=== PATIENT | male | born 1970 | race Caucasian/White ===

== ENCOUNTER → 2020-01-17 11:37 | Outpatient (BNVA) | payer OTHER, SELFPAY | PROVIDERS: PCP Family Medicine Adult Medicine; Visit Provider Physician Assistant Medical | DX: S16.1XXA Strain of muscle, fascia and tendon at neck level, initial encounter (principal); X50.3XXA Overexertion from repetitive movements, initial encounter | CPT/HCPCS: 72050; 99203 ==

== ENCOUNTER → 2020-01-22 10:03 | Outpatient (BNVA) | payer OTHER, SELFPAY | PROVIDERS: PCP Family Medicine Adult Medicine; Visit Provider Internal Medicine | DX: S16.1XXA Strain of muscle, fascia and tendon at neck level, initial encounter (principal); X58.XXXA Exposure to other specified factors, initial encounter | CPT/HCPCS: 99213 ==

== ENCOUNTER → 2020-01-25 14:49 | Outpatient (BNVA) | payer OTHER, SELFPAY | PROVIDERS: PCP Family Medicine Adult Medicine; Visit Provider Internal Medicine | DX: S16.1XXA Strain of muscle, fascia and tendon at neck level, initial encounter (principal); X58.XXXA Exposure to other specified factors, initial encounter; M50.33 Other cervical disc degeneration, cervicothoracic region | CPT/HCPCS: 99213 ==

== ENCOUNTER → 2020-01-29 13:47 | Outpatient (BNVA) | payer OTHER, SELFPAY | PROVIDERS: PCP Family Medicine Adult Medicine; Visit Provider Internal Medicine | DX: M50.33 Other cervical disc degeneration, cervicothoracic region (principal) | CPT/HCPCS: 99213 ==

== ENCOUNTER 2020-02-12 11:00 | Outpatient (RCR) | payer OTHER, SELFPAY ==
--- NOTE | 2020-03-05 15:46 | MHC.PT.OE ---
[facility] Office [place] Office [place] Office [address] [place]il [place] [address] [phone] F: [phone] F: [phone] F: [phone] F: [phone] Physical Therapy Evaluation Evaluation Date: 02/04/20 Current Condition Diagnosis: CERVICAL STRAIN Onset Date: JANUARY 17, 2020 Date of Surgery: Chief Complaint/ Current Level of Function: WAS MOVING FILE CABINETS IN THE AM AND THEN IN THE AFTERNOON WAS TO MOVE CAST IRON BATHTUBS WITH HANDTRUCK. BEGUN TO FEEL PAIN IN BACK, RATED SHARP AT THE TIME. PAIN CONTINUED THE DAY WENT ON AND BEGAN TO WORSEN AND THROB AND WAS SENT TO WORK CONNECTION. LAST FEW DAYS PAIN HAS BEEN INCREASING . WAS TAKING STERIODS BUT HAS NOW WEANED OFF AND PAIN IS RETURNING. PAIN BEGINS AT C-7 AND RADIATES INTO SHOULDER BLADE REGION, NOTES INCREASE IN HEADACHES IN TEMPORAL REGION. DENIES ARM SYMPTOMS EXCEPT AT NIGHT, THERE WILL BE SOME PINS AND NEEDLES. IMPROVES WITH MOVEMENT AND REPORTS DISRUPTED SLEEP. WORK CONNECTION FOLLOW UP 02/12/20 Prior Level of Function/Occupation: WORKS FOR [employer] IN [employer] Diagnostic Imaging: X-Ray Patient Goals and Expectations: Past Medical History: APPENDETOMY, Medications: VALIUM, TYLENOL, FLEXIRIL, NAPROXEN, CLARTIN Precautions/ Contraindications: NONE-SPECIFIED Outcome Measure: Pain Pain Score: 8 Pain Scale Used: Numeric (0 - 10) Pain Location/ Description: POSTERIOR NECJ AT ABOUT C7 WITH MUSCLE INTO PERISCAP REGION Aggravating Factors: Alleviating Factors: Objective Findings Posture: Forward Head Flattened C-Spine Rounded Shoulders Skin & Soft Tissue/ Palpation: INCREASED TISSUE TENSION WENDY UPPER TRAPS, TIGHT UPPER TRAP TRIGGER POINT AND MULTIPLE TENDER POINTS ALONG BORDER OF SCAP Gait/ Functional Mobility: AROM (PROM) Strength Cervical Spine Flexion: 40 Extension: 30 Lateral Flexion: 35 WENDY Rotation: 25 WENDY Cervical Comments: RESISTED MOTIONS ARE STRONG AND PAINFUL Flexion: Extension: Lateral Flexion: Rotation: Other: Shoulder Flexion: Extension: Abduction: ER: IR: Apley ER: Apley IR: Comments: WNLs, PAIN WITH RIGHT SHOULDER ABDUCTON Flexion: 4/5 Extension: 5/5 Abduction: 4/5 Adduction: NT ER: 06/09 IR: /5 Other: SS 4/ TERES MIN 06/09 Elbow Flexion: Extension: Pronation: Supination: Comments: Flexion: Extension: Pronation: Supination: Wrist Flexion: Wrist Extension: Other: Lumbar Spine Flexion: Extension: Lateral Flexion: Rotation: Comments: Transverse abdominus: Extensors: Other: Hip Flexion: Extension: Abduction: Adduction: ER: IR: Comment: Flexion: Extension: Abduction: Adduction: ER: IR: Other: Knee Flexion: Extension: Comments: Patella Mobility: Flexion: Extension: Other: Ankle Dorsiflexion: Plantarflexion: Inversion: Eversion: Comments: Dorsiflexion: Plantarflexion: Inversion: Eversion: Comments: Fiona Assessment: Sacroiliac Assessment: Muscle Length: Special Tests: Vitals: BP: HR: O2SAT: RR: Other: Balance: Neurological Screen: Biceps DTR: Brachioradialis DTR: Triceps DTR: Patella DTR: Achilles DTR: Other: Dermatomes: Sensation: Myotomes: Patient Education Primary Language Prydeinig Harp Action Assembler Required No Who was Educated Patient Readiness for Learning Accepting Current Knowledge Understands information with skills for self-management Education Needs ADL's Teaching Method Verbal Demonstration How did Patient Demonstrate Learning Patient demonstrates Patient verbalizes Barriers to Learning None Assessment Assessment: AAKASH IS A PLEASANT 49 YO WHO INJURED HIS NECK AT WORK WITH REPETITVE HEAVY/AWKWARD LIFTING OF BATHTUBS. HIS C/C IS NECK AND SCAPULAR PAIN WITH MOVEMENT AND AT NIGHT. PAIN IS DESCRIBED INTERMITTENT, SHARP , THROBBING AND WORSENS WITH ACTIVITY. UPON EXAM HE DEMONSTRATES DECREASED CERVICAL RANGE OF MOTION AND STRENGTH WITH HYPERMOBLITY AT C7, THERE IS DECREASED STRENGTH OF WENDY UE, ALTERED POSTURE AND POSITIONING LEADING TO INCREASED PAIN. FUNCTIONAL LIMIATIONS INCLUDE DECREASED TOLERANCE TO LIFTING, BENDING, PUSHING, PULLING AND SQUATTING, HE HAS DECREASED PARTICIPATION IN RECREATIONAL TASKS, DECREASED ABILITY TO PERFORM WORK TASKS AND DISRUPTED SLEEP. Rehabilitation Potential: Good Plan of Care Frequency and Duration 2XWEEK X 4 WEEKS Short Term Goals INITIATE HEP AND PROMOTE SELF MANAGEMENT OF SYMPTOMS IN 2 WEEKS Group Home Goals TO RTW FT/FD IN 6 WEEKS TO PERFORM FULL FUNCTIONAL FUNCTIONAL SQUAT WITHOUT PAIN GREATER THAN 2/10 IN 6 WEEKS TO DEMONSTRATE FULL PAIN FREE CERVICAL ROM IN 4 WEEKS Treatment Plan Therapeutic Exercise Dynamic Therapeutic Activities Neuromuscular Re-ed Manual Therapies Joint Mobilization Taping Gait Home Exercise Program Patient Education Electrical Stimulation Ultrasound Mechanical Traction Hot or Cold Pack Reviewed/ Agreed with Student Documentation: Therapist: Electronically signed by: Hilary Trujillo PTA Please sign and return to therapist. Thank you for your referral.
--- NOTE | 2020-03-11 14:40 | MHC.PT.DC ---
[facility] [place] Office [place] Office [place] Office [address] [place] [address] [phone] F: [phone] F: [phone] F: [phone] F: [phone] Physical Therapy Discharge Report Diagnosis: CERVICAL STRAIN Date of Surgery: Date of Evaluation: 02/04/20 Date of Discharge: 03/11/20 Treatments to Date: 2 Cancellations to Date: 0 No Shows to Date: 0 Discharge Status: Physician Discontinued Tx Discharge Summary: HAD BEEN PLACED ON HOLD BY WC PENDING MRI. HAS NOT RETURNED FOR PT IN OVER 30 DAYS AND IS DCed AT THIS TIME Electronically signed by: MARIAM GILMAN PT, DPT Please sign and return to therapist. Thank you for your referral.
== END 2020-03-11 14:56 | disposition other institution (70) ==
LOC: HO.PT 11:00
PROVIDERS: Visit Provider Internal Medicine
DX: S16.1XXD Strain of muscle, fascia and tendon at neck level, subsequent encounter (principal); M47.812 Spondylosis without myelopathy or radiculopathy, cervical region
CPT/HCPCS: 97012; 97110; 97140; 97162

== ENCOUNTER → 2020-02-13 14:51 | Outpatient (BNVA) | payer OTHER, SELFPAY | PROVIDERS: PCP Family Medicine Adult Medicine; Visit Provider Internal Medicine | DX: M47.812 Spondylosis without myelopathy or radiculopathy, cervical region (principal) | CPT/HCPCS: 99214 ==

== ENCOUNTER → 2020-02-20 14:21 | Outpatient (BNVA) | payer OTHER, SELFPAY | PROVIDERS: PCP Family Medicine Adult Medicine; Visit Provider Internal Medicine | DX: M54.2 Cervicalgia (principal) | CPT/HCPCS: 99213 ==

== ENCOUNTER 2020-02-22 16:25 | Outpatient (REF) | payer OTHER, SELFPAY ==
--- NOTE | 2020-02-22 | MR_ITS ---
EXAMINATION: MR CERVICAL SPINE WITHOUT CONTRAST CLINICAL INFORMATION: Neck pain. Left-sided shoulder pain. COMPARISON: Cervical spine radiographs from 01/17/2020. TECHNIQUE: MRI of the cervical spine was obtained using routine sequences without contrast. FINDINGS: Straightening of the normal cervical lordosis. Mild degenerative retrolisthesis of C6 on C7. Advanced degenerative disc disease at C6-C7. Moderate degenerative disc disease from C2 to C6. Associated mixed Modic type discogenic endplate changes including mild Modic type I discogenic edema at C6-C7. No additional suspicious marrow edema. Mild degenerative loss of C5 and C6 vertebral body heights. Otherwise, the vertebral body heights are well-maintained. The spinal cord is normal in appearance. Limited evaluation of the soft tissues of the neck without demonstrated abnormalities. The flow voids of the major cervical vessels are maintained. Normal appearance of the cervicomedullary junction and visualized posterior fossa. SPINAL LEVELS: C2-C3: Mild disc-osteophyte complex. There is no uncovertebral joint arthropathy. There is moderate left and moderate facet joint arthropathy. There is no neural foraminal stenosis. There is no spinal canal stenosis. C3-C4: Mild disc-osteophyte complex. There is mild bilateral uncovertebral joint arthropathy. There is mild bilateral facet joint arthropathy. There is mild bilateral neural foraminal stenosis. There is no spinal canal stenosis. C4-C5: Moderate disc-osteophyte complex. There is mild uncovertebral joint arthropathy. There is moderate bilateral facet joint arthropathy. There is mild bilateral neural foraminal stenosis. There is no spinal canal stenosis. C5-C6: Moderate disc-osteophyte complex eccentric to the right. There is moderate right and mild left uncovertebral joint arthropathy. There is moderate bilateral facet joint arthropathy. There is moderate right and no left neural foraminal stenosis. There is no spinal canal stenosis. C6-C7: Moderate disc-osteophyte complex. There is moderate bilateral uncovertebral joint arthropathy. There is moderate bilateral facet joint arthropathy. There is moderate to severe left and moderate neural foraminal stenosis. There is mild spinal canal stenosis. C7-T1: Mild disc-osteophyte complex eccentric to the left. There is no uncovertebral joint arthropathy. There is no facet joint arthropathy. There is no neural foraminal stenosis. There is no spinal canal stenosis. MR/MR cervical spine wo con IMPRESSION: Moderate multilevel degenerative spondyloarthropathy of the cervical spine as described in detail above. Most notably, there is mild spinal canal stenosis at C6-C7. Moderate neural foraminal stenoses at C5-C6 and C6-C7.
== END 2020-02-22 16:26 | disposition home or self-care (01) ==
LOC: HO.MRI 16:25
PROVIDERS: Visit Provider Internal Medicine
DX: M54.2 Cervicalgia (principal)
CPT/HCPCS: 72141

== ENCOUNTER → 2020-02-27 14:18 | Outpatient (BNVA) | payer OTHER, SELFPAY | PROVIDERS: PCP Family Medicine Adult Medicine; Visit Provider Internal Medicine | DX: M54.10 Radiculopathy, site unspecified (principal) | CPT/HCPCS: 99214 ==

== ENCOUNTER → 2020-03-12 14:05 | Outpatient (BNVA) | payer OTHER, SELFPAY | PROVIDERS: PCP Family Medicine Adult Medicine; Visit Provider Internal Medicine | DX: M50.30 Other cervical disc degeneration, unspecified cervical region (principal); M47.812 Spondylosis without myelopathy or radiculopathy, cervical region | CPT/HCPCS: 99213 ==

== ENCOUNTER 2021-04-15 19:31 | Outpatient (REF) | payer OTHER, MEDICAID, SELFPAY ==
--- NOTE | ~2021-04-15 | MR_ITS ---
EXAMINATION: MR CERVICAL SPINE WITHOUT CONTRAST CLINICAL INFORMATION: 50-year-old with complaints of neck pain, with positive EMG, with left-sided cervical radicular symptoms. Radiculopathy, cervical region. COMPARISON: 02/22/2020 MRI. TECHNIQUE: MRI of the cervical spine was obtained using routine sequences without contrast. FINDINGS: Alignment: The cervical spine is anatomically aligned. No significant spondylolisthesis or retrolisthesis. Craniocervical Junction/C1-C2 Articulations: Intact and aligned. Visualized Intracranial Structures: Within normal limits. Vertebral Bodies: Normal height. Disc Spaces and Endplates: Severe disc space height loss, tiny Schmorl's nodes, disc desiccation and mild spondylosis at C6-C7, stable in appearance. Moderate disc space height loss and qiph-wq-tdljywsa spondylosis at C5-C6, unchanged in appearance. Minimal spondylosis at C4-C5 with disc desiccation noted at C2-C3, C3-C4 and C4-C5, stable in appearance. Fewv-ld-mrdagjyy disc space height loss and minimal spondylosis at C7-T1, stable in appearance. Bone Marrow: No significant marrow-replacing process or bone marrow edema. There is type II degenerative marrow signal change seen along the endplates at C6-C7 stable in appearance. C2-C3: Minor posterolateral disc osteophyte complex stable from previous exam without significant spinal canal stenosis or cord impingement. No significant DJD or neural foraminal stenosis. C3-C4: Broad-based disc osteophyte complex again noted, with near effacement of the ventral dural sac without cord impingement, stable in appearance. No significant central spinal canal stenosis. There is mild facet arthropathy and uncovertebral spurring noted with mild bilateral neural foraminal stenosis, stable in appearance. C4-C5: Central disc protrusion and the disc osteophyte complex noted with the moderate flattening of the ventral dural sac without cord impingement, stable in appearance, without significant spinal canal stenosis. Bilateral lung of facet arthropathy and uncovertebral spurring again noted with rgjo-fk-cjlaacat right-sided and moderate left-sided neural foraminal stenosis, stable in appearance. C5-C6: Broad-based disc osteophyte complex asymmetric to the right again noted, with vzjr-xp-njxyhosm flattening of the dural sac, right more the left without cord impingement or significant central spinal canal stenosis, unchanged in appearance. Bilateral uncovertebral spurring and facet arthropathy also noted with moderate right-sided and jirw-cx-rkppfhvi left-sided neural foraminal stenosis, stable in appearance. C6-C7: Broad-based disc osteophyte complex again noted, with the icjk-qg-ianzgwpn flattening of the ventral dural sac with a superimposed broad-based central disc herniation, stable in appearance, without cord impingement. There is mild central spinal canal narrowing, stable in appearance. Bilateral uncovertebral spurring is again noted with rvwrclsq-pe-eksqyt left-sided and traf-vf-nlarmovt right-sided neural foraminal stenosis, unchanged in appearance. C7-T1: Disc osteophyte complex noted asymmetric to the left with slight flattening of the dural sac on the left, stable in appearance, without cord impingement or canal stenosis. There is uncovertebral spurring on the left, stable in appearance, with moderate left-sided neural foraminal stenosis, unchanged in appearance. The cervical and visualized upper thoracic spinal cord is normal in morphology, caliber and signal intensity throughout. Normal signal voids are seen in the visualized major extracranial vessels in the neck. MR/MR cervical spine wo con IMPRESSION: 1. Normal spinal alignment. Multilevel DDD and spondylosis similar to the previous exam. 2. Multilevel posterior disc osteophyte complexes and superimposed central disc protrusions, with flattening of the ventral dural sac without spinal cord impingement, stable in appearance, with stable mild spinal canal stenosis at C6-C7. 3. Stable multilevel uncovertebral and facet arthropathy bilaterally throughout the cervical spine as detailed above with stable multilevel bilateral neural foraminal stenosis as detailed by level above.
== END 2021-04-15 19:32 | disposition home or self-care (01) ==
LOC: HO.MRI 19:31
PROVIDERS: Visit Provider Orthopaedic Surgery Orthopaedic Surgery of the Spine
DX: M54.12 Radiculopathy, cervical region (principal)
CPT/HCPCS: 72141

== ENCOUNTER 2021-05-10 21:37 | Emergency (ER) | payer MEDICAID, SELFPAY ==
--- NOTE | ~2021-05-10 | XR_ITS ---
EXAMINATION: XR CHEST CLINICAL INFORMATION: Chest pain COMPARISON: Previous chest x-ray July 2010 TECHNIQUE: Frontal view of the chest was obtained. FINDINGS: No significant abnormality is noted involving the heart, lungs, mediastinum, bony thorax or soft tissues. XR/XR chest 1V IMPRESSION: Unremarkable examination.
--- NOTE | 2021-05-10 21:47 | ECG_ITS ---
Test Reason : CHEST PAIN Blood Pressure : / mmHG Vent. Rate : 071 BPM Atrial Rate : 071 BPM P-R Int : 152 ms QRS Dur : 086 ms QT Int : 388 ms P-R-T Axes : 021 021 036 degrees QTc Int : 421 ms Normal sinus rhythm Normal ECG No previous ECGs available Referred By: Generic ED Physician Electronically Signed By:KAJAL PRAKASH MD
[2021-05-10 22:17] VITALS: BP 134/78; PULSE 75; RESP 18; TEMP 37.1; O2SAT 97; BMI 32.8
[2021-05-10 22:45] LABS: MANUAL DIFF FLAG NO
[2021-05-10 22:48] LABS: Basophils Absolute Auto 0.1 X10*3/uL (0.0-0.2); Basophils Percent Auto 0.5 % (0-2); Eosinophils Absolute Auto 0.4 X10*3/uL (0.0-0.4); Eosinophils Percent Auto 4.4 % (0-4); Hemoglobin 14.2 g/dl (14.0-18.0); Imm Gran Abs Auto 0.02 X10*3/uL (0.00-0.03); Imm Gran Pct Auto 0.2 % (0.0-0.4); Lymphocytes Absolute Auto 3.4 X10*3/uL (1.2-4.9); Lymphocytes Percent Auto 37.1 % (20-40); Mean Corpuscular HGB Conc 35.5 g/dl (31.0-36.0); Mean Corpuscular Hemoglobin 31.5 pg (27.0-33.0); Mean Corpuscular Volume 88.7 fL (80.0-98.0); Mean Platelet Volume 9.5 fL (9.4-12.4); Monocytes Absolute Auto 0.8 X10*3/uL (0.1-1.2); Monocytes Percent Auto 8.4 % (2-11); Neutrophils Absolute Auto 4.5 x10*3/uL (2.0-8.3); Neutrophils Percent Auto 49.4 % (45-73); Platelet Count 256 X10*3/uL (160-400); Red Blood Count 4.51 X10*6/uL (4.60-5.80); Red Cell Distribution Width 12.1 % (11.0-16.0); White Blood Count 9.1 X10*3/uL (4.8-10.8)
[2021-05-10 22:49] LABS: Appearance Urine CLEAR; Color Urine YELLOW; Glucose Urine UA NEG (NEG); Leukocyte Esterase Urine NEG (NEG); Nitrite Urine NEG (NEG); PH 5.5 (5.0-8.0); Specific Gravity - Urine >= 1.030 (1.005-1.025); Urine Blood NEG (NEG); Urine Ketones NEG (NEG); Urine Protein NEG (NEG-TRACE)
[2021-05-10 23:06] LABS: Alanine Aminotransferase 49 U/L (0-40); Albumin Level 4.2 g/dL (3.5-5.0); Alkaline Phosphatase 79 U/L (39-117); Anion Gap 12 (12-20); Aspartate Amino Transferase 20 U/L (5-37); Bilirubin Total 0.5 mg/dL (0.0-1.0); Blood Urea Nitrogen 23 mg/dL (9-16); Calcium 9.5 mg/dL (8.4-10.2); Carbon Dioxide 24 mmol/L (22-29); Chloride 106 mmol/L (96-108); Creatinine Clr Calc Pharmacy 83.3; Estimated Glomerular Filt Rate > 60; Glucose Random 91 mg/dL (60-115); Potassium 3.9 mmol/L (3.3-5.1); Sodium 138 mmol/L (135-145)
[2021-05-10 23:13] LABS: Troponin-I High Sensitivity < 3.5 ng/L (<3.5-35.0)
[2021-05-11 00:52] VITALS: BP 156/92; PULSE 66; RESP 18; TEMP 36.6; O2SAT 97
--- NOTE | 2021-05-11 01:38 | ED.GENADULT ---
HPI - General Adult General Chief complaint: General Medical Stated complaint: chest pain Time Seen by Provider: 05/11/21 01:38 Source: patient Mode of arrival: ambulatory History of Present Illness HPI narrative: 50-year-old male with history of hypertension presents with complaints of ?pounding heart? that is been ongoing for a while now. There is no radiation to the back or upper extremity and this not been associated with new cough, fever, chills, nausea, vomiting and patient denies any recent alcohol use stating that he quit drinking alcohol over a year ago. Patient states that he has reproducible pain on palpation over the left anterior chest wall and denies any traumatic injury. Patient states the pain is worse in the morning but sometimes it is worse at night and denies any change with position in states when he takes a deep breath it also hurts. Related Data Previous Rx's Medication Instructions Recorded loratadine 10 mg tablet 10 mg PO DAILY #90 tab 05/14/20 Allergies Allergy/AdvReac Type Severity Reaction Status Date / Time From PERCOCET Allergy Unknown WHOOZY Uncoded 05/10/21 22:16 seasonal allergy Allergy Unknown Sneezing Uncoded 05/10/21 22:16 Review of Systems Review of Systems: Pertinent positives and negatives as stated in HPI 10 point review of systems is otherwise negative. PMFSH Past Medical History Source: nursing notes reviewed Social History Social History Alcohol intake: current Patient Tobacco Use Status: Never used Tobacco Use of substances other than those prescribed or required for medical reasons: No Advance Directives: No Advance Directives Information Provided: No Physical Exam ED Vital Signs: Vital Signs - 24 hr 05/10/21 22:17 05/11/21 00:52 Temperature 98.8 F 97.8 F Pulse Rate 75 66 Respiratory Rate 18 18 Blood Pressure 134/78 156/92 H Pulse Oximetry 97 97 BMI result Body Mass Index 32.8 VITAL SIGNS: Reviewed. GENERAL: Well developed, well nourished, appears very anxious HEAD: Normocephalic/atraumatic EYES: PERRLA, EOMI OROPHARYNX: no oral lesions noted, posterior pharynx clear LUNGS: Normal breath sounds. No adventitious sounds or accessory muscle use. SpO2<97>, CHEST WALL: Reproducible pain on palpation over left anterior chest CARDIOVASCULAR: Regular rate and rhythm without noted murmurs, no JVD or lower extremity edema. ABDOMEN: Soft, non-tender, non-distended with bowel sounds. MUSCULOSKELETAL: No tenderness, deformities, or effusions noted on gross inspection. EXTREMITIES: No cyanosis, clubbing or edema. SKIN: Inspection of the skin reveals no rashes NEUROLOGIC: Alert and oriented x 4. Strength and sensation to light touch were grossly intact x 4. Course Course Course Narrative: 50-year-old male with history and clinical presentation suggestive of possible costochondritis in combination with anxiety, low clinical suspicion for cardiopulmonary etiologies as there is no history of cough/fever, review of EKG and high sensitivity troponin are otherwise benign. Will provide patient with medication for anxiety. Low clinical suspicion for pericarditis, myocarditis, angina. D-dimer in conjunction with low clinical suspicion negative for evidence of VTE. All results and findings discussed with the patient at bedside and clinically he appears there is more calm after receiving the hydroxyzine. I did discussed with the patient that there may be a component of acid reflux as well as anxiety. He is otherwise discharged home in stable condition with instructions to follow-up with a primary care provider. Medical Decision Making Lab Data Result diagrams: 05/10/21 22:38 05/10/21 22:38 Labs: Lab Results 05/10/21 05/10/21 05/10/21 Range/Units 22:38 22:38 22:38 WBC 9.1 (4.8-10.8) X10*3/uL RBC 4.51 L (4.60-5.80) X10*6/uL Hgb 14.2 (14.0-18.0) g/dl Hct 40.0 L (42.0-52.0) % MCV 88.7 (80.0-98.0) fL MCH 31.5 (27.0-33.0) pg MCHC 35.5 (31.0-36.0) g/dl RDW 12.1 (11.0-16.0) % Plt Count 256 (160-400) X10*3/uL MPV 9.5 (9.4-12.4) fL Immature Gran % (Auto) 0.2 (0.0-0.4) % Neut % (Auto) 49.4 (45-73) % Lymph % (Auto) 37.1 (20-40) % [place] % (Auto) 8.4 (2-11) % Eos % (Auto) 4.4 H (0-4) % Baso % (Auto) 0.5 (0-2) % Lymph # (Auto) 3.4 (1.2-4.9) X10*3/uL [place] # (Auto) 0.8 (0.1-1.2) X10*3/uL Eos # (Auto) 0.4 (0.0-0.4) X10*3/uL Baso # (Auto) 0.1 (0.0-0.2) X10*3/uL Abs Immat Gran (auto) 0.02 (0.00-0.03) X10*3/uL Absolute Neuts (auto) 4.5 (2.0-8.3) x10*3/uL Absolute Nucleated RBC 0.000 (0.0-0.012) X10*3/uL Nucleated RBC % (auto) 0.0 (0.0-0.2) /100WBC D-Dimer High Sensitivty NG/ML Sodium 138 (135-145) mmol/L Potassium 3.9 (3.3-5.1) mmol/L Chloride 106 (96-108) mmol/L Carbon Dioxide 24 (22-29) mmol/L Anion Gap 12 (12-20) BUN 23 H (9-16) mg/dL Creatinine 1.14 (0.5-1.4) mg/dL Estim Creat Clear Calc 83.3 Estimated GFR > 60 Random Glucose 91 (60-115) mg/dL Calcium 9.5 (8.4-10.2) mg/dL Total Bilirubin 0.5 (0.0-1.0) mg/dL AST 20 (5-37) U/L ALT 49 H (0-40) U/L Alkaline Phosphatase 79 (39-117) U/L Troponin I High Sens < 3.5 (<3.5-35.0) ng/L Total Protein 7.0 (6.5-8.0) g/dL Albumin 4.2 (3.5-5.0) g/dL Lipase 77 (8-78) U/L Urine Color Urine Appearance Urine pH (5.0-8.0) Ur Specific [place] (1.005-1.025) Urine Protein (NEG-TRACE) MG/DL Urine Glucose (UA) (NEG) MG/DL Urine Ketones (NEG) MG/DL Urine Blood (NEG) Urine Nitrite (NEG) Ur Leukocyte Esterase (NEG) 05/10/21 05/11/21 Range/Units 22:38 02:05 WBC (4.8-10.8) X10*3/uL RBC (4.60-5.80) X10*6/uL Hgb (14.0-18.0) g/dl Hct (42.0-52.0) % MCV (80.0-98.0) fL MCH (27.0-33.0) pg MCHC (31.0-36.0) g/dl RDW (11.0-16.0) % Plt Count (160-400) X10*3/uL MPV (9.4-12.4) fL Immature Gran % (Auto) (0.0-0.4) % Neut % (Auto) (45-73) % Lymph % (Auto) (20-40) % [place] % (Auto) (2-11) % Eos % (Auto) (0-4) % Baso % (Auto) (0-2) % Lymph # (Auto) (1.2-4.9) X10*3/uL [place] # (Auto) (0.1-1.2) X10*3/uL Eos # (Auto) (0.0-0.4) X10*3/uL Baso # (Auto) (0.0-0.2) X10*3/uL Abs Immat Gran (auto) (0.00-0.03) X10*3/uL Absolute Neuts (auto) (2.0-8.3) x10*3/uL Absolute Nucleated RBC (0.0-0.012) X10*3/uL Nucleated RBC % (auto) (0.0-0.2) /100WBC D-Dimer High Sensitivty 233 NG/ML Sodium (135-145) mmol/L Potassium (3.3-5.1) mmol/L Chloride (96-108) mmol/L Carbon Dioxide (22-29) mmol/L Anion Gap (12-20) BUN (9-16) mg/dL Creatinine (0.5-1.4) mg/dL Estim Creat Clear Calc Estimated GFR Random Glucose (60-115) mg/dL Calcium (8.4-10.2) mg/dL Total Bilirubin (0.0-1.0) mg/dL AST (5-37) U/L ALT (0-40) U/L Alkaline Phosphatase (39-117) U/L Troponin I High Sens (<3.5-35.0) ng/L Total Protein (6.5-8.0) g/dL Albumin (3.5-5.0) g/dL Lipase (8-78) U/L Urine Color YELLOW Urine Appearance CLEAR Urine pH 5.5 (5.0-8.0) Ur Specific [place] >= 1.030 H (1.005-1.025) Urine Protein NEG (NEG-TRACE) MG/DL Urine Glucose (UA) NEG (NEG) MG/DL Urine Ketones NEG (NEG) MG/DL Urine Blood NEG (NEG) Urine Nitrite NEG (NEG) Ur Leukocyte Esterase NEG (NEG) ECG Data Attestation: I personally reviewed and interpreted this ECG as follows: Prior ECG tracings: not available for review Interpretation: Normal sinus rhythm, HR-71, no STEMI, IA/QRS/QTC are within normal limits. Discharge Plan Discharge Clinical Impression: Anxiety, Atypical chest pain Patient Disposition: Home, Self-Care Instructions: Anxiety (ED), Chest Wall Pain (ED), Costochondritis (ED) Additional Instructions: 1. Tylenol 1000 mg, orally, every 6 hours as needed for pain control. Do not exceed 4000 mg within 24 hours. 2. Recommend trying oaxa-hnb-hxsgxpt acid control medication as well for additional symptom relief. 3. Ibuprofen 400 mg, orally with milk or food, every 6 hours as needed for pain control. 4. Follow-up with your primary care provider in the next 2-3 days for re-evaluation further outpatient management. Return to the ER for worsening symptoms. Prescriptions: No Action loratadine 10 mg tablet 10 mg PO DAILY Qty: 90 3RF
[2021-05-11 01:56] LABS: Lipase 77 U/L (8-78)
[2021-05-11] MEDS: hydrOXYzine HCL 50 MG TABLET PO (02:13)
[2021-05-11 02:16] LABS: D Dimer High Sensitivity 233 NG/ML
--- NOTE | 2021-05-11 02:23 | PC.NURSE ---
I assumed nursing care of this pt upon his arrival to bed 4. Tc states he came tot he ED for chest heaviness/pressure and my breathing just doesn't feel right . He is alert, oriented x 3, makes eye contact with RN and is calm and cooperative. Speech is clear and appropriate. Tc appears mildly anxious.Respirations are spontaneous and non-labored, he speaks in full sentences, no cyanosis, room air sat's 95% or better. SR on bedside monitor. he currently denies chest pain but admits to tightness in his chest - 06/14. No nausea. No vomiting. he takes PO meds with Po fluids without difficulty. He has ambulated rom bed 4 to bathroom across from bed 2 and back to bed 4 independently and with steady gait. He voided in bathroom without difficulty. IV access/D-dimer obtained. Pt i awaiting MD dispo. We will continue to monitor Tc.
== END 2021-05-11 02:56 | disposition home or self-care (01) ==
PROVIDERS: Emergency Provider Student in an Organized Health Care Education/Training Program
DX: R07.89 Other chest pain (principal); F41.1 Generalized anxiety disorder; F43.0 Acute stress reaction; Z79.899 Other long term (current) drug therapy
CPT/HCPCS: 36415; 71045; 80053; 81003; 83690; 84484; 85025; 85379; 93005; 99284

== ENCOUNTER 2022-09-21 12:35 | Outpatient (REF) | payer MEDICAID, SELFPAY ==
[2022-09-21 13:37] LABS: MANUAL DIFF FLAG NO
[2022-09-21 13:59] LABS: Basophils Percent Auto 0.6 % (0-2); Eosinophils Absolute Auto 0.5 X10*3/uL (0.0-0.4); Eosinophils Percent Auto 6.9 % (0-4); Hematocrit 45.6 % (42.0-52.0); Hemoglobin 15.4 g/dl (14.0-18.0); Imm Gran Abs Auto 0.01 X10*3/uL (0.00-0.03); Imm Gran Pct Auto 0.1 % (0.0-0.4); Lymphocytes Absolute Auto 2.2 X10*3/uL (1.2-4.9); Lymphocytes Percent Auto 30.7 % (20-40); Mean Corpuscular HGB Conc 33.8 g/dl (31.0-36.0); Mean Corpuscular Hemoglobin 30.6 pg (27.0-33.0); Mean Corpuscular Volume 90.5 fL (80.0-98.0); Mean Platelet Volume 10.8 fL (9.4-12.4); Monocytes Absolute Auto 0.6 X10*3/uL (0.1-1.2); Monocytes Percent Auto 7.8 % (2-11); Neutrophils Absolute Auto 3.9 x10*3/uL (2.0-8.3); Neutrophils Percent Auto 53.9 % (45-73); Platelet Count 258 X10*3/uL (160-400); Red Blood Count 5.04 X10*6/uL (4.60-5.80); White Blood Count 7.2 X10*3/uL (4.8-10.8)
[2022-09-21 14:18] LABS: Estimated Average Glucose 108 mg/dL; Hemoglobin A1c % 5.4 %
[2022-09-21 15:02] LABS: Alanine Aminotransferase 33 U/L (0-40); Albumin Level 4.4 g/dL (3.5-5.0); Alkaline Phosphatase 98 U/L (39-117); Anion Gap 13 (12-20); Aspartate Amino Transferase 21 U/L (5-37); Bilirubin Total 0.8 mg/dL (0.0-1.0); Blood Urea Nitrogen 12 mg/dL (9-16); Calcium 9.9 mg/dL (8.4-10.2); Carbon Dioxide 26 mmol/L (22-29); Chloride 106 mmol/L (96-108); Cholesterol 215 mg/dL; Estimated Glomerular Filt Rate > 60; Glucose Random 82 mg/dL (60-115); HDL Cholesterol 27 mg/dL; LDL Cholesterol Calculated 170 mg/dl; Potassium 4.6 mmol/L (3.3-5.1); Sodium 140 mmol/L (135-145); Total Protein 7.7 g/dL (6.5-8.0); Triglycerides 93 mg/dL
[2022-09-21 15:07] LABS: TSH reflex Free T4 1.14 uIU/mL (0.32-4.0)
[2022-09-21 18:42] LABS: Creatinine Urine 158.24 mg/dL; Microalbum/Creatinine Ratio Ur 15.1 ug/mg cr
[2022-09-22 04:57] LABS: ~HepC Num1 0.07 S/CO (0.00-0.79); ~Hepatitis C Antibody Nonreactive (Nonreactive)
[2022-09-22 05:01] LABS: Syphilis Screen Nonreactive (Nonreactive)
[2022-09-22 05:03] LABS: HBS Num1 0.16 mIU/mL (0-7.99); HBc Num1 0.14 S/CO (0.00-0.79); HBsAGNum1 0.36 S/CO (0.00-0.99); HIV AB/AG Nonreactive (Nonreactive); HIV Num 1 0.05 S/CO (0.00-0.99); Hepatitis B Core Antibody Nonreactive (Nonreactive); Hepatitis B Surface Antigen Negative (Negative); ~Hepatitis B Surface Antibody NONREACTIVE (Nonreactive)
[2022-09-22 09:50] LABS: CT PCR NOT DETECTED (Not Detect.); NG PCR NOT DETECTED (Not Detect.)
== END 2022-09-21 12:36 | disposition home or self-care (01) ==
LOC: HO.HHCL 12:35
PROVIDERS: Visit Provider Student in an Organized Health Care Education/Training Program
DX: Z00.00 Encounter for general adult medical examination without abnormal findings (principal); Z11.4 Encounter for screening for human immunodeficiency virus [HIV]
CPT/HCPCS: 0353U; 80053; 80061; 82043; 83036; 84443; 85025; 86704; 86706; 86780; 86803; 87340; 87389

== ENCOUNTER 2022-11-19 11:04 | Outpatient (REF) | payer MEDICAID, SELFPAY ==
[2022-11-19 14:53] LABS: MANUAL DIFF FLAG NO
[2022-11-19 15:10] LABS: Basophils Absolute Auto 0.1 X10*3/uL (0.0-0.2); Basophils Percent Auto 0.8 % (0-2); Eosinophils Absolute Auto 0.6 X10*3/uL (0.0-0.4); Eosinophils Percent Auto 8.2 % (0-4); Hematocrit 43.5 % (42.0-52.0); Hemoglobin 14.7 g/dl (14.0-18.0); Imm Gran Abs Auto 0.01 X10*3/uL (0.00-0.03); Imm Gran Pct Auto 0.1 % (0.0-0.4); Lymphocytes Absolute Auto 2.4 X10*3/uL (1.2-4.9); Lymphocytes Percent Auto 32.3 % (20-40); Mean Corpuscular HGB Conc 33.8 g/dl (31.0-36.0); Mean Corpuscular Volume 91.8 fL (80.0-98.0); Mean Platelet Volume 10.1 fL (9.4-12.4); Monocytes Absolute Auto 0.5 X10*3/uL (0.1-1.2); Monocytes Percent Auto 7.4 % (2-11); Neutrophils Absolute Auto 3.7 x10*3/uL (2.0-8.3); Neutrophils Percent Auto 51.2 % (45-73); Platelet Count 288 X10*3/uL (160-400); Red Blood Count 4.74 X10*6/uL (4.60-5.80); Red Cell Distribution Width 12.4 % (11.0-16.0); White Blood Count 7.3 X10*3/uL (4.8-10.8)
[2022-11-19 15:39] LABS: Estimated Average Glucose 108 mg/dL; Hemoglobin A1c % 5.4 % (<6.0); Syphilis Screen Nonreactive (Nonreactive)
[2022-11-19 15:55] LABS: Alanine Aminotransferase 45 U/L (0-40); Albumin Level 4.4 g/dL (3.5-5.0); Alkaline Phosphatase 100 U/L (39-117); Anion Gap 11 (12-20); Aspartate Amino Transferase 26 U/L (5-37); Bilirubin Total 0.6 mg/dL (0.0-1.0); Blood Urea Nitrogen 21 mg/dL (9-16); Calcium 9.6 mg/dL (8.4-10.2); Carbon Dioxide 25 mmol/L (22-29); Chloride 107 mmol/L (96-108); Cholesterol 219 mg/dL (<200); Estimated Glomerular Filt Rate > 60; Glucose Random 88 mg/dL (60-115); HDL Cholesterol 28 mg/dL (>40); LDL Cholesterol Calculated 174 mg/dL (<100); Potassium 4.4 mmol/L (3.3-5.1); Sodium 139 mmol/L (135-145); TSH reflex Free T4 1.42 uIU/mL (0.32-4.0); Total Protein 7.6 g/dL (6.5-8.0); Triglycerides 89 mg/dL (<150)
[2022-11-19 16:09] LABS: Creatinine Urine 139.65 mg/dL; Microalbum/Creatinine Ratio Ur 27.2 ug/mg cr (<30)
[2022-11-20 04:28] LABS: HBS Num1 0.31 mIU/mL (0-7.99); HBc Num1 0.12 S/CO (0.00-0.79); HBsAGNum1 0.47 S/CO (0.00-0.99); HIV AB/AG Nonreactive (Nonreactive); HIV Num 1 0.05 S/CO (0.00-0.99); Hepatitis B Core Antibody Nonreactive (Nonreactive); Hepatitis B Surface Antigen Negative (Negative); ~Hepatitis B Surface Antibody NONREACTIVE (Nonreactive)
[2022-11-20 04:33] LABS: ~HepC Num1 0.08 S/CO (0.00-0.79); ~Hepatitis C Antibody Nonreactive (Nonreactive)
[2022-11-20 05:41] LABS: CT PCR NOT DETECTED (Not Detect.); NG PCR NOT DETECTED (Not Detect.)
[2022-11-22 16:19] LABS: TS Negative Control Passed; TS Panel A 0; TS Panel B 0; TS Positive Control Passed; TSpotTB Negative (Negative)
== END 2022-11-19 11:05 | disposition home or self-care (01) ==
LOC: HO.HHCL 11:04
PROVIDERS: Visit Provider Internal Medicine
DX: Z00.00 Encounter for general adult medical examination without abnormal findings (principal); Z11.4 Encounter for screening for human immunodeficiency virus [HIV]; Z11.1 Encounter for screening for respiratory tuberculosis; Z11.3 Encounter for screening for infections with a predominantly sexual mode of transmission; L40.8 Other psoriasis
CPT/HCPCS: 0353U; 80053; 80061; 82043; 82570; 83036; 84443; 85025; 86481; 86704; 86706; 86780; 86803; 87340; 87389

== ENCOUNTER 2023-01-25 13:01 | Outpatient (REF) | payer MEDICAID, SELFPAY ==
--- NOTE | ~2023-01-25 | XR_ITS ---
EXAMINATION: XR CHEST CLINICAL INFORMATION: Cough. Treated for pneumonia last month. COMPARISON: Chest x-ray 05/10/2021 TECHNIQUE: 2 views of the chest were obtained. FINDINGS: The lungs are well-expanded and clear. The heart size and pulmonary vascularity is normal. There is mild spondylosis dorsal spine. XR/XR chest 2V IMPRESSION: No acute cardiopulmonary process seen.
== END 2023-01-25 13:02 | disposition home or self-care (01) ==
LOC: HO.HHCX 13:01
PROVIDERS: Visit Provider Student in an Organized Health Care Education/Training Program
DX: J18.9 Pneumonia, unspecified organism (principal)
CPT/HCPCS: 71046

== ENCOUNTER 2023-07-11 15:22 | Inpatient (IN) | payer MEDICAID, SELFPAY ==
[2023-07-11] VITALS (9 sets, daily range): BP systolic 130–147; BP diastolic 58–82; PULSE 90–106; RESP 18–29; TEMP 36.5–36.8; O2SAT 90–95; BMI 38.1
--- NOTE | ~2023-07-11 | XR_ITS ---
EXAMINATION: XR CHEST CLINICAL INFORMATION: Shortness of breath COMPARISON: Chest 01/25/2023 TECHNIQUE: AP upright portable view of the chest was obtained. 4:00 PM FINDINGS: The lungs are well expanded. No focal consolidation, interstitial pulmonary edema or pneumothorax. No pleural effusion. No significant abnormality is noted involving the heart, mediastinum or soft tissues. Metallic densities are again seen over the lower cervical spine. XR/XR chest 1V IMPRESSION: No acute cardiopulmonary disease.
--- NOTE | 2023-07-11 15:38 | ECG_ITS ---
Test Reason : SOB Blood Pressure : / mmHG Vent. Rate : 103 BPM Atrial Rate : 103 BPM P-R Int : 118 ms QRS Dur : 090 ms QT Int : 366 ms P-R-T Axes : 070 033 056 degrees QTc Int : 479 ms Sinus tachycardia Nonspecific ST abnormality Abnormal ECG When compared with ECG of 10-MAY-2021 21:47, ST now depressed in Lateral leads QT has lengthened Referred By: Coretta Oscar Electronically Signed By:Isreal Her
--- NOTE | 2023-07-11 15:53 | ED.SOB ---
HPI - SOB/Dyspnea General Chief Complaint: Asthma Stated Complaint: SOB,HX ADTHMA, ON DUONEB. Time Seen by Provider: 07/11/23 15:52 Source: patient, family and EMS Mode of arrival: EMS History of Present Illness HPI Narrative: 52-year-old male who is received DuoNebs, Solu-Medrol, Mag. Comes in with worsening shortness breath over the past few days, started on 6 L nasal cannula at the clinic and has a history of asthma. Patient denies any smoking/vaping history. Related Data Home Medications ?Medication ?Instructions ?Recorded ?Confirmed clonazepam 09/09/22 ibuprofen 09/09/22 tramadol 50 mg PO DAILY PRN Pain 09/09/22 Previous Rx's ?Medication ?Instructions ?Recorded loratadine 10 mg tablet 10 mg PO DAILY #90 tabs 05/14/20 Allergies Allergy/AdvReac Type Severity Reaction Status Date / Time oxycodone [From Percocet] Allergy whoozy Verified 07/11/23 15:55 Review of Systems Review of Systems: Pertinent positives and negatives as stated in HPI PMFSH Past Medical History Source: nursing notes reviewed Medical History Seasonal allergies Neck pain Surgical History History of colonoscopy with polypectomy Hx of appendectomy Social History Social History Alcohol intake: current Patient Tobacco Use Status: Never used Tobacco Advance Directives: No Advance Directives Information Provided: No Do you have a plan to hurt others: No Plan Physical Exam Vital Signs: Vital Signs: Last Vital Signs Temp 97.7 F 07/11/23 16:38 Pulse 106 H 07/11/23 17:41 Resp 21 H 07/11/23 17:41 BP 137/67 07/11/23 16:38 Pulse Ox 90 L 07/11/23 15:51 O2 Del Method Nasal Cannula 07/11/23 16:38 O2 Flow Rate 4 07/11/23 16:38 Oxygen Flow Rate 4 07/11/23 15:51 BMI result Body Mass Index 38.1 VITAL SIGNS: Reviewed. GENERAL: Well developed, well nourished, in no acute distress. HEAD: Normocephalic/atraumatic EYES: PERRLA, EOMI EARS: Ext canals without abnormality NOSE: Nares patent bilateral OROPHARYNX: no oral lesions noted, posterior pharynx clear NECK: Supple, no adenopathy LUNGS: Decreased breath sounds throughout with tachypnea and increased work of breathing. SpO2<90> on 3 L nasal cannula CARDIOVASCULAR: Regular rate and rhythm without noted murmurs, no JVD or lower extremity edema. ABDOMEN: Soft, non-tender, non-distended with bowel sounds. MUSCULOSKELETAL: No tenderness, deformities, or effusions noted on gross inspection. EXTREMITIES: No cyanosis, clubbing or edema. SKIN: Inspection of the skin reveals no rashes NEUROLOGIC: Alert and oriented x 4. Strength and sensation to light touch were grossly intact x 4. Medications Administered Discontinued Medications Generic Name Dose Route Start Last Admin Trade Name Freq PRN Reason Stop Dose Admin Albuterol Sulfate 7.5 mg/ 0 mg 07/11/23 16:08 07/11/23 16:15 Albuterol/Ipratropium 3 ml INHALE 07/11/23 16:09 10 each ONCE ONE Administration Levalbuterol HCl 3.75 mg 07/11/23 16:57 07/11/23 17:03 Levalbuterol Hcl 1.25 Mg/3 Ml Vial.Neb INHALE 07/11/23 16:58 3.75 mg ONCE ONE Administration Levalbuterol HCl 2.5 mg 07/11/23 17:35 07/11/23 17:40 Levalbuterol Hcl 1.25 Mg/3 Ml Vial.Neb INHALE 07/11/23 17:36 2.5 mg ONCE ONE Administration Medical Decision Making Medical Decision Making [facility] Narrative: 52-year-old male with history and clinical presentation, DDX: Acute severe asthma exacerbation and already received DuoNeb/Solu-Medrol/magnesium INTERVENTION: ED bronch protocol, supplemental oxygen I reviewed all investigations and hematologic indices are negative for leukocytosis/anemia/thrombocytopenia. Chemistry indices negative for JAYSON/electrolyte or liver enzyme derangements and high sensitivity troponin is undetectable. Viral testing is negative for influenza/RSV/COVID-19 and chest x-ray is negative for infiltrate or venous congestion and otherwise my interpretation is in agreement with radiology's impression of the chest x-ray. Patient has received several doses of nebulized treatments and is gradually starting to open up but continues to require supplemental oxygen. 1748: I discussed case with inpatient hospitalist who accepts admission. Differential Diagnosis Differential Diagnoses: The differential diagnosis associated with the presentation includes Please see the discussion above Admission/Observation Consideration of admission/observation: Escalation of care including admission/observation considered Please see the discussion above Consult Healthcare Provider Management of the patient was discussed with: Hospitalist Please see the discussion above Lab Data MDM Lab Attestation statement: I reviewed the patient's lab results. Please see the discussion above 07/11/23 16:52 07/11/23 16:52 Labs: Lab Results 07/11/23 Range/Units 16:52 WBC 10.6 (4.8-10.8) X10*3/uL RBC 4.54 L (4.60-5.80) X10*6/uL Hgb 14.4 (14.0-18.0) g/dl Hct 40.6 L (42.0-52.0) % MCV 89.4 (80.0-98.0) fL MCH 31.7 (27.0-33.0) pg MCHC 35.5 (31.0-36.0) g/dl RDW 12.4 (11.0-16.0) % Plt Count 251 (160-400) X10*3/uL MPV 9.3 L (9.4-12.4) fL Immature Gran % (Auto) 0.3 (0.0-0.4) % Neut % (Auto) 65.0 (45-73) % Lymph % (Auto) 18.5 L (20-40) % [place] % (Auto) 5.0 (2-11) % Eos % (Auto) 10.6 H (0-4) % Baso % (Auto) 0.6 (0-2) % Lymph # (Auto) 2.0 (1.2-4.9) X10*3/uL [place] # (Auto) 0.5 (0.1-1.2) X10*3/uL Eos # (Auto) 1.1 H (0.0-0.4) X10*3/uL Baso # (Auto) 0.1 (0.0-0.2) X10*3/uL Abs Immat Gran (auto) 0.03 (0.00-0.03) X10*3/uL Absolute Neuts (auto) 6.9 (2.0-8.3) x10*3/uL Absolute Nucleated RBC 0.000 (0.0-0.012) X10*3/uL Nucleated RBC % (auto) 0.0 (0.0-0.2) /100WBC Sodium 143 (135-145) mmol/L Potassium 3.6 (3.3-5.1) mmol/L Chloride 111 H (96-108) mmol/L Carbon Dioxide 21 L (22-29) mmol/L Anion Gap 15 (12-20) BUN 13 (9-16) mg/dL Creatinine 1.01 (0.5-1.4) mg/dL Estim Creat Clear Calc 99.0 Estimated GFR > 60 Random Glucose 133 H (60-115) mg/dL Calcium 9.3 (8.4-10.2) mg/dL Magnesium 2.4 (1.6-2.6) mg/dL Total Bilirubin 0.6 (0.0-1.0) mg/dL AST 18 (5-37) U/L ALT 24 (0-40) U/L Alkaline Phosphatase 98 (39-117) U/L Troponin I High Sens < 2.7 (<3.5-35.0) ng/L Total Protein 7.4 (6.5-8.0) g/dL Albumin 4.1 (3.5-5.0) g/dL Influenza Type A (PCR) NEGATIVE (Negative) Influenza Type B (PCR) NEGATIVE (Negative) RSV RNA Qual (PCR) NEGATIVE (Negative) SARS-CoV-2 RNA (RT-PCR) NEGATIVE (Negative) Independent Interpretation I performed an independent interpretation of an: EKG Interpretation: Sinus tachycardia, HR-103, no STEMI, NE/QRS/QTC is within normal limits. Nonspecific ST-T changes. Radiology Impression Discussion of test interpretation with radiology: I have reviewed the radiologist's reading. Radiologist Impression: Please see the discussion above External Record Review External record reviewed: Outpatient record, Prior outpatient labs and Prior outpatient radiology Chronic Conditions Asthma Critical Care Time Critical Care Time Critical Care Time: Yes Total Critical Care Time: 60 Attestation: I personally attest to this time spent taking care of the patient. Discharge Plan Discharge Clinical Impression: Asthma exacerbation, Acute hypoxemic respiratory failure Patient Disposition: Admitted As Inpatient Print Language: Yemeni
[2023-07-11] MEDS: Albuterol Sulfate 7.5 MG, Albuterol/Iprat 2.5/0.5MG 3 ML 3 ML INHALE (16:15)
[2023-07-11 16:58] LABS: MANUAL DIFF FLAG NO
[2023-07-11 16:59] LABS: Basophils Absolute Auto 0.1 X10*3/uL (0.0-0.2); Basophils Percent Auto 0.6 % (0-2); Eosinophils Absolute Auto 1.1 X10*3/uL (0.0-0.4); Eosinophils Percent Auto 10.6 % (0-4); Hematocrit 40.6 % (42.0-52.0); Hemoglobin 14.4 g/dl (14.0-18.0); Imm Gran Abs Auto 0.03 X10*3/uL (0.00-0.03); Imm Gran Pct Auto 0.3 % (0.0-0.4); Lymphocytes Percent Auto 18.5 % (20-40); Mean Corpuscular HGB Conc 35.5 g/dl (31.0-36.0); Mean Corpuscular Hemoglobin 31.7 pg (27.0-33.0); Mean Corpuscular Volume 89.4 fL (80.0-98.0); Mean Platelet Volume 9.3 fL (9.4-12.4); Monocytes Absolute Auto 0.5 X10*3/uL (0.1-1.2); Neutrophils Absolute Auto 6.9 x10*3/uL (2.0-8.3); Platelet Count 251 X10*3/uL (160-400); Red Blood Count 4.54 X10*6/uL (4.60-5.80); Red Cell Distribution Width 12.4 % (11.0-16.0); White Blood Count 10.6 X10*3/uL (4.8-10.8)
[2023-07-11] MEDS: levalbuterol HCL 1.25 MG/3 ML VIAL.NEB 3.75 MG INHALE (17:03)
[2023-07-11 17:14] LABS: Alanine Aminotransferase 24 U/L (0-40); Albumin Level 4.1 g/dL (3.5-5.0); Alkaline Phosphatase 98 U/L (39-117); Anion Gap 15 (12-20); Aspartate Amino Transferase 18 U/L (5-37); Bilirubin Total 0.6 mg/dL (0.0-1.0); Blood Urea Nitrogen 13 mg/dL (9-16); Calcium 9.3 mg/dL (8.4-10.2); Carbon Dioxide 21 mmol/L (22-29); Chloride 111 mmol/L (96-108); Estimated Glomerular Filt Rate > 60; Glucose Random 133 mg/dL (60-115); Magnesium 2.4 mg/dL (1.6-2.6); Potassium 3.6 mmol/L (3.3-5.1); Sodium 143 mmol/L (135-145); Total Protein 7.4 g/dL (6.5-8.0)
[2023-07-11 17:32] LABS: Troponin-I High Sensitivity < 2.7 ng/L (<3.5-35.0)
[2023-07-11] MEDS: levalbuterol HCL 1.25 MG/3 ML VIAL.NEB 2.5 MG INHALE (17:40)
[2023-07-11 17:43] LABS: Influenza A PCR NEGATIVE (Negative); Influenza B PCR NEGATIVE (Negative); Resp Syncy Virus RNA Qual PCR NEGATIVE (Negative); SARS COV2 PCR INHOUSE NEGATIVE (Negative)
[2023-07-11 18:18] LABS: VBG Base Excess -4.4 mmol/L; VBG HCO3 20 mmol/L (22-26); VBG pCO2 34 mmHg; VBG pH 7.37 (7.32-7.43); VBG pO2 43 mmHg
[2023-07-11 18:18] LABS: Venous Blood Gas Refer to POC result
--- NOTE | 2023-07-11 18:25 | P.HPHOSP_ITS ---
History of Present Illness Date of Service: 07/11/23 Chief Complaint: shortness of breath 52-year-old gentleman with essentially no past medical history save asthma presents with 2-3 days of worsening shortness of breath. He states his last acute exacerbation was proximally 10 years remote. He states his inhalers were not helpful to relieve his symptoms. Upon arrival to emergency room patient required 6 L of O2 to maintain sats greater than equal to 90%. He received DuoNebs/magnesium with fair results Review of Systems 2 Review of Systems: Denies chest pain Admits shortness of breath at rest and with minimal exertion Denies nausea vomiting diarrhea Denies fever chills PMFSH Medical History Seasonal allergies Neck pain Surgical History History of colonoscopy with polypectomy Hx of appendectomy Social History Alcohol intake: current Patient Tobacco Use Status: Never used Tobacco Advance Directives: No Advance Directives Information Provided: No Do you have a plan to hurt others: No Plan Meds Allergies Allergy/AdvReac Type Severity Reaction Status Date / Time oxycodone [From Percocet] Allergy whoozy Verified 07/11/23 15:55 Active Medications: Current Medications Acetaminophen (Acetaminophen 325 Mg Tablet) 650 mg PO Q6H PRN PRN Reason: Pain, Mild (Pain Scale 1-3) Al Hydroxide/Mg Hydroxide (Magnesium Hydrox/Alum Hydrox 30 Ml Oral.Susp) 30 ml PO Q4H PRN PRN Reason: Heartburn/Nausea Enoxaparin Sodium (Enoxaparin Sodium 40 Mg/0.4 Ml Syringe) 40 mg SUBCUT Q24H [facility] Doxycycline Hyclate 100 mg/ (Sodium Chloride) 250 mls @ 166.67 mls/hr IV Q12H [facility] Methylprednisolone Sodium Succinate (Methylprednisolone Sod Succ 125 Mg/2 Ml Vial) 125 mg IVPUSH ONCE ONE Stop: 07/11/23 18:23 Methylprednisolone Sodium Succinate (Methylprednisolone Sod Succ 125 Mg/2 Ml Vial) 60 mg IVPUSH Q6H [facility] Ondansetron HCl (Ondansetron Hcl 4 Mg/2 Ml Vial) 4 mg IVPUSH Q8H PRN PRN Reason: Nausea and Vomiting Sodium Chloride (0.9 % Sodium Chloride Flush 3 Ml Syringe) 3 ml IVFLUSH QSHIFT [facility] Home Medications ?Medication ?Instructions ?Recorded ?Confirmed ?Last Taken ?Type albuterol sulfate 2.5 mg/3 mL 2.5 mg inhalation Q4H PRN 07/11/23 Unknown History (0.083 %) solution for nebulization Shortness Of Breath Or Wheezing budesonide 180 mcg/actuation 2 inh inhalation BID 07/11/23 Unknown History breath activated powder inhaler (Pulmicort Flexhaler) bupropion HCl 150 mg tablet,12 hr 150 mg PO BID 07/11/23 Unknown History sustained-release fexofenadine 180 mg tablet 180 mg PO DAILY 07/11/23 Unknown History fluticasone propionate 50 1 - 2 spray intranasal QAM 07/11/23 Unknown History mcg/actuation nasal spray,suspension ipratropium 20 mcg-albuterol 100 1 puff inhalation QID 07/11/23 Unknown History mcg/actuation mist for inhalation (Combivent Respimat) Physical Exam 2 Vital Signs and Narrative: Vital Signs: Last Vital Signs Temp 97.7 F 07/11/23 16:38 Pulse 106 H 07/11/23 17:41 Resp 21 H 07/11/23 17:41 BP 137/67 07/11/23 16:38 Pulse Ox 90 L 07/11/23 15:51 O2 Del Method Nasal Cannula 07/11/23 16:38 O2 Flow Rate 4 07/11/23 16:38 Oxygen Flow Rate 4 07/11/23 15:51 BMI result Body Mass Index 38.1 Const: Other: Awake alert able to speak in short sentences only Resp: Other: Diminished at bases with diffuse expiratory wheezes Cardio: Other: No S4; positive S1-S2; no S3 murmurs rubs or gallops GI: Other: Soft nontender nondistended normoactive bowel sounds Neuro: Other: Cranial nerves 2-12 grossly intact as tested. Motor is 5/5 all extremities. Sensation is intact Extrem: Other: No edema bilaterally Results Labs 07/11/23 16:52 07/11/23 16:52 Labs: Laboratory Results - last 24 hr 07/11/23 07/11/23 16:52 18:12 MCV 89.4 MCH 31.7 MCHC 35.5 RDW 12.4 Plt Count 251 MPV 9.3 L Immature Gran % (Auto) 0.3 Neut % (Auto) 65.0 Lymph % (Auto) 18.5 L [place] % (Auto) 5.0 Eos % (Auto) 10.6 H Baso % (Auto) 0.6 Lymph # (Auto) 2.0 [place] # (Auto) 0.5 Eos # (Auto) 1.1 H Baso # (Auto) 0.1 Abs Immat Gran (auto) 0.03 Absolute Neuts (auto) 6.9 Absolute Nucleated RBC 0.000 Nucleated RBC % (auto) 0.0 VBG pH 7.37 VBG pCO2 34 VBG pO2 43 VBG HCO3 20 L VBG O2 Saturation 69.0 VBG Base Excess -4.4 Anion Gap 15 Estim Creat Clear Calc 99.0 Estimated GFR > 60 Random Glucose 133 H Calcium 9.3 Magnesium 2.4 Total Bilirubin 0.6 AST 18 ALT 24 Alkaline Phosphatase 98 Troponin I High Sens < 2.7 Total Protein 7.4 Albumin 4.1 Influenza Type A (PCR) NEGATIVE Influenza Type B (PCR) NEGATIVE RSV RNA Qual (PCR) NEGATIVE SARS-CoV-2 RNA (RT-PCR) NEGATIVE Imaging Radiologist's Impressions: Impressions Chest X-Ray 07/11/23 16:00 IMPRESSION: No acute cardiopulmonary disease. Assessment and Plan (1) Acute hypoxemic respiratory failure: Status: Acute (2) Asthma exacerbation: Qualifiers: Asthma severity: mild Asthma persistence: intermittent Qualified Code(s): J45.21 - Mild intermittent asthma with (acute) exacerbation Status: Acute Plan 52-year-old male with known history of asthma in the absence of tobacco or any other inhaled substance presents with worsening shortness of breath over 2-3 days that has failed outpatient therapies. He does recount a productive cough of green sputum 1. Acute hypoxic respiratory failure secondary to mild intermittent asthma exacerbation -pulse dose methylprednisolone -DuoNebs q.4 hours -doxycycline 100 mg IV q.12 hours -titrate O2 to maintain sats greater than equal to 92% Full code Boots Requires at least 2 midnights going forward of inpatient stay for pulse dose methylprednisolone and doxycycline to treat asthma exacerbation that has failed outpatient therapies. This can not be achieved a lesser acute setting Quality Stroke Does the patient have a stroke diagnosis?: No VTE Prior VTE?: No VTE Risk Level:: Medical - moderate - high VTE Device Contraindication: Treatment Not Indicated VTE Drug Contraindication: N/A - Med Ordered
[2023-07-11] MEDS: Albuterol/Iprat 2.5/0.5MG 3 ML AMPUL.NEB INHALE ×2 (18:42→20:50)
--- NOTE | 2023-07-11 19:07 | PHA.MEDREC ---
Pharmacy Consult ? Medication Reconciliation Pharmacy has completed the medication reconciliation. Patient reported medications. Nely Flower, MonicaD
[2023-07-11] MEDS: methylPREDNISolone Sod Succ 125 MG/2 ML VIAL IVPUSH (19:14)
[2023-07-11] MEDS: Enoxaparin Sodium 40 MG/0.4 ML SYRINGE SUBCUT (19:15)
[2023-07-11] MEDS: Doxycycline Hyclate 100 MG in 0.9 % Sodium Chloride 250 ML 166.67 MG IV (19:15)
[2023-07-12] VITALS (12 sets, daily range): BP systolic 108–136; BP diastolic 49–72; PULSE 86–103; RESP 18–27; TEMP 36.2–37; O2SAT 92–95
[2023-07-12 06:07] LABS: MANUAL DIFF FLAG NO
[2023-07-12 06:10] LABS: Basophils Percent Auto 0.2 % (0-2); Hemoglobin 13.6 g/dl (14.0-18.0); Imm Gran Abs Auto 0.07 X10*3/uL (0.00-0.03); Imm Gran Pct Auto 0.6 % (0.0-0.4); Lymphocytes Percent Auto 8.9 % (20-40); Mean Corpuscular Hemoglobin 30.9 pg (27.0-33.0); Mean Corpuscular Volume 90.9 fL (80.0-98.0); Monocytes Absolute Auto 0.1 X10*3/uL (0.1-1.2); Monocytes Percent Auto 0.7 % (2-11); Neutrophils Absolute Auto 9.9 x10*3/uL (2.0-8.3); Neutrophils Percent Auto 89.6 % (45-73); Platelet Count 271 X10*3/uL (160-400); Red Cell Distribution Width 12.5 % (11.0-16.0); White Blood Count 11.1 X10*3/uL (4.8-10.8)
[2023-07-12 06:33] LABS: Alanine Aminotransferase 23 U/L (0-40); Alkaline Phosphatase 90 U/L (39-117); Anion Gap 19 (12-20); Aspartate Amino Transferase 14 U/L (5-37); Bilirubin Total 0.4 mg/dL (0.0-1.0); Blood Urea Nitrogen 18 mg/dL (9-16); Calcium 9.8 mg/dL (8.4-10.2); Carbon Dioxide 16 mmol/L (22-29); Chloride 111 mmol/L (96-108); Estimated Glomerular Filt Rate > 60; Glucose Random 145 mg/dL (60-115); Potassium 3.6 mmol/L (3.3-5.1); Sodium 142 mmol/L (135-145); Total Protein 7.1 g/dL (6.5-8.0)
[2023-07-12] MEDS: Doxycycline Hyclate 100 MG in 0.9 % Sodium Chloride 250 ML 166.67 MG IV ×2 (07:33→20:09)
[2023-07-12] MEDS: methylPREDNISolone Sod Succ 125 MG/2 ML VIAL 60 MG IVPUSH ×3 (07:33→18:06)
[2023-07-12] MEDS: 0.9 % Sodium Chloride Flush 3 ML SYRINGE IVFLUSH ×2 (07:33→15:33)
--- NOTE | 2023-07-12 08:01 | PC.NURSE ---
alert and oriented, resting quietly in room. reporting feeling much better than when he presented yesterday. eating breakfast at this time. offering no other complaints, remains on the oxymask. call gudino is within reach.
[2023-07-12] MEDS: Albuterol/Iprat 2.5/0.5MG 3 ML AMPUL.NEB INHALE ×5 (08:21→23:16)
--- NOTE | 2023-07-12 09:29 | MHC.CM.PN ---
Patient lives in a home w/ step father. Functionally independent. PCP Kylee Garcia MD @ [facility] Completed HCP naming agents 1) Latha Cadena [phone], 2) son José Miguel Faisal [phone] DP: Goal is home self care via private transport. CM will continue to follow.
--- NOTE | 2023-07-12 10:50 | P.PNIM_ITS ---
Subjective Subjective Date of Service: 07/12/23 Review of Systems Follow up asthma exacerbation feeling better still with cough Physical Exam 2 Vital Signs: Vital Signs: Last Vital Signs Temp 98.2 F 07/12/23 08:00 Pulse 96 07/12/23 08:22 Resp 19 07/12/23 08:22 BP 136/72 07/12/23 08:00 Pulse Ox 92 07/12/23 08:00 O2 Del Method Aerosol Mask 07/12/23 08:00 O2 Flow Rate 3.0 07/12/23 08:00 Oxygen Flow Rate 4 07/11/23 15:51 BMI result Body Mass Index 38.1 Appearing in no acute distress lung sounds are clear to auscultation heart regular rate rhythm, clear S1, S2 positive bowel sounds, abdomen is soft, nontender neuro patient is alert x3, no focal deficits Objective Data Active Medications Acetaminophen (Acetaminophen 325 Mg Tablet) 650 mg PO Q6H PRN PRN Reason: Pain, Mild (Pain Scale 1-3) Al Hydroxide/Mg Hydroxide (Magnesium Hydrox/Alum Hydrox 30 Ml Oral.Susp) 30 ml PO Q4H PRN PRN Reason: Heartburn/Nausea Albuterol/Ipratropium (Albuterol/Iprat 2.5/0.5mg 3 Ml Ampul.Neb) 3 ml INHALE RQ4H [facility] Last Admin: 07/12/23 08:21 Dose: 3 ml Documented By: ALYSA Enoxaparin Sodium (Enoxaparin Sodium 40 Mg/0.4 Ml Syringe) 40 mg SUBCUT Q24H [facility] Last Admin: 07/11/23 19:15 Dose: 40 mg Documented By: DARREL Doxycycline Hyclate 100 mg/ (Sodium Chloride) 250 mls @ 166.67 mls/hr IV Q12H [facility] Last Infusion: 07/12/23 09:06 Dose: Infused Documented By: PHUC Methylprednisolone Sodium Succinate (Methylprednisolone Sod Succ 125 Mg/2 Ml Vial) 60 mg IVPUSH Q6H [facility] Last Admin: 07/12/23 07:33 Dose: 60 mg Documented By: CLAIRE Ondansetron HCl (Ondansetron Hcl 4 Mg/2 Ml Vial) 4 mg IVPUSH Q8H PRN PRN Reason: Nausea and Vomiting Sodium Chloride (0.9 % Sodium Chloride Flush 3 Ml Syringe) 3 ml IVFLUSH QSHIFT [facility] Last Admin: 07/12/23 07:33 Dose: 3 ml Documented By: CLAIRE Labs 07/12/23 05:04 07/12/23 05:04 Labs: Laboratory Results - last 24 hr 07/11/23 07/11/23 07/12/23 16:52 18:12 05:04 MCV 89.4 90.9 MCH 31.7 30.9 MCHC 35.5 34.0 RDW 12.4 12.5 Plt Count 251 271 MPV 9.3 L 10.0 Immature Gran % (Auto) 0.3 0.6 H Neut % (Auto) 65.0 89.6 H Lymph % (Auto) 18.5 L 8.9 L [place] % (Auto) 5.0 0.7 L Eos % (Auto) 10.6 H 0.0 Baso % (Auto) 0.6 0.2 Lymph # (Auto) 2.0 1.0 L [place] # (Auto) 0.5 0.1 Eos # (Auto) 1.1 H 0.0 Baso # (Auto) 0.1 0.0 Abs Immat Gran (auto) 0.03 0.07 H Absolute Neuts (auto) 6.9 9.9 H Absolute Nucleated RBC 0.000 0.000 Nucleated RBC % (auto) 0.0 0.0 VBG pH 7.37 VBG pCO2 34 VBG pO2 43 VBG HCO3 20 L VBG O2 Saturation 69.0 VBG Base Excess -4.4 Anion Gap 15 19 Estim Creat Clear Calc 99.0 101.0 Estimated GFR > 60 > 60 Random Glucose 133 H 145 H Calcium 9.3 9.8 Magnesium 2.4 Total Bilirubin 0.6 0.4 AST 18 14 ALT 24 23 Alkaline Phosphatase 98 90 Troponin I High Sens < 2.7 Total Protein 7.4 7.1 Albumin 4.1 4.0 Influenza Type A (PCR) NEGATIVE Influenza Type B (PCR) NEGATIVE RSV RNA Qual (PCR) NEGATIVE SARS-CoV-2 RNA (RT-PCR) NEGATIVE Assessment and Plan (1) Acute hypoxemic respiratory failure: Status: Acute (2) Asthma exacerbation: Status: Acute Plan 52-year-old male with known history of asthma in the absence of tobacco or any other inhaled substance presents with worsening shortness of breath over 2-3 days that has failed outpatient therapies. He does recount a productive cough of green sputum Acute hypoxic respiratory failure secondary to mild intermittent asthma exacerbation solumedrol, scheduled duonebs doxycycline 100 mg IV q.12 hours titrate O2 to maintain sats greater than equal to 92% DVT prophylaxis with Lovenox Attending Dr. Bergman Full code Continue inpatient stay for pulse dose methylprednisolone and doxycycline to treat asthma exacerbation that has failed outpatient therapies. This can not be achieved a lesser acute setting Quality Stroke Does the patient have a stroke diagnosis?: No VTE Prior VTE?: No VTE Risk Level:: Medical - moderate - high VTE Device Contraindication: Treatment Not Indicated VTE Drug Contraindication: N/A - Med Ordered
[2023-07-12] MEDS: Ibuprofen 400 MG TABLET PO ×2 (12:10→20:19)
[2023-07-12] MEDS: Enoxaparin Sodium 40 MG/0.4 ML SYRINGE SUBCUT (20:09)
--- NOTE | 2023-07-12 23:15 | PC.RT ---
pt placed on sleep study RN aware
[2023-07-13] VITALS (9 sets, daily range): BP systolic 135–145; BP diastolic 68–75; PULSE 82–99; RESP 16–20; TEMP 36.3–36.8; O2SAT 89–96
[2023-07-13] MEDS: 0.9 % Sodium Chloride Flush 3 ML SYRINGE IVFLUSH ×4 (01:03→23:54)
[2023-07-13] MEDS: methylPREDNISolone Sod Succ 125 MG/2 ML VIAL 60 MG IVPUSH ×5 (01:03→23:54)
[2023-07-13] MEDS: Albuterol/Iprat 2.5/0.5MG 3 ML AMPUL.NEB INHALE ×4 (07:56→20:00)
[2023-07-13] MEDS: Doxycycline Hyclate 100 MG in 0.9 % Sodium Chloride 250 ML 166.66 MG IV ×2 (08:20→22:23)
[2023-07-13] MEDS: Ibuprofen 400 MG TABLET PO ×3 (10:40→23:52)
--- NOTE | 2023-07-13 12:00 | PM.DS ---
DS: Providers Provider Date of Service: 07/13/23 <Calli Osborn NP - Last Filed: 07/13/23 12:21> 07/14/23 <BERNIE Garcia - Last Filed: 07/14/23 09:53> Date of admission: 07/11/23 18:20 <Calli Osborn NP - Last Filed: 07/13/23 12:21> Primary care physician: Kylee Garcia MD <Calli Osborn NP - Last Filed: 07/13/23 12:21> Attending physician on discharge: Jordon Bergman <BERNIE Garcia - Last Filed: 07/14/23 09:53> Discharging clinician: Mackenzie Mueller <BERNIE Garcia - Last Filed: 07/14/23 09:53> DS: Diagnosis Discharge Diagnosis (1) Acute hypoxemic respiratory failure: Status: Acute <Calli Osborn NP - Last Filed: 07/13/23 12:21> (2) Asthma exacerbation: Status: Acute <Calli Osborn NP - Last Filed: 07/13/23 12:21> DS: Summary Hospital Course Hospital Course: History and physical as per admitting provider. 52-year-old gentleman with essentially no past medical history save asthma presents with 2-3 days of worsening shortness of breath. He states his last acute exacerbation was proximally 10 years remote. He states his inhalers were not helpful to relieve his symptoms. Upon arrival to emergency room patient required 6 L of O2 to maintain sats greater than equal to 90%. He received DuoNebs/magnesium with fair results. 52-year-old man treated for acute hypoxic respiratory failure secondary to mild intermittent asthma exacerbation. Treated with IV Solu-Medrol, scheduled DuoNebs, IV doxycycline. Chest x-ray showed no evidence of pneumonia, COVID, flu, RSV negative. He was treated with oxygen and titrated off. Plan is for patient to be discharged on new prescription for Breo. He can continue using his DuoNeb machine versus albuterol pump inhaler. He will complete a total of 5 days of doxycycline so 2 more days outpatient. And he will be on a short course prednisone taper. Recommend outpatient follow up with PCP and consideration of formal PFTs. Breathing has improved significantly and he is able to ambulate without shortness of breath. Currently saturating in the mid 90s room air. <Calli Osborn NP - Last Filed: 07/13/23 12:21> Time Attestation Discharge Coordination Time (in mins): 31 <Jordon Bergman MD - Last Filed: 07/14/23 09:23> Quality: Safe Use of Opioids Does Pt have an Active Cancer Diagnosis on the Problem List?: No <Jordon Bergman MD - Last Filed: 07/14/23 09:23> Quality: Stroke Does the patient have a stroke diagnosis?: No <Jordon Bergman MD - Last Filed: 07/14/23 09:23> Physical Exam Vital Signs: Vital Signs: Last Vital Signs Temp 98.3 F 07/13/23 08:00 Pulse 94 07/13/23 08:00 Resp 18 07/13/23 08:00 BP 139/68 07/13/23 08:00 Pulse Ox 96 07/13/23 08:00 O2 Del Method Room Air 07/13/23 08:00 O2 Flow Rate 3 07/12/23 20:21 Oxygen Flow Rate 4 07/11/23 15:51 BMI result Body Mass Index 38.1 <Calli Osborn NP - Last Filed: 07/13/23 12:21> Appearing in no acute distress head is normocephalic atraumatic eyes pupils are PERRLA sclera is anicteric mouth throat mucous membranes are intact and moist neck is supple no lymphadenopathy, no JVD noted lung sounds are clear to auscultation heart regular rate rhythm, clear S1, S2 positive bowel sounds, abdomen is soft, nontender neuro patient is alert x3, no focal deficits <Calli Osborn NP - Last Filed: 07/13/23 12:21> Const: General: cooperative, no acute distress, alert and awake <BERNIE Garcia - Last Filed: 07/14/23 09:53> Nutritional Appearance: overweight <BERNIE Garcia - Last Filed: 07/14/23 09:53> Orientation/consciousness: patient oriented x3 <BERNIE Garcia - Last Filed: 07/14/23 09:53> Resp: Effort & Inspection: normal respiratory effort, able to speak in complete sentences, no respiratory distress and no use of accessory muscles <BERNIE Garcia - Last Filed: 07/14/23 09:53> Cardio: Rate: regular rate <BERNIE Garcia - Last Filed: 07/14/23 09:53> GI: Inspection: No distended <BERNIE Garcia - Last Filed: 07/14/23 09:53> Palpation (GI): Soft to palpation and nontender <BERNIE Garcia - Last Filed: 07/14/23 09:53> Neuro: General: patient oriented x3, moves all extremities and CN's II-XI intact bilaterally <BERNIE Garcia - Last Filed: 07/14/23 09:53> Discharge Plan Discharge Anticipated Discharge Date/Time: 07/14/23 09:53 <Calli Osborn NP - Last Filed: 07/13/23 12:21> Patient Disposition: Home, Self-Care <Calli Osborn NP - Last Filed: 07/13/23 12:21> Discharge Diagnosis: Acute hypoxemic respiratory failure Asthma exacerbation <Calli Osborn NP - Last Filed: 07/13/23 12:21> Acute hypoxemic respiratory failure Asthma exacerbation <Jordon Bergman MD - Last Filed: 07/14/23 09:23> Acute hypoxemic respiratory failure Asthma exacerbation <BERNIE Garcia - Last Filed: 07/14/23 09:53> Referrals: Kylee Guerra MD [Primary Care Provider] - 1 Week <Calli Osborn NP - Last Filed: 07/13/23 12:21> Discharge Medications: New doxycycline hyclate 100 mg tablet 100 mg PO BID Qty: 4 0RF albuterol sulfate 2.5 mg/0.5 mL solution for nebulization 2.5 mg inhalation QID PRN (Reason: shortness of breath or wheezing) Qty: 30 0RF albuterol sulfate 90 mcg/actuation aerosol powdr breath activated 2 inh inhalation Q6H PRN (Reason: shortness of breath or wheezing) Qty: 1 0RF Breo Ellipta 50-25 mcg/dose blister with device 1 inh inhalation DAILY Qty: 60 0RF prednisone 10 mg tablet See Taper PO DIRECTED Qty: 20 0RF Taper: Prednisone 40 mg daily for 2 Days and 0 Hour 30 mg daily for 2 Days and 0 Hour 20 mg daily for 2 Days and 0 Hour 10 mg daily for 2 Days and 0 Hour Rx Instructions: see taper instructions Mucus DM 30-600 mg Tablet Extended Release 12 Hr 1 tab PO BID PRN (Reason: cough) Qty: 10 0RF Continued fexofenadine 180 mg tablet 180 mg PO DAILY clonazepam 0.5 mg tablet 0.5 mg PO DAILY PRN (Reason: anxiety) ibuprofen [Advil] 200 mg Tablet 400 mg PO Q6H PRN (Reason: Pain) Discontinued albuterol sulfate 2.5 mg /3 mL (0.083 %) solution for nebulization 2.5 mg inhalation Q4H PRN (Reason: Shortness Of Breath Or Wheezing) fluticasone propionate 50 mcg/actuation spray,suspension 1 - 2 spray intranasal QAM Pulmicort Flexhaler 180 mcg/actuation aerosol powdr breath activated 2 inh INHALATION BID Combivent Respimat 20-100 mcg/actuation mist 1 puff inhalation QID <Calli Osborn NP - Last Filed: 07/13/23 12:21> Discharge Orders: Discharge Order (Routine); Ordered 07/14/23 Ordered By: Mackenzie Mueller <Calli Osborn NP - Last Filed: 07/13/23 12:21> Diet: Advance to usual diet <Calli Osborn NP - Last Filed: 07/13/23 12:21> Advance to usual diet <Jordon Bergman MD - Last Filed: 07/14/23 09:23> Advance to usual diet <BERNIE Garcia - Last Filed: 07/14/23 09:53> Activity on Discharge: As tolerated <Calli Osborn NP - Last Filed: 07/13/23 12:21> As tolerated <Jordon Bergman MD - Last Filed: 07/14/23 09:23> As tolerated <BERNIE Garcia - Last Filed: 07/14/23 09:53> Stand Alone Forms: Patient Portal Discharge page <Calli Osborn NP - Last Filed: 07/13/23 12:21> Print Language: Andorran <Calli Osborn NP - Last Filed: 07/13/23 12:21> Care Plan Goals: You have been started on new medications for your asthma, please take as prescribed <Calli Osborn NP - Last Filed: 07/13/23 12:21> Health Concerns: Acute hypoxic respiratory failure Asthma exacerbation <Calli Osborn NP - Last Filed: 07/13/23 12:21> Plan of Treatment: Call to schedule a follow up appointment with your PCP for close outpatint follow up can consider formal PFTs if not previously done Take all medications as prescribed <Calli Osborn NP - Last Filed: 07/13/23 12:21> Assessment: See discharge summary <Calli Osborn NP - Last Filed: 07/13/23 12:21>
--- NOTE | 2023-07-13 12:21 | P.PNIM_ITS ---
Subjective Subjective Date of Service: 07/13/23 Review of Systems Follow up asthma exacerbation feeling better still with cough and some mild sob with exertion Physical Exam 2 Vital Signs: Vital Signs: Last Vital Signs Temp 98.3 F 07/13/23 08:00 Pulse 94 07/13/23 12:14 Resp 18 07/13/23 12:14 BP 139/68 07/13/23 08:00 Pulse Ox 96 07/13/23 08:00 O2 Del Method Room Air 07/13/23 08:00 O2 Flow Rate 3 07/12/23 20:21 Oxygen Flow Rate 4 07/11/23 15:51 BMI result Body Mass Index 38.1 Appearing in no acute distress lung sounds exp wheezing heart regular rate rhythm, clear S1, S2 positive bowel sounds, abdomen is soft, nontender neuro patient is alert x3, no focal deficits Objective Data Active Medications Acetaminophen (Acetaminophen 325 Mg Tablet) 650 mg PO Q6H PRN PRN Reason: Pain, Mild (Pain Scale 1-3) Al Hydroxide/Mg Hydroxide (Magnesium Hydrox/Alum Hydrox 30 Ml Oral.Susp) 30 ml PO Q4H PRN PRN Reason: Heartburn/Nausea Albuterol/Ipratropium (Albuterol/Iprat 2.5/0.5mg 3 Ml Ampul.Neb) 3 ml INHALE RQ4H [facility] Last Admin: 07/13/23 12:14 Dose: 3 ml Documented By: DEISI Enoxaparin Sodium (Enoxaparin Sodium 40 Mg/0.4 Ml Syringe) 40 mg SUBCUT Q24H [facility] Last Admin: 07/12/23 20:09 Dose: 40 mg Documented By: ALIX Doxycycline Hyclate 100 mg/ (Sodium Chloride) 250 mls @ 166.67 mls/hr IV Q12H [facility] Last Infusion: 07/13/23 10:01 Dose: Infused Documented By: PHUC Ibuprofen (Ibuprofen 400 Mg Tablet) 400 mg PO Q6H PRN PRN Reason: Headache Last Admin: 07/13/23 10:40 Dose: 400 mg Documented By: PHUC Methylprednisolone Sodium Succinate (Methylprednisolone Sod Succ 125 Mg/2 Ml Vial) 60 mg IVPUSH Q6H [facility] Last Admin: 07/13/23 06:08 Dose: 60 mg Documented By: KATIE Ondansetron HCl (Ondansetron Hcl 4 Mg/2 Ml Vial) 4 mg IVPUSH Q8H PRN PRN Reason: Nausea and Vomiting Sodium Chloride (0.9 % Sodium Chloride Flush 3 Ml Syringe) 3 ml IVFLUSH QSHIFT [facility] Last Admin: 07/13/23 08:20 Dose: 3 ml Documented By: PHUC Tan 07/12/23 05:04 07/12/23 05:04 Assessment and Plan (1) Acute hypoxemic respiratory failure: Status: Acute (2) Asthma exacerbation: Status: Acute Plan 52-year-old male with known history of asthma in the absence of tobacco or any other inhaled substance presents with worsening shortness of breath over 2-3 days that has failed outpatient therapies. He does recount a productive cough of green sputum Acute hypoxic respiratory failure secondary to mild intermittent asthma exacerbation still with some sob with exertion continue solumedrol, scheduled duonebs continue doxycycline 100 mg IV q.12 hours titrate O2 to maintain sats greater than equal to 92% DVT prophylaxis with Lovenox Attending Dr. Bergman Full code Continue inpatient stay for pulse dose methylprednisolone and doxycycline to treat asthma exacerbation that has failed outpatient therapies. This can not be achieved a lesser acute setting Quality Stroke Does the patient have a stroke diagnosis?: No VTE Prior VTE?: No VTE Risk Level:: Medical - moderate - high VTE Device Contraindication: Treatment Not Indicated VTE Drug Contraindication: N/A - Med Ordered
[2023-07-13] MEDS: Tetrahydrozoline HCl 0.05% Oph 15 ML DRPBTL 1 DROP EYE-BOTH (12:42)
--- NOTE | 2023-07-13 14:01 | MHC.CM.PN ---
EMR REVIEWED. PATIENT NOT MEDICALLY CLEARED FOR DC AT THIS TIME. CM WILL CONTINUE TO FOLLOW.
--- NOTE | 2023-07-13 15:32 | P.CDIM_ITS ---
PROVIDER RESPONSE TEXT: To clarify, the appropriate diagnosis supported by the clinical indicators: Obesity Due to excess calories QUERY TEXT: PHYSICIAN'S DOCUMENTATION REQUEST Date of Query: 07/13/2023 07:24 AM EDT Patient Name: Tc Malone Admit Date: 07/11/2023 Dear Calli Osborn, A review of the medical record indicates additional documentation may be needed. Please review below and update the documentation accordingly. Clinical Indicators: Height: 5ft 7in Weight: 110.3kg BMI: 38.1 If possible, please provide an associated diagnosis related to the abnormal BMI, such as: Overweight Obesity Due to excess calories Obesity Due to other cause Specify the other cause Severe or Morbid Obesity Other (explain) Clinically unable to determine (explain) Thank you, Agnes Hancock, CCS, CDIS Use of terms such as suspected, likely, concern for, or probable (associated with a specific diagnosi s that is being evaluated, monitored, or treated as if it exists) are acceptable and can be coded in the inpatient se tting, when documented at the time of discharge. Please use your independent medical judgment in providing your response. THIS QUERY IS PART OF THE PERMANENT MEDICAL RECORD
[2023-07-13] MEDS: Enoxaparin Sodium 40 MG/0.4 ML SYRINGE SUBCUT (22:23)
[2023-07-13] MEDS: Sodium Chloride 0.65 % Nasal 44 ML SPRBTL 1 SPRAY NOSTRIL-B (22:33)
[2023-07-14 00:06] VITALS: PULSE 90; RESP 16; O2SAT 92
[2023-07-14] MEDS: Albuterol/Iprat 2.5/0.5MG 3 ML AMPUL.NEB INHALE ×2 (00:06→07:48)
[2023-07-14 03:29] VITALS: BP 124/58; PULSE 92; RESP 20; TEMP 36.2; O2SAT 92
[2023-07-14] MEDS: methylPREDNISolone Sod Succ 125 MG/2 ML VIAL 60 MG IVPUSH ×2 (05:59→07:43)
[2023-07-14 07:43] VITALS: BP 131/72; PULSE 82; RESP 16; TEMP 36.1; O2SAT 94
[2023-07-14] MEDS: Doxycycline Hyclate 100 MG in 0.9 % Sodium Chloride 250 ML 166.67 MG IV (07:44)
[2023-07-14] MEDS: 0.9 % Sodium Chloride Flush 3 ML SYRINGE IVFLUSH (07:44)
[2023-07-14] MEDS: Ibuprofen 400 MG TABLET PO ×2 (07:53→13:47)
[2023-07-14] MEDS: guaiFENesin DM 600/30 1 TAB TAB.ER.12H PO (09:31)
--- NOTE | 2023-07-14 10:34 | MHC.CM.PN ---
EMR reviewed. Per MD rounds patient is medically cleared for dc home self care. He believes his S.O. will provide transportation home. He is aware we can schedule shuttle if needed. RN aware.
--- NOTE | 2023-07-14 13:55 | MHC.CM.PN ---
Patient was not able to arrange for a ride home. He is set up to transport to home via [facility] shuttle. occupational therapy department chair is 2pm, in the front loby. Transportation
== END 2023-07-14 13:55 | disposition home or self-care (01) | DRG 141 ==
LOC: HO.ED 17:11 → HO.EDOVER 18:48 → HO.S3 07-12 07:20
PROVIDERS: Physician Assistant Medical; Admitting Provider Hospitalist; Emergency Provider Student in an Organized Health Care Education/Training Program; PCP Student in an Organized Health Care Education/Training Program; Visit Provider Physician Assistant Medical
DX: J45.21 Mild intermittent asthma with (acute) exacerbation (principal); J96.01 Acute respiratory failure with hypoxia; E66.09 Other obesity due to excess calories; Z20.822 Contact with and (suspected) exposure to COVID-19; Z68.38 Body mass index [BMI] 38.0-38.9, adult; Z71.3 Dietary counseling and surveillance; Z79.51 Long term (current) use of inhaled steroids; Z79.899 Other long term (current) drug therapy
CPT/HCPCS: 0241U; 36415; 71045; 80053; 82803; 83735; 84484; 85025; 93005; 94640; 99285; J1650; J2919

== ENCOUNTER → 2023-07-11 15:38 | Outpatient (BNV) | payer MEDICAID, SELFPAY | PROVIDERS: Admitting Provider Hospitalist; Emergency Provider Student in an Organized Health Care Education/Training Program; PCP Student in an Organized Health Care Education/Training Program; Visit Provider Internal Medicine Cardiovascular Disease | DX: R00.0 Tachycardia, unspecified (principal) | CPT/HCPCS: 93010 ==

== ENCOUNTER → 2023-07-11 16:08 | Outpatient (BNV) | payer MEDICAID, SELFPAY | PROVIDERS: Emergency Provider Student in an Organized Health Care Education/Training Program; Visit Provider Hospitalist | DX: J96.01 Acute respiratory failure with hypoxia (principal); J45.21 Mild intermittent asthma with (acute) exacerbation | CPT/HCPCS: 99223; 99232; 99239 ==

== ENCOUNTER 2023-08-19 13:32 | Outpatient (REF) | payer MEDICAID, SELFPAY ==
--- NOTE | 2023-08-19 13:46 | EMG_ITS ---
Chief complaint: Chronic bilateral hand numbness Reason for referral: Evaluate for Carpal Tunnel Syndrome Referred by: Dr. Nam Carlson Procedure done: Bilateral upper extremities NCS/EMG Precautions and/or limitations: Previous cervical ACDF The limb temperature was monitored continuously and remained between 32-36 degrees C during the performance of the NCS. Nerve Conduction Studies Anti Sensory Summary Table ?Stim Site NR Onset (ms) Norm Onset (ms) Peak (ms) Norm Peak (ms) O-P Amp (?V) Norm O-P Amp Site1 Site2 Delta-0 (ms) Dist (cm) Elver (m/s) Norm Elver (m/s) Left Median Anti Sensory (2nd Digit) Wrist ? 3.2 4.0 <3.6 19.9 >10 Wrist 2nd Digit 3.2 14.0 44 Right Median Anti Sensory (2nd Digit) Wrist ? 3.1 3.8 <3.6 27.7 >10 Wrist 2nd Digit 3.1 14.0 45 Right Radial Anti Sensory (Thumb) Forearm ? 2.0 2.5 <3.1 22.2 Forearm Thumb 2.0 0.0 Left Ulnar Anti Sensory (5th Digit) Wrist ? 2.1 2.6 <3.7 13.6 >15.0 Wrist 5th Digit 2.1 14.0 67 Right Ulnar Anti Sensory (5th Digit) Wrist ? 2.2 2.8 <3.7 15.0 >15.0 Wrist 5th Digit 2.2 14.0 64 Motor Summary Table ?Stim Site NR Onset (ms) Norm Onset (ms) O-P Amp (mV) Norm O-P Amp iAmp (mV) Amp (1st) (%) Site1 Site2 Delta-0 (ms) Dist (cm) Elver (m/s) Norm Elver (m/s) Left Median Motor (Abd Poll Brev) Wrist ? 4.2 <3.9 10.2 >4.5 12.7 100.0 Elbow Wrist 4.0 21.0 53 >45 Elbow ? 8.2 10.1 12.4 99.0 Right Median Motor (Abd Poll Brev) Wrist ? 4.2 <3.9 11.0 >4.5 13.4 100.0 Elbow Wrist 3.7 18.5 50 >45 Elbow ? 7.9 10.2 12.8 92.7 Left Ulnar Motor (Abd Dig Minimi) Wrist ? 2.8 <3.0 8.5 >5 9.8 100.0 B Elbow Wrist 3.2 19.0 59 >45 B Elbow ? 6.0 8.0 9.3 94.1 A Elbow B Elbow 1.7 10.0 59 >45 A Elbow ? 7.7 7.8 9.0 91.8 Right Ulnar Motor (Abd Dig Minimi) Wrist ? 2.9 <3.0 10.7 >5 12.7 100.0 B Elbow Wrist 3.4 21.0 62 >45 B Elbow ? 6.3 10.3 12.4 96.3 A Elbow B Elbow 1.5 10.0 67 >45 A Elbow ? 7.8 9.9 11.9 92.5 EMG ?Side Muscle Nerve Root Ins Act Fibs Psw Amp Dur Poly Recrt Int Pat Comment Right 1stDorInt Ulnar C8-T1 Nml Nml Nml Nml Nml 0 Nml Complete Right FlexCarRad Median C6-7 Nml Nml Nml Nml Nml 0 Nml Complete Right Biceps Musculocut C5-6 Nml Nml Nml Nml Nml 0 Nml Complete Right Triceps Radial C6-7-8 Nml Nml Nml Nml Nml 0 Nml Complete Right Deltoid Axillary C5-6 Nml Nml Nml Nml Nml 0 Nml Complete Left 1stDorInt Ulnar C8-T1 Nml Nml Nml Nml Nml 0 Nml Complete Left FlexCarRad Median C6-7 Nml Nml Nml Nml Nml 0 Nml Complete Left Biceps Musculocut C5-6 Nml Nml Nml Nml Nml 0 Nml Complete Left Triceps Radial C6-7-8 Nml Nml Nml Nml Nml 0 Nml Complete Left Deltoid Axillary C5-6 Nml Nml Nml Nml Nml 0 Nml Complete FINDINGS: Bilateral median motor nerves showed prolonged distal latency, normal amplitude and normal conduction velocity. Bilateral median sensory nerves showed prolonged peak latency. All other nerves tested were within normal. Concentric needle EMG was performed in selected muscles of the bilateral upper extremities. Study did not reveal signs of electric abnormalities as shown in the table above. IMPRESSION: 1. This is an abnormal study. 2. There is electrodiagnostic evidence for bilateral moderate-severe median neuropathy at the wrist, consistent with carpal tunnel syndrome. 3. There is no electrodiagnostic evidence for ulnar neuropathy, brachial plexopathy, or cervical radiculopathy. Thank you for your kind referral. Lainey Keene MD, IRA Board Certified, [place] [employer] and [employer] (ABPMR) Board Certified, [place] Board of Electrodiagnostic Medicine (ABEM) CODIN [id number] x 2 MTDD
== END 2023-08-19 13:33 | disposition home or self-care (01) ==
LOC: HO.NEURO 13:32
PROVIDERS: PCP Student in an Organized Health Care Education/Training Program; Visit Provider Orthopaedic Surgery Orthopaedic Surgery of the Spine
DX: G56.03 Carpal tunnel syndrome, bilateral upper limbs (principal)
CPT/HCPCS: 95886; 95911

== ENCOUNTER → 2023-08-19 13:46 | Outpatient (BNV) | payer MEDICAID, SELFPAY | PROVIDERS: PCP Student in an Organized Health Care Education/Training Program; Visit Provider Physical Medicine & Rehabilitation | DX: G56.03 Carpal tunnel syndrome, bilateral upper limbs (principal) | CPT/HCPCS: 95886; 95911 ==

== ENCOUNTER 2023-09-14 11:40 | Outpatient (REF) | payer MEDICAID, SELFPAY ==
[2023-09-17 01:48] LABS: TS Negative Control Passed; TS Panel A 2; TS Panel B 0; TS Positive Control Passed; TSpotTB Negative (Negative)
[2023-09-18 15:14] LABS: Testosterone, Total 236 ng/dL (250-1100)
== END 2023-09-14 11:41 | disposition home or self-care (01) ==
LOC: HO.CHCLDS 11:40
PROVIDERS: Visit Provider Internal Medicine
DX: L40.8 Other psoriasis (principal); B35.1 Tinea unguium; N52.9 Male erectile dysfunction, unspecified
CPT/HCPCS: 36415; 84403; 86481

== ENCOUNTER 2023-09-27 10:30 | Outpatient (REF) | payer MEDICAID, SELFPAY ==
[2023-10-03 00:43] LABS: Testosterone, Total 281 ng/dL (250-1100)
== END 2023-09-27 10:31 | disposition home or self-care (01) ==
LOC: HO.10HDL 10:30
PROVIDERS: Visit Provider Internal Medicine
DX: N52.9 Male erectile dysfunction, unspecified (principal)
CPT/HCPCS: 36415; 84403

== ENCOUNTER → 2023-10-13 20:30 | Outpatient (REF) | payer MEDICAID, SELFPAY | LOC: HO.SL 20:30 | PROVIDERS: PCP Internal Medicine; Visit Provider Internal Medicine | DX: Z13.89 Encounter for screening for other disorder (principal) ==

== ENCOUNTER 2024-06-09 16:42 | Inpatient (IN) | payer MEDICAID, SELFPAY ==
[2024-06-09] VITALS (9 sets, daily range): BP systolic 160; BP diastolic 84; PULSE 75–86; RESP 18–22; TEMP 36.9; O2SAT 87–95; BMI 34.5
--- NOTE | 2024-06-09 | ECG_ITS ---
Test Reason : SOB Blood Pressure : */* mmHG Vent. Rate : 89 BPM Atrial Rate : 89 BPM P-R Int : 144 ms QRS Dur : 90 ms QT Int : 342 ms P-R-T Axes : 74 26 54 degrees QTcB Int : 416 ms Normal sinus rhythm Nonspecific ST and T wave abnormality Borderline ECG When compared with ECG of 11-Jul-2023 16:31, QT has shortened Referred By: Generic ED Physician Electronically Signed By: JOYCE SNIDER
--- NOTE | ~2024-06-09 | XR_ITS ---
CLINICAL HISTORY: SOB 1 view chest x-ray Comparison: CR/SR - XR CHEST 1V - 07/11/23 15:54 EDT CR/SR - XR CHEST 2V - 01/25/23 13:21 EST Findings: No consolidation or effusion. Heart size is normal. No acute fracture. IMPRESSION: 1. No acute findings. This document has been electronically signed by: Karen Gonzalez MD on 06/09/2024 17:58:45
[2024-06-09] MEDS: Albuterol Sulfate 5 MG, Albuterol/Iprat 2.5/0.5MG 3 ML 3 ML INHALE (16:55)
--- NOTE | 2024-06-09 17:07 | ED_ITS ---
HPI - URI/Sore Throat General Chief Complaint: Upper Respiratory Symptoms Stated Complaint: flu like symtoms Time Seen by Provider: 06/09/24 17:07 Source: patient Mode of arrival: ambulatory Limitations: no limitations History of Present Illness ED Provider: HPI Narrative: Patient's history of asthma sleep apnea not using CPAP comes here for cold symptoms for last 2 days with difficulty breathing was not urgent care center desaturated to 88% at room air been wheezing and congested low-grade fever patient's stepdaughter was positive for mono last week patient has been coughing with mucoid phlegm. At urgent care center patient was positive for influenza A Related Data Home Medications ?Medication ?Instructions ?Recorded ?Confirmed clonazepam 0.5 mg tablet 0.5 mg PO DAILY PRN anxiety 07/11/23 06/09/24 fexofenadine 180 mg tablet 180 mg PO DAILY 07/11/23 07/11/23 ibuprofen 200 mg tablet (Advil) 400 mg PO Q6H PRN Pain 07/11/23 07/11/23 Previous Rx's ?Medication ?Instructions ?Recorded albuterol sulfate 2.5 mg/0.5 mL 2.5 mg (0.5 mL) inhalation QID PRN 07/13/23 solution for nebulization shortness of breath or wheezing #30 ea albuterol sulfate 90 mcg/actuation 2 inh inhalation Q6H PRN shortness 07/13/23 breath activated powder inhaler of breath or wheezing #1 ea doxycycline hyclate 100 mg tablet 100 mg PO BID #4 tabs 07/13/23 fluticasone furoate 50 1 inh inhalation DAILY #60 ea 07/13/23 mcg-vilanterol 25 mcg/dose inhalation powder (Breo Ellipta) prednisone 10 mg tablet See Taper PO DIRECTED #20 tabs 07/13/23 dextromethorphan-guaifenesin 30 1 tab PO BID PRN cough #10 tabs 07/14/23 mg-600 mg tablet extended [id number] hr (Mucus DM) Allergies Allergy/AdvReac Type Severity Reaction Status Date / Time oxycodone [From Percocet] Allergy whoozy Verified 06/09/24 16:59 Review of Systems 2 Review of Systems: Yes all other systems are reviewed and are negative PMFSH Past Medical History Medical History Asthma Seasonal allergies Neck pain Surgical History History of colonoscopy with polypectomy Hx of appendectomy Social History Social History Household Members: Significant Other Housing: Apartment Do you presently have visiting nurse or other home services: No Alcohol intake: current Patient Tobacco Use Status: Never used Tobacco Smoked in Last 30 Days: No Use of substances other than those prescribed or required for medical reasons: No Advance Directives: No Advance Directives Information Provided: No Do you have a plan to hurt others: No Plan service: No Physical Exam 2 Vital Signs: Vital Signs: Last Vital Signs Temp 98.5 F 06/09/24 16:57 Pulse 86 06/09/24 20:46 Resp 18 06/09/24 23:03 BP 160/84 H 06/09/24 16:57 Pulse Ox 95 06/09/24 23:03 O2 Del Method Oxymask 06/09/24 23:03 O2 Flow Rate 4 06/09/24 23:03 BMI result Body Mass Index 34.5 Appearance: Alert. Oriented X3. No acute distress. Eyes: no pallor or ENT: Pharynx normal. Oral Mucosa moist Neck: Normal inspection. Neck supple. CVS: Normal heart rate and rhythm. Pulses normal. Respiratory: mild respiratory distress. Equal air entry bilateral, bilateral wheeze Abdomen: Soft and nontender. Bowel sounds are present, no mass palpable, no CVA tenderness Skin: Skin warm and dry. Normal skin color. Normal skin turgor. Extremities: No lower extremity edema. No calf tenderness Neuro: Oriented X 3. No motor deficit. Medications Administered Generic Name Dose Route Start Last Admin Trade Name Freq PRN Reason Stop Dose Admin Albuterol/Ipratropium 3 ml 06/09/24 20:00 06/09/24 20:46 Albuterol/Iprat 2.5/0.5mg 3 Ml Ampul.Neb INHALE 3 ml RQ4H WHILE AWAKE YVONNE Administration Benzonatate 100 mg 06/09/24 19:54 06/09/24 21:03 Benzonatate 100 Mg Capsule PO 100 mg TID PRN Administration Cough Enoxaparin Sodium 40 mg 06/09/24 20:00 06/09/24 21:03 Enoxaparin Sodium 40 Mg/0.4 Ml Syringe SUBCUT 40 mg Q24H YVONNE Administration Discontinued Medications Generic Name Dose Route Start Last Admin Trade Name [place] PRN Reason Stop Dose Admin Acetaminophen 975 mg 06/09/24 19:49 06/09/24 19:58 Acetaminophen 325 Mg Tablet PO 06/09/24 19:50 975 mg ONCE ONE Administration Albuterol Sulfate 5 mg 06/09/24 18:48 06/09/24 19:09 Albuterol Sulfate (0.083%) 2.5 Mg/3 Ml Vial.Neb INHALE 06/09/24 18:49 5 mg ONCE ONE Administration Clonazepam 0.5 mg 06/09/24 20:10 06/09/24 21:03 Clonazepam 0.5 Mg Tablet PO 06/09/24 20:11 0.5 mg ONCE ONE Administration Albuterol Sulfate 5 mg/ 0 mg 06/09/24 16:54 06/09/24 16:55 Albuterol/Ipratropium 3 ml INHALE 06/09/24 16:55 7.5 each ONCE ONE Administration Sodium Chloride 1,000 mls @ 999 mls/hr 06/09/24 17:16 06/09/24 18:46 Ns IV 06/09/24 18:16 Infused .Q1H1M ONE Infusion Magnesium Sulfate 2 gm in 50 mls @ 150 mls/hr 06/09/24 17:16 06/09/24 18:46 Magnesium Sulfate/H2o IV 06/09/24 17:35 Infused ONCE ONE Infusion Methylprednisolone Sodium Succinate 125 mg 06/09/24 17:16 06/09/24 17:37 Methylprednisolone Sod Succ 125 Mg/2 Ml Vial IVPUSH 06/09/24 17:17 125 mg ONCE ONE Administration Oseltamivir Phosphate 75 mg 06/09/24 18:20 06/09/24 18:44 Oseltamivir Phosphate 75 Mg Capsule PO 06/09/24 18:21 75 mg ONCE ONE Administration Medical Decision Making Medical Decision Making [facility] Narrative: patient's asthma sleep apnea influenza a came for hypoxia saturating 88% room air improved after nebulizing treatments saturating now 93% at room air labs are stable chest x-ray negative will ambulate patient and give another treatment Patient's desaturating to 87% on ambulation will admit patient for supportive treatment as patient does not have any oxygen at home does not have any CPAP at home Differential Diagnosis Differential Diagnoses: The differential diagnosis associated with the presentation includes Admission/Observation Consideration of admission/observation: Escalation of care including admission/observation considered Consult Healthcare Provider Management of the patient was discussed with: Hospitalist Lab Data MDM Lab Attestation statement: I reviewed the patient's lab results. 06/09/24 17:24 06/09/24 17:24 Labs: Lab Results 06/09/24 Range/Units 17:24 WBC 5.8 (4.8-10.8) X10*3/uL RBC 4.75 (4.60-5.80) X10*6/uL Hgb 14.6 (14.0-18.0) g/dl Hct 42.7 (42.0-52.0) % MCV 89.9 (80.0-98.0) fL MCH 30.7 (27.0-33.0) pg MCHC 34.2 (31.0-36.0) g/dl RDW 12.2 (11.0-16.0) % Plt Count 227 (160-400) X10*3/uL MPV 9.1 L (9.4-12.4) fL Immature Gran % (Auto) 0.3 (0.0-0.4) % Neut % (Auto) 51.8 (45-73) % Lymph % (Auto) 23.7 (20-40) % [place] % (Auto) 11.4 H (2-11) % Eos % (Auto) 12.1 H (0-4) % Baso % (Auto) 0.7 (0-2) % Lymph # (Auto) 1.4 (1.2-4.9) X10*3/uL [place] # (Auto) 0.7 (0.1-1.2) X10*3/uL Eos # (Auto) 0.7 H (0.0-0.4) X10*3/uL Baso # (Auto) 0.0 (0.0-0.2) X10*3/uL Abs Immat Gran (auto) 0.02 (0.00-0.03) X10*3/uL Absolute Neuts (auto) 3.0 (2.0-8.3) x10*3/uL Absolute Nucleated RBC 0.000 (0.0-0.012) X10*3/uL Nucleated RBC % (auto) 0.0 (0.0-0.2) /100WBC Sodium 142 (135-145) mmol/L Potassium 3.5 (3.3-5.1) mmol/L Chloride 108 (96-108) mmol/L Carbon Dioxide 24 (22-29) mmol/L Anion Gap 14 (12-20) BUN 19 H (9-16) mg/dL Creatinine 1.03 (0.5-1.4) mg/dL Estim Creat Clear Calc 91.2 Estimated GFR > 60 Random Glucose 88 (60-115) mg/dL Lactic Acid 1.5 (0.5-2.0) mmol/L Calcium 9.2 D (8.4-10.2) mg/dL Influenza Type A (PCR) POSITIVE A (Negative) Influenza Type B (PCR) NEGATIVE (Negative) RSV RNA Qual (PCR) NEGATIVE (Negative) SARS-CoV-2 RNA (RT-PCR) NEGATIVE (Negative) Independent Interpretation I performed an independent interpretation of an: Plain X-Ray Radiology Impression Discussion of test interpretation with radiology: I have reviewed the radiologist's reading. Radiologist Impression: NAD Discharge Plan Discharge Clinical Impression: Influenza, Asthma, Hypoxia Patient Disposition: Admitted As Inpatient
--- OUTSIDE RECORDS SUMMARY | 2024-06-09 17:10 | XMS_ITS | Clinical Summary ---
Author Organization [employer] Address [address] [facility] [address] [place] [address] Care Team Providers Care Rim Technician Name Role Phone Carolee Shea MD Primary Care Provider [phone] Allergies Active Allergy Reactions Criticality Noted Date Comments Oxycodone-Acetaminophen Nausea Only 04/21/2022 Medications * This document contains information received from the source organization and may not represent a complete record from that organization. albuterol 108 (90 Base) MCG/ACT inhaler Inhale 2 puffs every 6 (six) hours if needed for wheezing. 18 g 2 023 Active econazole nitrate 1 % creamIndications :Onychodystrophy Apply topically in the morning. 85 g 1 023 Active Additional Information Patient not taking.Reported on 03/28/2023 lidocaine (Lidoderm) 5 % patch Apply 1 patch topically in the morning. Remove & discard patch within 12 hours or as directed by . 30 patch 2 024 Active Blood Pressure Monitor kit 1 Device in the morning. 1 kit 024 Active Dextromethorphan -guaiFENesin (Mucinex DM) 30-600 MG tablet sustained-releas e 12 hour Use 1 tab TID 28 tablet 024 Active Nebulizers misc 1 kit if needed in the morning, at noon, in the evening, and at bedtime (cough, wheezing, SOB). Use as directed. Given in walk in center 05/27/23, teaching provided Active albuterol (5 MG/ML) 0.5% nebulizer solution Take 2.5 mg by nebulization if needed in the morning, at noon, in the evening, and at bedtime for wheezing or shortness of breath. Active buPROPion SR (Wellbutrin SR) 150 MG 12 hr tablet TAKE 1 TABLET(150 MG) BY MOUTH TWICE DAILY. DO NOT CRUSH, CHEW, OR SPLIT 180 tablet Active Diclofenac Sodium 1 % gelIndications:L ateral epicondylitis of left elbow To apply to the affected area 3 times a day 100 g Active sildenafil (Viagra) 25 MG tabletIndication s:Erectile dysfunction, unspecified erectile dysfunction type Take 1 tablet (25 mg) by mouth if needed each day for erectile dysfunction. 10 tablet Active ustekinumab (Stelara) injectionIndicat ions:Inverse psoriasis,Psoria sis inject 90mg's SUBCUTANEOUSLY ON DAYS ONE AND 30 2 mL Active Breo Ellipta 50-25 MCG/INH aerosol powderIndication s:Mild intermittent asthma with exacerbation INHALE 1 PUFF BY MOUTH DAILY 60 each 3 024 Active fexofenadine (Allergy Relief) 180 MG tabletIndication s:Seasonal allergies TAKE 1 TABLET BY MOUTH EVERY DAY 90 tablet 025 Active ibuprofen 800 MG tabletIndication s:Lateral epicondylitis of left elbow TAKE 1 TABLET BY MOUTH 6 TO 8 HOURS NEEDED FOR PAIN 60 tablet 1 025 Active clonazePAM (KlonoPIN) 0.5 MG tablet TAKE 1 TABLET(0.5 MG) BY MOUTH EACH DAY FOR UP TO 5 DAYS NEEDED FOR ANXIETY 5 tablet 025 Active clonazePAM (KlonoPIN) 0.5 MG tablet TAKE 1 TABLET(0.5 MG) BY MOUTH EACH DAY FOR UP TO 5 DAYS NEEDED FOR ANXIETY 5 tablet 025 2024 Discontinued Active Problems Problem Noted Date Diagnosed Date Mild depression 05/16/2023 of parent 05/16/2023 Obesity (BMI 30-39.9) 03/29/2023 Erectile dysfunction 03/29/2023 H/O cervical spine surgery 12/30/202201/28 Generalized anxiety disorder 09/21/2022 Assessment & Plan (05/16/2023 10:55 AM EDT): Measurement Tools [Check all that apply and include scores] PHQ9, MIGUELITO-7 PHQ9: 8 GAD7: 14 STAGES OF CHANGE PREPARATION PLAN: (check all that apply) New/Additional Services needed SDOH Referral Behavioral Health Integration Plan Patient Self Plan Patient to utilize skills provided in intervention , Patient to reach out to [facility] team as needed, Patient to engage in OP therapy , and contact [facility]. Rule Out Diagnoses n/a Behavioral Health Diagnoses At this time Tc meets criteria for Visit Diagnoses: Problem List Items Addressed This Visit Generalized anxiety disorder Mild depression of parent Assessment & Plan (09/21/2022 2:47 PM EDT): PHQ9 is 11 and MIGUELITO 13 today,depression and anxiety ,denies SI Reports to be associated w accident and ongoing social problems as job,housing From previous PCP's chart: pt was on hydroxyzine and tried buspirone, SSRIs as sertraline,escitalopram and celexa but reports had SE and worsen symptoms. -will try duloxetine to start 30 mg daily x anxiety,depression and pain -if tolerating at next apt will increase to 60 mg a day -gave today #7 tab of clonazepam to take only if severe anxiety -referred today to psycho pharm clinic -I called as well and they will call pt to start care-pt could not wait for in office visit -pt already spoke w CARMINA and pt is already following w Tami greene. Hypertension 09/21/2022 Assessment & Plan (09/21/2022 2:55 PM EDT): -BP controlled off meds -will refer to ophthalmology at next apt -microalb -will do EKG at next apt x baseline Psoriasis 09/21/2022 Assessment & Plan (09/21/2022 2:38 PM EDT): Uncontrolled psoriasis -triamcinolone BID x 10 days -referred to optical design engineer today Health care maintenance 09/21/2022 Assessment & Plan (09/21/2022 2:45 PM EDT): -colonoscopy: states pt had apt x it and lost it but he will call to reschedule apt -vaccines: s/p tdap 2021, COVID never -advised x Bivalent dose but wants to hold x now, will offer zoster vaccine at next apt and p20 if actual has asthma -labs x annual exam today in fasting -pt agreed to have STI testing including HIV to have for baseline Onychomycosis 09/21/2022 Assessment & Plan (09/21/2022 2:45 PM EDT): Pt likely w onychomycosis -will check baseline LFTs and if stable will start at next apt on terbinafine x 3 mo Asthma 09/21/2022 Assessment & Plan (09/21/2022 2:46 PM EDT): Reports episodes Of dyspnea -never had PFT per pt -states albuterol helps w symptoms -referred today x PFT -px albuterol prn -will monitor at next visit Obstructive sleep apnea syndrome 04/21/2022 Assessment & Plan (09/21/2022 2:37 PM EDT): -Sleep study confirmed severe sleep apnea.per previous PCP records-- ---- requested record to [facility] -pt states he never had CPAP machine ---will refer at next apt to continue care w sleep med but pt wants to hold x now until completes his neck surgery Cervical radiculopathy 02/17/2021 Assessment & Plan (09/21/2022 2:50 PM EDT): From previous PCP records: Patient had a workl accident in 01/17/2020. He was seen at [facility] on 05/15/[address] Carlson with c/o neck and thoracic pain which started after a day of lifting heavy objects at work, MRI done 02/22/2020 showed bilateral C4-5, right C5-6 and bilateral C6-7 foraminal stenosis. He was referred to pain management and underwent facet injections and trigger point injections. He had PT done as well -Cervical MRI w/o contrast 04/2021: Mx level DDD and spondylosis , multilevel posterior disc osteophyte complexes and superimposed central disc protrusion with flattening of ventral dural sac W/o cord impingement . Mild stable stenosis C6- C7. Stable mx level uncovertebral and facet arthropathy with stable mx level bl neuro foraminal stenosis -already f w orthopedic and is planned to undergo neck surgery in 09/30/2022 - denies need x clearance -tylenol prn to avoid NSAIDS 5 days prior surgery -px lidoderm patches Resolved Problems Problem Noted Date Diagnosed Date Resolved Date Seasonal allergies 04/21/2022 3 Encounters Date Type Department Care Team Description 06/07/2024 Telephone [facility] MEDICINE [address] [place] [phone] Carolee Shea MD Lab Orders 06/06/2024 Telephone [facility] MED & PEDS [address] [place] [address] Carolee Shea MD Letter for School/Work 05/24/2024 Refill [facility] MEDICINE [address] [place] [phone] Carolee Shea MD 05/18/2024 Population Health Risk Score [facility] ([facility]) Department [address] [phone] Provider, Population Health Generic 04/27/2024 Refill [facility] MED & PEDS [address] [place] [address] Carolee Shea MD Lateral epicondylitis of left elbow 04/24/[address] [address] Carolee Shea MD Nurse Triage 04/22/2024 Refill [facility] MEDICINE [address] [place] [phone] Carolee Shea MD 04/04/2024 Orders Only [facility] MED & PEDS [address] [place] [address] Carolee Shea MD Onychomycosis (Primary Dx) 04/03/[address] [address] Carolee Shea MD Referral 03/16/2024 Refill [facility] MED & PEDS [address] [place] [address] Carolee Shea MD Seasonal allergies from Last 3 Months Immunizations Name Administration Dates Next Due Influenza Injectable Quadriv alant Preservative Free IIV4 MDCK 01/06/2017 Influenza injectable quadriv alent IIV4 with preservative 05/18/2019 Influenza injectable quadrivalent preservative f ree 03/28/2023,02/08/2018 Influenza, IIV3, injectable 11/05/2021 Influenza, seasonal, injectable, preservative fr ee 12/09/2015 Pneumococcal Conjugate PCV 20 03/28/2023 Tdap 12/02/2021,11/28/2013 Family History Medical History Relation Name Comments No Known Problems Father DM2 Mother Alzheimer's disease Mother's Sister niece : breast ca Other Relation Name Status Comments Father Mother Mother's Sister Other Social History Tobacco Use Types Packs/Day Years Used Date Smoking Tobacco: Never Smokeless Tobacco: Never Tobacco Cessation:Counseling Given: Not Answered Alcohol Use Standard Drinks/Week Comments Never 0 (1 standard drink = 0.6 oz pure alcohol) hx of moderate alcohol use stopped 3 y ago Depression Answer Date Recorded Patient Health Questionnaire-9 Score 8 05/13/2023 Patient Health Questionnaire-9 Score 8 05/13/2023 Last PHQ-9: Questionnaire Data Not on file 0 05/13/2023 Housing Stability Answer Date Recorded What is your housing situation today? I have hemal lock 07/19/[address] you li ve. Do you have problems with any of the following? None of the above 07/19/2023 Food Insecurity Answer Date Recorded Within the past 12 months, y ou worried that your food would run out before you got money to buy more: Never True 07/19/2023 Within the past 12 months,th e food you bought just didn't last and you didn't have enough money to get more: Never True Transportation Answer Date Recorded In the past 12 months, has l ack of transportation kept you from medical appts, meetings, work or from getting things needed for daily living? Yes, it has kept me from medical appointments or getting medications. 07/19/2023 Utilities Answer Date Recorded In the past 12 months, has t he electric, gas, oil or water company threatened to shut off services in your home? No 12/27/2022 Depression Answer Date Recorded Patient Health Questionnaire-2 Score 1 05/13/2023 Sex and Gender Information Value Date Recorded Sex Assigned at Male 01/04/2022 10:39 AM EDT Legal Sex Male 10:39 AM EDT Gender Identity Male 01/04/2022 10:39 AM EDT Sexual Orientation Choose not to disclose 2022 9:06 AM EDT Last Filed Vital Signs Vital Sign Reading Time Taken Comments Blood Pressure 145/89 12/09/2023 3:11 PM EDT Pulse 81 12/09/2023 3:11 PM EDT Temperature 36.8 ??C (98.3 ??F) 12/09/2023 3:11 PM ED T Respiratory Rate 20 12/09/2023 3:11 PM EDT Oxygen Saturation 95% 12/09/2023 3:11 PM EDT Inhaled Oxygen Concentration - - Weight 103 kg (228 lb) 12/09/2023 3:11 PM EDT Height 167.6 cm (5' 6 ) 12/09/2023 3:11 PM EDT Body Mass Index 36.8 12/09/2023 3:11 PM EDT Plan of Treatment Health Maintenance Due Date Last Done Comments CT Colonography 1968 Colonoscopy 1968 Colorectal Cancer Screening 1968 FIT DNA/Cologuard 1968 FIT 1968 FOBT 1968 Sigmoidoscopy 1968 Alcohol/Substance Use Screening 1980 Hepatitis B Vaccines (1 of 3 - 19+ 3-dose series) 08/08/1987 Zoster Vaccines (1 of 2) 2018 COVID-19 Vaccine ( - season) 2023 Influenza Vaccine (#1) 2023 , 11/05/2021, 05/18/2019, Additional history exists Depression Screening 05/12/2024 05/13/2023, 05/13/19 24 SDOH Screening 07/18/2024 07/19/2023 Tobacco Screening 12/08/2024 12/09/2023 Lipid Panel 11/20/2027 11/19/2022, 07/14/2021 DTaP/Tdap/Td Vaccines (3 - Td or Tdap) 12/03/2031 12/02/2021, 11/28/2013 RSV Patients and Patients Aged 60 years or older (1 - 1-dose 75+ series) 08/08/2043 HIV Screening Completed 11/19/2022, 07/14/2021 Hepatitis C Screening Completed 11/19/2022, 022 Pneumococcal Vaccine: 50+ Years Completed 03/28/2023 HIB Vaccines Aged Out No longer eligi ble based on patient's age to complete this topic HPV Vaccines Aged Out No longer eligi ble based on patient's age to complete this topic Hepatitis A Vaccines Aged Out No long er eligible based on patient's age to complete this topic IPV Vaccines Aged Out No longer eligi ble based on patient's age to complete this topic Meningococcal Vaccine Aged Out No franchesca oli eligible based on patient's age to complete this topic RSV under 20 months Aged Out No longe r eligible based on patient's age to complete this topic Rotavirus Vaccines Aged Out No longer eligible based on patient's age to complete this topic Procedures Procedure Name Priority Date/Time Associated Diagnosis Comments HEPATITIS C AB W/REFL TO HCV RNA, QN, PCR Routine 11/19/2022 11:11 AM EDT HIV ANTIBODY/ANTIGEN ([place] [facility]) Routine 11/19/2022 11:11 AM EDT LIPID PANEL, STANDARD Routine 11/19/2022 11:11 AM EDT from Last 3 Months or Most Recently Relevant to Health Maintenance Results * HIV Ab/Ag ([place] [facility]) (11/19/2022 11:11 AM EDT) Pathologist [facility] HIV AB/AG Nonreactive Nonreactive [facility] Comment:HIV-1 p24 Ag and/or HIV-1/HIV-2 Ab not detected.A test result that is nonreactive does not exclude thepossibility of exposure to or infection with HIV-1 and/orHIV-2. Nonreactive results in this assay for individualswith prior exposure to HIV-1 and/or HIV-2 may be due toantigen and antibody levels that are below the limit ofdetection of this assay.The [employer] HIV Ag/Ab Combo assay result andsupplemental assay results should be interpreted inconjunction with the patient's clinical presentation,history and other laboratory results. If the results areinconsistent with clinical evidence, additional testing issuggested to confirm the result. 11/19/2022 11:1 1 AM EDT 11/19/2022 2:48 PM EDT Christ Reddy MD LAB BLOOD ORDERABLES Final Re sult Performing Organization Address [facility] de Phone Number [facility] [address] [place] [phone] * Hepatitis C Antibody with Reflex to HCV, RNA, Quantitative, Real-Time PCR (11/19/2022 11:11 AM EDT) Hepatitis C Antibody Nonreactive Nonreactive [facility] Comment:Antibodies to HCV no t detected; does not exclude early acuteHCV infection. 11/19/2022 11:1 1 AM EDT 11/19/2022 2:48 PM EDT Christ Reddy MD LAB BLOOD ORDERABLES Final Re sult Performing Organization Address [facility] de Phone Number [facility] [address] [place] [phone] * (ABNORMAL) Lipid Panel, Standard (11/19/2022 11:11 AM EDT) Triglycerides 89 <150 mg/dL [facility] Comment:Desirable Triglyceri de: less than 150 mg/dLBorderline High Triglyceride 150-199 mg/dLHigh Triglyceride: 200-499 mg/dLVery High Triglyceride: greater than or equal to 5OO mg/dL Cholesterol 219(H) <200 mg/dL [facility] Comment:Desirable Cholestero l: less than 200 mg/dLBorderline High Cholesterol: 200-239 mg/dLHigh Cholesterol: greater than 239 mg/dL LDL Cholesterol Calculated 174(H) <100 mg/dL [facility] Comment:Desirable LDL: less than 100 mg/dLNear Optimal/Above Optimal LDL: 110- 129 mg/dLBorderline High LDL: 130-159 mg/dLHigh LDL: 160-189 mg/dLVery High LDL: greater than or equal to 190 mg/dL HDL Cholesterol 28(L) >40 mg/dL [facility] Comment:Desirable HDL: great er than 40 mg/dL Note: This HDL assay may give artificially low results in patients with liver disease. 11/19/2022 11:1 1 AM EDT 11/19/2022 2:48 PM EDT us Christ Reddy MD LAB BLOOD ORDERABLES Final Re sult [facility] [address] [place] [phone] from Last 3 Months or Most Recently Relevant to Health Maintenance Insurance [facility] Care Teams Rim Technician Relationship Specialty Start Date End Date Carolee Shea MD [address] [place] [phone] PCP - General Internal Medicine 10/07/23
--- OUTSIDE RECORDS SUMMARY | 2024-06-09 17:10 | XMS_ITS | Encounter Summary ---
Author Organization [employer] Address [address] [facility] [address] [place] [address] Care Team Providers Care Electric Scoop Operator Name Role Phone Kylee Guerra MD Primary Care Pro vider Carolee Shea MD Primary Care Provider [phone] Encounter Details Date Type Department Care Team ([facility] st Contact Info) Description 09/19/2023 Orders Only [facility] MED & PEDS [address] [place] [address] Carolee Shea MD [address] [place] [address] Erectile dysfunction, unspecified erectile dysfunction type (Primary Dx) Social History Tobacco Use Types Packs/Day Years Used Date Smoking Tobacco: Never Smokeless Tobacco: Never Alcohol Use Standard Drinks/Week Comments Never 0 [...] not to disclose 2022 9:06 AM EDT documented as of this encounter Miscellaneous Notes * Result Encounter Note - Carolee Shea MD - 09/19/2023 7:30 PM EDT The second reading of testosterone is not elevated. I anticipate improvement of pt's testosterone level if he would loose 5 to 10 % of his current body weight. I will repeat the level to reassess in 3 months or so. documented in this encounter Plan of Treatment Not on file documented as of this encounter Procedures Procedure Name Priority Date/Time Associated Diagnosis Comments TESTOSTERONE, TOTAL, MALES (ADULT), IA Routine 09/27/2023 10:34 AM EDT Erectile dysfunction, unspecified erectile dysfunction type documented in this encounter Results * Testosterone, Total, males (Adult), IA (09/27/2023 10:34 AM EDT) Testosterone, Total 281 250 - 1100 ng/dL [facility] Comment:For additional infor ravi, please refer [email or web address](This link is being provided for informational/educational purposes only.)This test was developed and its analytical performancecharacteristics have been determined by [employer] [place], [place]. It hasnot been cleared or approved by the U.S. Food and DrugAdministration. This assay has been validated pursuantto the CLIA regulations and is used for clinicalpurposes.THIS TEST WAS PERFORMED AT:[employer] [place] [id number] HERNADEZ MD,PHD Blood Venous blood specimen / Unknown 09/27/2023 10:34 AM EDT 09/27/2023 1:58 PM EDT Carolee Shea MD LAB BLOOD ORDERABLES Final Result [facility] [address] [place] [phone] documented in this encounter Visit Diagnoses Diagnosis Erectile dysfunction, unspecified erectile dysfunction type- Primary documented in this encounter Additional Health Concerns Assessment Noted Time PHQ-9 Depression Total Score: 8 05/13/19 24 9:14 AM EST documented as of this encounter Care Teams Electric Scoop Operator Relationship Specialty Start Date End Date Kylee Guerra MD [address] [place] [address] PCP - General Internal Medicine 08/06/22 10/06/23 Carolee Shea MD [address] [place] [phone] PCP - General Internal Medicine 10/07/23 documented as of this encounter
--- OUTSIDE RECORDS SUMMARY | 2024-06-09 17:10 | XMS_ITS | Data Portability ---
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 Plan for C6/7 and C7/T1 total disc replacement after updating his MRI Plan: Mr. Malone is symptoms do continue to show numbness tingling as well as weakness in the C7 and C8 distribution of his left upper extremity. His cervical MRI however is out of date, almost 18 months old and should be updated for preop planning and for the safety of the patient. We will see him at the time of his procedure an updated study. Patient is happy with the splint, questions answered to his satisfaction. Work Status: Out of work [email or web address] Not available 09/16/2022 08:42:36 01/26/2023 01/26/2023 Assessment: As above Date of Injury: 01/17/2020 Plan: Mr. Malone appears to be doing quite well at this stage. We will begin a course of physical therapy and see him back in follow-up. Work Status: Out of work [email or web address] Not available 01/26/2023 11:19:59 03/09/2023 03/09/2023 Assessment: As above Date of Injury: 01/17/2020 Plan: Mr. Malone appears to be doing quite well at this stage. See him back in follow-up to physical therapy. He will begin a course of nocturnal splinting for his carpal tunnel syndromes. Work Status: [email or web address] Not available 03/09/2023 13:02:23 06/16/2023 06/16/2023 Assessment: As above Date of Injury: 01/17/2020 Plan: Mr. Malone appears to be doing quite well at this stage now just under 6 months status post his C6-7 and C7-T1 total disc replacement. He does however continue to exhibit symptoms consistent with carpal tunnel syndrome despite nocturnal splinting since his last visit. This point recommended obtaining a bilateral upper extremity EMG and following up with the hand and upper extremity service for further evaluation. We will see him back 6 months for further evaluation. Patient had the opportunity to ask questions which were answered to their satisfaction. They are in agreement with the plan going forward. Dr. Carlson personally reexamined the patient and evaluated and interpreted their imaging and exam studies and agrees with the above plan. [email or web address] Not available 06/16/2023 11:33:11 Plan of Treatment Reminders Order Date Submit Date Provider Last Modified By Organization Details Last Modified Time Details Appointments None recorded. Lab None recorded. Referral None recorded. Procedures None recorded. Surgeries None recorded. Imaging electromyog johana + nerve conduction study - Bilateral upper extremity carpal tunnel syndrome 2023 024 [facility] Scheduling, [address] [place], [address], 4 07:35:00 MRI, cervical spine, w/o contrast - Neck pain/radicu lopathy eval C6-7, C7-T1 stenosis (CPT: 16072) 2022 023 [facility], [address], [place], [address], 3 14:30:26 Medication Orders ibuprofen [address] [facility] #[id number], [address] [facility], [place], [address], 4 11:35:51 Patient TargetsNo targets recorded. Patient InstructionsNo instructions recorded. Reason for Referral None Reported. Results Created Date Observation Date Name Description Value Unit Range Abnormal Flag Note LastModifiedBy Organization Detail LastModifiedTime 09/17/1909/16/2022 CBC WBC 7.05 K/uL 4.00-1 1.00 Not Available [facility] Scheduling [address] [place], [address], 09/16/2022 10:13:06 09/17/1909/16/2022 CBC RBC 4.67 M/uL 4.10-5 .60 Not Available [facility] Scheduling [address] [place], [address], 09/16/2022 10:13:06 09/17/19 23 09/16/2022 CBC hemoglobin 14.5 g/dL 12.7-1 6.7 Not Available [facility] Scheduling [address] [place], [address], 09/16/2022 10:13:06 09/17/19 23 09/16/2022 CBC hematocrit 42.9 % 38.1-5 0.1 Not Available [facility] Scheduling [address] [place], [address], 09/16/2022 10:13:06 09/17/19 23 09/16/2022 CBC MCV 92 fL 82-98 Not Available [facility] Scheduling [address] [place], [address], 09/16/2022 10:13:06 09/17/19 23 09/16/2022 CBC RDW 12.0 % 11.5-1 4.5 Not Available [facility] Scheduling [address] [place], [address], 09/16/2022 10:13:06 09/17/19 23 09/16/2022 CBC platelet count 259 K/uL 150-45 0 Not Available [facility] Scheduling [address] [place], [address], 09/16/2022 10:13:06 09/17/19 23 09/16/2022 CBC MCH 31.0 pg 23.0-[address] [facility] [address] [place], [address], 09/16/2022 10:13:06 09/17/19 23 09/16/2022 CBC MCHC 33.8 g/dL 29.0-3 8.0 Not Available [facility] Scheduling [address] [place], [address], 09/16/2022 10:13:06 09/17/19 23 09/16/2022 CBC mean platelet volume 9.7 fL 6.0-14 .0 Lab Direc tor: ISAIAH MOORE Not Available [facility] [address] [place], [address], 09/16/2022 10:13:06 09/17/19 23 09/16/2022 PROTI ME-IN R PT 13.0 s 12.2-[address] [facility] [address] [place], [address], 09/16/2022 10:23:08 09/17/19 23 09/16/2022 PROTI ME-IN R INR 1.0 0.9-1. 1 Lab Direc tor: ISAIAH MOORE Not Available [facility] [address] [place], [address], 09/16/2022 10:23:08 09/17/19 23 09/16/2022 BASIC METAB OLIC PANEL sodium 139 mmol/ L 135-[address] [facility] [address] [place], [address], 09/16/2022 11:49:17 09/17/19 23 09/16/2022 BASIC METAB OLIC PANEL potassium 4.9 mmol/ L 3.4-5. 2 Plasm a sampl e Sampl es teste d in serum may exhib it a highe r potas sium value than those teste d on plasm a. Our curre nt range is based on plasm a testi ng. Not Available [facility] Scheduling [address] [place], [address], 09/16/2022 11:49:17 09/17/19 23 09/16/2022 BASIC METAB OLIC PANEL chloride 109 mmol/ L 98-110 Not Available [facility] Scheduling [address] [place], [address], 09/16/2022 11:49:17 09/17/19 23 09/16/2022 BASIC METAB OLIC PANEL total CO2 23 mmol/ L 24-[address] [facility] [address] [place], [address], 09/16/2022 11:49:17 09/17/19 23 09/16/2022 BASIC METAB OLIC PANEL anion gap 7 mmol/ L 2-[address] [facility] [address] [place], [address], 09/16/2022 11:49:17 09/17/19 23 09/16/2022 BASIC METAB OLIC PANEL BUN 19 mg/dL 7-[address] [facility] [address] [place], [address], 09/16/2022 11:49:17 09/17/1909/16/2022 BASIC METAB OLIC PANEL creatinine 1.1 mg/dL 0.6-1. 3 Not Available [facility] Scheduling [address] [place], [address], 09/16/2022 11:49:17 09/17/1909/16/2022 BASIC METAB OLIC PANEL glucose 97 mg/dL 70-118 Not Available [facility] Scheduling [address] [place], [address], 09/16/2022 11:49:17 09/17/19 23 09/16/2022 BASIC METAB OLIC PANEL calcium 9.5 mg/dL 8.5-10 .5 Not Available [facility] Scheduling [address] [place], [address], 09/16/2022 11:49:17 09/17/19 23 09/16/2022 BASIC METAB OLIC PANEL estimated GFR (CKD-epi) 76 mL/mi n/bsa >=60 This Cr-ba sed equat ion under estim ates GFR in patie nts with incre ased muscl e mass. Order CYSTA TIN C WITH GFR ESTIM ATE, LAB45 59, if addit ional evalu ation of renal funct ion is neede d. Lab Direc tor: ISAIAH MOORE Not Available [facility] Scheduling [address] [place], [address], 09/16/2022 11:49:17 12/17/19 23 12/16/2022 CBC WBC 8.62 K/uL 4.00-1 1.00 Not Available [facility] Scheduling [address] [place], [address], 12/16/2022 10:36:21 12/17/19 23 12/16/2022 CBC RBC 4.84 M/uL 4.10-5 .60 Not Available [facility] Scheduling [address] [place], [address], 12/16/2022 10:36:21 12/17/19 23 12/16/2022 CBC hemoglobin 15.2 g/dL 12.7-1 6.7 Not Available [facility] Scheduling [address] [place], [address], 12/16/2022 10:36:21 12/17/19 23 12/16/2022 CBC hematocrit 44.5 % 38.1-5 0.1 Not Available [facility] Scheduling [address] [place], [address], 12/16/2022 10:36:21 12/17/19 23 12/16/2022 CBC MCV 92 fL 82-98 Not Available [facility] Scheduling [address] [place], [address], 12/16/2022 10:36:21 12/17/19 23 12/16/2022 CBC RDW 12.2 % 11.5-1 4.5 Not Available [facility] Scheduling [address] [place], [address], 12/16/2022 10:36:21 12/17/19 23 12/16/2022 CBC platelet count 279 K/uL 150-45 0 Not Available [facility] Scheduling [address] [place], [address], 12/16/2022 10:36:21 12/17/19 23 12/16/2022 CBC MCH 31.4 pg 23.0-3 7.0 Not Available [facility] Scheduling [address] [place], [address], 12/16/2022 10:36:21 12/17/19 23 12/16/2022 CBC MCHC 34.2 g/dL 29.0-3 8.0 Not Available [facility] Scheduling [address] [place], [address], 12/16/2022 10:36:21 12/17/19 23 12/16/2022 CBC mean platelet volume 9.8 fL 6.0-14 .0 Lab Direc tor: AIRAM ANDREWS Not Available [facility] Scheduling [address] [place], [address], 12/16/2022 10:36:21 12/17/19 23 12/16/2022 PROTI ME-IN R PT 12.7 s 12.2-1 4.2 Not Available [facility] Scheduling [address] [place], [address], 12/16/2022 10:53:09 12/17/1912/16/2022 PROTI ME-IN R INR 0.9 0.9-1. 1 Lab Direc tor: AIRAM ANDREWS Not Available [facility] Scheduling [address] [place], [address], 12/16/2022 10:53:09 12/17/1912/16/2022 APTT PTT 25 s 22-36 Unfra ction ated Hepar in Thera damienuti c Range : 70-11 0 secon ds. Lab Direc tor: AIRAM ANDREWS Not Available [facility] Scheduling [address] [place], [address], 12/16/2022 10:53:11 12/17/1912/16/2022 COMPR EHENS FAVIOLA METAB OLIC PANEL sodium 136 mmol/ L 135-14 6 Not Available [facility] Scheduling [address] [place], [address], 12/16/2022 11:17:10 12/17/1912/16/2022 COMPR EHENS FAVIOLA METAB OLIC PANEL potassium 4.4 mmol/ L 3.4-5. 2 Plasm a sampl e Sampl es teste d in serum may exhib it a highe r potas sium value than those teste d on plasm a. Our curre nt range is based on plasm a testi ng. Not Available [facility] [address] [place], [address], 12/16/2022 11:17:10 12/17/1912/16/2022 COMPR EHENS FAVIOLA METAB OLIC PANEL chloride 107 mmol/ L 98-110 Not Available [facility] Scheduling [address] [place], [address], 12/16/2022 11:17:10 12/17/1912/16/2022 COMPR EHENS FAVIOLA METAB OLIC PANEL total CO2 22 mmol/ L 24-32 low Not Available [facility]uling [address] [place], [address], 12/16/2022 11:17:10 12/17/1912/16/2022 COMPR EHENS FAVIOLA METAB OLIC PANEL anion gap 7 mmol/ L 2-15 Not Available [facility] [address] [place], [address], 12/16/2022 11:17:10 12/17/19 23 12/16/2022 COMPR EHENS FAVIOLA METAB OLIC PANEL BUN 14 mg/dL 7-24 Not Available [facility] Scheduling [address] [place], [address], 12/16/2022 11:17:10 12/17/19 23 12/16/2022 COMPR EHENS FAVIOLA METAB OLIC PANEL creatinine 1.0 mg/dL 0.6-1. 3 Not Available [facility] Scheduling [address] [place], [address], 12/16/2022 11:17:10 12/17/1912/16/2022 COMPR EHENS FAVIOLA METAB OLIC PANEL glucose 95 mg/dL 70-118 Not Available [facility] [address] [place], [address], 12/16/2022 11:17:10 12/17/1912/16/2022 COMPR EHENS FAVIOLA METAB OLIC PANEL calcium 9.5 mg/dL 8.5-10 .5 Not Available [facility] [address] [place], [address], 12/16/2022 11:17:10 12/17/19 23 12/16/2022 COMPR EHENS FAVIOLA METAB OLIC PANEL total protein 7.7 g/dL 6.2-8. 2 Not Available [facility] [address] [place], [address], 12/16/2022 11:17:10 12/17/19 23 12/16/2022 COMPR EHENS FAVIOLA METAB OLIC PANEL albumin, blood 4.1 g/dL 3.4-5. 2 Not Available [facility] Scheduling [address] [place], [address], 12/16/2022 11:17:10 12/17/19 23 12/16/2022 COMPR EHENS FAVIOLA METAB OLIC PANEL globulin 3.6 g/dL 2.0-4. 0 Not Available [facility] Scheduling [address] [place], [address], 12/16/2022 11:17:10 12/17/19 23 12/16/2022 COMPR EHENS FAVIOLA METAB OLIC PANEL AST (SGOT) 31 IU/L 11-40 Not Available [facility] Scheduling [address] [place], [address], 12/16/2022 11:17:10 12/17/19 23 12/16/2022 COMPR EHENS FAVIOLA METAB OLIC PANEL ALT (SGPT) 62 IU/L 7-40 high Not Available [facility] Scheduling [address] [place], [address], 12/16/2022 11:17:10 12/17/19 23 12/16/2022 COMPR EHENS FAVIOLA METAB OLIC PANEL alk phosphatase 101 IU/L 30-115 Not Available [facility] Scheduling [address] [place], [address], 12/16/2022 11:17:10 12/17/19 23 12/16/2022 COMPR EHENS FAVIOLA METAB OLIC PANEL total bilirubin 0.6 mg/dL 0.0-1. 2 Not Available [facility] Scheduling [address] [place], [address], 12/16/2022 11:17:10 12/17/19 23 12/16/2022 COMPR EHENS FAVIOLA METAB OLIC PANEL estimated GFR (CKD-epi) 85 mL/mi n/bsa >=60 This Cr-ba sed equat ion under estim ates GFR in patie nts with incre ased muscl e mass. Order CYSTA TIN C WITH GFR ESTIM ATE, LAB45 59, if addit ional evalu ation of renal funct ion is neede d. Lab Direc tor: AIRAM ANDREWS Not Available [facility] Scheduling [address] [place], [address], 12/16/2022 11:17:10 12/17/19 23 12/16/2022 HEMOG LOBIN A1C hemoglobin A1C 5.7 % 4.6-5. 6 high Not Available [facility]uling [address] [place], [address], 12/16/2022 13:45:45 12/17/1912/16/2022 HEMOG LOBIN A1C estimated average glucose 117 mg/dL Lab Dire tor: AIRAM ANDREWS Not Available [facility] Scheduling [address] [place], [address], 12/16/2022 13:45:45 01/01/2012/31/2022 CBC WBC 14.59 K/uL 4.00-1 1.00 high Not Available [facility] [address] [place], [address], 12/31/2022 19:59:31 01/01/20 23 12/31/2022 CBC RBC 4.53 M/uL 4.10-5 .60 Not Available [facility] [address] [place], [address], 12/31/2022 19:59:31 01/01/20 23 12/31/2022 CBC hemoglobin 14.1 g/dL 12.7-1 6.7 Not Available [facility] [address] [place], [address], 12/31/2022 19:59:31 01/01/20 23 12/31/2022 CBC hematocrit 42.6 % 38.1-5 0.1 Not Available [facility] [address] [place], [address], 12/31/2022 19:59:31 01/01/20 23 12/31/2022 CBC MCV 94 fL 82-98 Not Available [facility] [address] [place], [address], 12/31/2022 19:59:31 01/01/20 23 12/31/2022 CBC RDW 12.3 % 11.5-1 4.5 Not Available [facility] Scheduling [address] [place], [address], 12/31/2022 19:59:31 01/01/20 23 12/31/2022 CBC platelet count 265 K/uL 150-45 0 Not Available [facility]uling [address] [place], [address], 12/31/2022 19:59:31 01/01/20 23 12/31/2022 CBC MCH 31.1 pg 23.0-3 7.0 Not Available [facility]uling [address] [place], [address], 12/31/2022 19:59:31 01/01/20 23 12/31/2022 CBC MCHC 33.1 g/dL 29.0-3 8.0 Not Available [facility] [address] [place], [address], 12/31/2022 19:59:31 01/01/20 23 12/31/2022 CBC mean platelet volume 9.6 fL 6.0-14 .0 Lab Direc tor: AIRAM ANDREWS Not Available [facility]uling [address] [place], [address], 12/31/2022 19:59:31 01/01/20 23 12/31/2022 URINA LYSIS WITH URINE CULTU RE REFLE X color, urine Yellow colorl ess, straw, yellow Not Available [facility] [address] [place], [address], 12/31/2022 22:30:19 01/01/20 23 12/31/2022 URINA LYSIS WITH URINE CULTU RE REFLE X clarity, urine Clear clear Not Available [facility] Scheduling [address] [place], [address], 12/31/2022 22:30:19 01/01/20 23 12/31/2022 URINA LYSIS WITH URINE CULTU RE REFLE X pH, urine 7.0 5.0-9. 0 Not Available [facility] [address] [place], [address], 12/31/2022 22:30:19 01/01/20 23 12/31/2022 URINA LYSIS WITH URINE CULTU RE REFLE X protein ur Negati ve negati ve Not Available [facility] [address] [place], [address], 12/31/2022 22:30:19 01/01/20 23 12/31/2022 URINA LYSIS WITH URINE CULTU RE REFLE X ketone, ur Negati ve negati ve Not Available [facility] [address] [place], [address], 12/31/2022 22:30:19 01/01/20 23 12/31/2022 URINA LYSIS WITH URINE CULTU RE REFLE X glucose ur Negati ve negati ve Not Available [facility] [address] [place], [address], 12/31/2022 22:30:19 01/01/20 23 12/31/2022 URINA LYSIS WITH URINE CULTU RE REFLE X blood ur Negati ve negati ve Not Available [facility] [address] [place], [address], 12/31/2022 22:30:19 01/01/20 23 12/31/2022 URINA LYSIS WITH URINE CULTU RE REFLE X leukocyte ur Negati ve negati ve Not Available [facility] [address] [place], [address], 12/31/2022 22:30:19 01/01/20 23 12/31/2022 URINA LYSIS WITH URINE CULTU RE REFLE X nitrite ur Negati ve negati ve Not Available [facility] [address] [place], [address], 12/31/2022 22:30:19 01/01/20 23 12/31/2022 URINA LYSIS WITH URINE CULTU RE REFLE X specific gravity ur 1.017 1.001- 1.030 Not Available [facility] [address] [place], [address], 12/31/2022 22:30:19 01/01/20 23 12/31/2022 URINA LYSIS WITH URINE CULTU RE REFLE X bilirubin ur Negati ve negati ve Not Available [facility] [address] [place], [address], 12/31/2022 22:30:19 01/01/20 23 12/31/2022 URINA LYSIS WITH URINE CULTU RE REFLE X urobilinogen ur Negati ve negati ve Not Available [facility] [address] [place], [address], 12/31/2022 22:30:19 01/01/20 23 12/31/2022 URINA LYSIS WITH URINE CULTU RE REFLE X WBC, ur (numeric) < 1 /hpf <=4 Not Available [facility]uling [address] [place], [address], 12/31/2022 22:30:19 01/01/20 23 12/31/2022 URINA LYSIS WITH URINE CULTU RE REFLE X RBC, ur (numeric) 1 /hpf <=2 Not Available [facility] [address] [place], [address], 12/31/2022 22:30:19 01/01/20 23 12/31/2022 URINA LYSIS WITH URINE CULTU RE REFLE X squamous epithelial cells Few /hpf none, rare, few Lab Direc tor: AIRAM ANDREWS Not Available [facility] [address] [place], [address], 12/31/2022 22:30:19 01/01/20 23 12/31/2022 CULTU RE, BLOOD blood culture No growth after 5 days Not Available [facility] [address] [place], [address], 01/05/2023 22:02:21 01/01/20 23 12/31/2022 CULTU RE, BLOOD blood culture No growth after 5 days Not Available [facility] Scheduling [address] [place], [address], 01/05/2023 22:02:37 01/02/20 23 01/01/2023 CULTU RE, SPUTU M (INCL GRAM) respiratory culture Normal cristina Not Available [facility] Scheduling [address] [place], [address], 01/03/2023 10:49:26 01/02/2001/01/2023 CULTU RE, SPUTU M (INCL GRAM) smear, gram stain Moder ate Squam ous epith elial cells Moder ate Neutr ophil s Many Gram posit faviola cocci Rare Gram posit faviola rods Rare Gram negat faviola rods Not Available [facility] Scheduling [address] [place], [address], 01/03/2023 10:49:26 01/02/2001/01/2023 BASIC METAB OLIC PANEL sodium 133 mmol/ L 135-14 6 low Not Available [facility] Scheduling [address] [place], [address], 01/01/2023 09:42:35 01/02/2001/01/2023 BASIC METAB OLIC PANEL potassium 4.3 mmol/ L 3.4-5. 2 Plasm a sampl e Sampl es teste d in serum may exhib it a highe r potas sium value than those teste d on plasm a. Our curre nt range is based on plasm a testi ng. Not Available [facility] Scheduling [address] [place], [address], 01/01/2023 09:42:35 01/02/20 23 01/01/2023 BASIC METAB OLIC PANEL chloride 102 mmol/ L 98-110 Not Available [facility] Scheduling [address] [place], [address], 01/01/2023 09:42:35 01/02/20 23 01/01/2023 BASIC METAB OLIC PANEL total CO2 24 mmol/ L 24-32 Not Available [facility] Scheduling [address] [place], [address], 01/01/2023 09:42:35 01/02/20 23 01/01/2023 BASIC METAB OLIC PANEL anion gap 8 mmol/ L 2-15 Not Available [facility] [address] [place], [address], 01/01/2023 09:42:35 01/02/20 23 01/01/2023 BASIC METAB OLIC PANEL BUN 18 mg/dL 7-24 Not Available [facility] [address] [place], [address], 01/01/2023 09:42:35 01/02/20 23 01/01/2023 BASIC METAB OLIC PANEL creatinine 1.1 mg/dL 0.6-1. 3 Not Available [facility] Scheduling [address] [place], [address], 01/01/2023 09:42:35 01/02/20 23 01/01/2023 BASIC METAB OLIC PANEL glucose 95 mg/dL 70-118 Not Available [facility] Scheduling [address] [place], [address], 01/01/2023 09:42:35 01/02/20 23 01/01/2023 BASIC METAB OLIC PANEL calcium 8.9 mg/dL 8.5-10 .5 Not Available [facility] [address] [place], [address], 01/01/2023 09:42:35 01/02/20 23 01/01/2023 BASIC METAB OLIC PANEL estimated GFR (CKD-epi) 76 mL/mi n/bsa >=60 This Cr-ba sed equat ion under estim ates GFR in patie nts with incre ased muscl e mass. Order CYSTA TIN C WITH GFR ESTIM ATE, LAB45 59, if addit ional evalu ation of renal funct ion is neede d. Lab Direc tor: AIRAM ANDREWS Not Available [facility] [address] [place], [address], 01/01/2023 09:42:35 01/02/2001/01/2023 CBC AND DIFFE RENTI AL WBC 13.86 K/uL 4.00-1 1.00 high Not Available [facility] Scheduling [address] [place], [address], 01/01/2023 09:42:55 01/02/2001/01/2023 CBC AND DIFFE RENTI AL RBC 4.41 M/uL 4.10-5 .60 Not Available [facility] [address] [place], [address], 01/01/2023 09:42:55 01/02/2001/01/2023 CBC AND DIFFE RENTI AL hemoglobin 13.8 g/dL 12.7-1 6.7 Not Available [facility] [address] [place], [address], 01/01/2023 09:42:55 01/02/2001/01/2023 CBC AND DIFFE RENTI AL hematocrit 42.5 % 38.1-5 0.1 Not Available [facility] [address] [place], [address], 01/01/2023 09:42:55 01/02/2001/01/2023 CBC AND DIFFE RENTI AL MCV 96 fL 82-98 Not Available [facility] [address] [place], [address], 01/01/2023 09:42:55 01/02/2001/01/2023 CBC AND DIFFE RENTI AL RDW 12.3 % 11.5-1 4.5 Not Available [facility] [address] [place], [address], 01/01/2023 09:42:55 01/02/2001/01/2023 CBC AND DIFFE RENTI AL platelet count 223 K/uL 150-45 0 Not Available [facility] [address] [place], [address], 01/01/2023 09:42:55 01/02/2001/01/2023 CBC AND DIFFE RENTI AL polys 63.4 % Not Available [facility] [address] [place], [address], 01/01/2023 09:42:55 01/02/2001/01/2023 CBC AND DIFFE RENTI AL lymphocyte 23.9 % Not Available [facility] [address] [place], [address], 01/01/2023 09:42:55 01/02/2001/01/2023 CBC AND DIFFE RENTI AL monocyte 11.3 % Not Available [facility] Central Scheduling [address] [place], [address], 01/01/2023 09:42:55 01/02/2001/01/2023 CBC AND DIFFE RENTI AL eosinophil 0.6 % Not Available [facility] Sched[facility] [address] [place], [address], 01/01/2023 09:42:55 01/02/2001/01/2023 CBC AND DIFFE RENTI AL basophil 0.4 % Not Available [facility] Central Scheduling [address] [place], [address], 01/01/2023 09:42:55 01/02/2001/01/2023 CBC AND DIFFE RENTI AL immature granulocytes 0.4 % Not Available [facility] Central Scheduling [address] [place], [address], 01/01/2023 09:42:55 01/02/2001/01/2023 CBC AND DIFFE RENTI AL absolute gran CT 8.79 K/uL 1.50-7 .70 high Not Available [facility] Central Scheduling [address] [place], [address], 01/01/2023 09:42:55 01/02/2001/01/2023 CBC AND DIFFE RENTI AL absolute lymph CT 3.31 K/uL 1.50-4 .00 Not Available [facility] Central Scheduling [address] [place], [address], 01/01/2023 09:42:55 01/02/2001/01/2023 CBC AND DIFFE RENTI AL absolute mono CT 1.57 K/uL 0.16-1 .26 high Not Available [facility] Central Scheduling [address] [place], [address], 01/01/2023 09:42:55 01/02/2001/01/2023 CBC AND DIFFE RENTI AL absolute eos CT 0.08 K/uL 0.15-0 .30 low Not Available [facility] Scheduling [address] [place], [address], 01/01/2023 09:42:55 01/02/2001/01/2023 CBC AND DIFFE RENTI AL absolute baso CT 0.05 K/uL 0.00-0 .21 Not Available [facility] Scheduling [address] [place], [address], 01/01/2023 09:42:55 01/02/2001/01/2023 CBC AND DIFFE RENTI AL absolute immature gran CT 0.06 K/uL 0.00-0 .09 Not Available [facility] Central Scheduling [address] [place], [address], 01/01/2023 09:42:55 01/02/20 23 01/01/2023 CBC AND DIFFE RENTI AL MCH 31.3 pg 23.0-3 7.0 Not Available [facility] Sched[facility] [address] [place], [address], 01/01/2023 09:42:55 01/02/20 23 01/01/2023 CBC AND DIFFE RENTI AL MCHC 32.5 g/dL 29.0-3 8.0 Not Available [facility] Scheduling [address] [place], [address], 01/01/2023 09:42:55 01/02/2001/01/2023 CBC AND DIFFE RENTI AL mean platelet volume 10.0 fL 6.0-14 .0 Lab Direc tor: AIRAM ANDREWS Not Available [facility] Scheduling [address] [place], [address], 01/01/2023 09:42:55 01/03/2001/02/2023 CBC AND DIFFE RENTI AL WBC 11.12 K/uL 4.00-1 1.00 high Not Available [facility] Central Scheduling [address] [place], [address], 01/02/2023 10:08:30 01/03/2001/02/2023 CBC AND DIFFE RENTI AL RBC 4.31 M/uL 4.10-5 .60 Not Available [facility] Scheduling [address] [place], [address], 01/02/2023 10:08:30 01/03/20 23 01/02/2023 CBC AND DIFFE RENTI AL hemoglobin 13.5 g/dL 12.7-1 6.7 Not Available [facility] Scheduling [address] [place], [address], 01/02/2023 10:08:30 01/03/2001/02/2023 CBC AND DIFFE RENTI AL hematocrit 40.4 % 38.1-5 0.1 Not Available [facility] Scheduling [address] [place], [address], 01/02/2023 10:08:30 01/03/2001/02/2023 CBC AND DIFFE RENTI AL MCV 94 fL 82-98 Not Available [facility] Scheduling [address] [place], [address], 01/02/2023 10:08:30 01/03/20 23 01/02/2023 CBC AND DIFFE RENTI AL RDW 11.9 % 11.5-1 4.5 Not Available [facility] Scheduling [address] [place], [address], 01/02/2023 10:08:30 01/03/20 23 01/02/2023 CBC AND DIFFE RENTI AL platelet count 239 K/uL 150-45 0 Not Available [facility] Sched[facility] [address] [place], [address], 01/02/2023 10:08:30 01/03/20 23 01/02/2023 CBC AND DIFFE RENTI AL polys 70.5 % Not Available [facility]uling [address] [place], [address], 01/02/2023 10:08:30 01/03/20 23 01/02/2023 CBC AND DIFFE RENTI AL lymphocyte 18.3 % Not Available [facility] [address] [place], [address], 01/02/2023 10:08:30 01/03/20 23 01/02/2023 CBC AND DIFFE RENTI AL monocyte 8.1 % Not Available [facility] Sched[facility] [address] [place], [address], 01/02/2023 10:08:30 01/03/20 23 01/02/2023 CBC AND DIFFE RENTI AL eosinophil 2.3 % Not Available [facility] [address] [place], [address], 01/02/2023 10:08:30 01/03/20 23 01/02/2023 CBC AND DIFFE RENTI AL basophil 0.4 % Not Available [facility] Scheduling [address] [place], [address], 01/02/2023 10:08:30 01/03/20 23 01/02/2023 CBC AND DIFFE RENTI AL immature granulocytes 0.4 % Not Available [facility] Central Scheduling [address] [place], [address], 01/02/2023 10:08:30 01/03/20 23 01/02/2023 CBC AND DIFFE RENTI AL absolute gran CT 7.83 K/uL 1.50-7 .70 high Not Available [facility] Scheduling [address] [place], [address], 01/02/2023 10:08:30 01/03/20 23 01/02/2023 CBC AND DIFFE RENTI AL absolute lymph CT 2.04 K/uL 1.50-4 .00 Not Available [facility] [address] [place], [address], 01/02/2023 10:08:30 01/03/20 23 01/02/2023 CBC AND DIFFE RENTI AL absolute mono CT 0.90 K/uL 0.16-1 .26 Not Available [facility] [address] [facility] [place], [address], 01/02/2023 10:08:30 01/03/20 23 01/02/2023 CBC AND DIFFE RENTI AL absolute eos CT 0.26 K/uL 0.15-0 .30 Not Available [facility] [address] [place], [address], 01/02/2023 10:08:30 01/03/20 23 01/02/2023 CBC AND DIFFE RENTI AL absolute baso CT 0.04 K/uL 0.00-0 .21 Not Available [facility] [address] [facility] [place], [address], 01/02/2023 10:08:30 01/03/20 23 01/02/2023 CBC AND DIFFE RENTI AL absolute immature gran CT 0.05 K/uL 0.00-0 .09 Not Available [facility] [address] [facility] [place], [address], 01/02/2023 10:08:30 01/03/20 23 01/02/2023 CBC AND DIFFE RENTI AL MCH 31.3 pg 23.0-3 7.0 Not Available [facility] [address] [place], [address], 01/02/2023 10:08:30 01/03/20 23 01/02/2023 CBC AND DIFFE RENTI AL MCHC 33.4 g/dL 29.0-3 8.0 Not Available [facility] [address] [place], [address], 01/02/2023 10:08:30 01/03/20 23 01/02/2023 CBC AND DIFFE RENTI AL mean platelet volume 9.5 fL 6.0-14 .0 Lab Dire tor: AIRAM ANDREWS Not Available [facility] [address] [place], [address], 01/02/2023 10:08:30 01/04/20 23 01/03/2023 CBC AND DIFFE RENTI AL WBC 9.66 K/uL 4.00-1 1.00 Not Available [facility] [address] [place], [address], 01/03/2023 06:59:24 01/04/2001/03/2023 CBC AND DIFFE RENTI AL RBC 4.18 M/uL 4.10-5 .60 Not Available [facility] [address] [place], [address], 01/03/2023 06:59:24 01/04/20 23 01/03/2023 CBC AND DIFFE RENTI AL hemoglobin 13.1 g/dL 12.7-1 6.7 Not Available [facility] Scheduling [address] [place], [address], 01/03/2023 06:59:24 01/04/20 23 01/03/2023 CBC AND DIFFE RENTI AL hematocrit 39.6 % 38.1-5 0.1 Not Available [facility] Scheduling [address] [place], [address], 01/03/2023 06:59:24 01/04/20 23 01/03/2023 CBC AND DIFFE RENTI AL MCV 95 fL 82-98 Not Available [facility] [address] [place], [address], 01/03/2023 06:59:24 01/04/20 23 01/03/2023 CBC AND DIFFE RENTI AL RDW 11.9 % 11.5-1 4.5 Not Available [facility] Scheduling [address] [place], [address], 01/03/2023 06:59:24 01/04/20 23 01/03/2023 CBC AND DIFFE RENTI AL platelet count 245 K/uL 150-45 0 Not Available [facility]uling [address] [place], [address], 01/03/2023 06:59:24 01/04/20 23 01/03/2023 CBC AND DIFFE RENTI AL polys 63.1 % Not Available [facility] Scheduling [address] [place], [address], 01/03/2023 06:59:24 01/04/20 23 01/03/2023 CBC AND DIFFE RENTI AL lymphocyte 22.3 % Not Available [facility] Scheduling [address] [place], [address], 01/03/2023 06:59:24 01/04/20 23 01/03/2023 CBC AND DIFFE RENTI AL monocyte 8.3 % Not Available [facility] Scheduling [address] [place], [address], 01/03/2023 06:59:24 01/04/20 23 01/03/2023 CBC AND DIFFE RENTI AL eosinophil 5.5 % Not Available [facility] Scheduling [address] [place], [address], 01/03/2023 06:59:24 01/04/20 23 01/03/2023 CBC AND DIFFE RENTI AL basophil 0.4 % Not Available [facility] Scheduling [address] [place], [address], 01/03/2023 06:59:24 01/04/20 23 01/03/2023 CBC AND DIFFE RENTI AL immature granulocytes 0.4 % Not Available [facility] Central Scheduling [address] [place], [address], 01/03/2023 06:59:24 01/04/20 23 01/03/2023 CBC AND DIFFE RENTI AL absolute gran CT 6.10 K/uL 1.50-7 .70 Not Available [facility] Scheduling [address] [place], [address], 01/03/2023 06:59:24 01/04/20 23 01/03/2023 CBC AND DIFFE RENTI AL absolute lymph CT 2.15 K/uL 1.50-4 .00 Not Available [facility] Scheduling [address] [place], [address], 01/03/2023 06:59:24 01/04/20 23 01/03/2023 CBC AND DIFFE RENTI AL absolute mono CT 0.80 K/uL 0.16-1 .26 Not Available [facility] Scheduling [address] [place], [address], 01/03/2023 06:59:24 01/04/20 23 01/03/2023 CBC AND DIFFE RENTI AL absolute eos CT 0.53 K/uL 0.15-0 .30 high Not Available [facility] Scheduling [address] [place], [address], 01/03/2023 06:59:24 01/04/20 23 01/03/2023 CBC AND DIFFE RENTI AL absolute baso CT 0.04 K/uL 0.00-0 .21 Not Available [facility] Scheduling [address] [place], [address], 01/03/2023 06:59:24 01/04/20 23 01/03/2023 CBC AND DIFFE RENTI AL absolute immature gran CT 0.04 K/uL 0.00-0 .09 Not Available [facility] Scheduling [address] [place], [address], 01/03/2023 06:59:24 01/04/20 23 01/03/2023 CBC AND DIFFE RENTI AL MCH 31.3 pg 23.0-3 7.0 Not Available [facility] Scheduling [address] [place], [address], 01/03/2023 06:59:24 01/04/20 23 01/03/2023 CBC AND DIFFE RENTI AL MCHC 33.1 g/dL 29.0-3 8.0 Not Available [facility] Scheduling [address] [place], [address], 01/03/2023 06:59:24 01/04/20 23 01/03/2023 CBC AND DIFFE RENTI AL mean platelet volume 9.8 fL 6.0-14 .0 Lab Direc tor: AIRAM ANDREWS Not Available [facility] Scheduling [address] [place], [address], 01/03/2023 06:59:24 01/05/20 23 01/04/2023 CBC AND DIFFE RENTI AL WBC 7.99 K/uL 4.00-1 1.00 Not Available [facility] Scheduling [address] [place], [address], 01/04/2023 07:03:15 01/05/2001/04/2023 CBC AND DIFFE RENTI AL RBC 4.15 M/uL 4.10-5 .60 Not Available [facility] Scheduling [address] [place], [address], 01/04/2023 07:03:15 01/05/20 23 01/04/2023 CBC AND DIFFE RENTI AL hemoglobin 12.8 g/dL 12.7-1 6.7 Not Available [facility] Scheduling [address] [place], [address], 01/04/2023 07:03:15 01/05/2001/04/2023 CBC AND DIFFE RENTI AL hematocrit 38.7 % 38.1-5 0.1 Not Available [facility] Central Scheduling [address] [place], [address], 01/04/2023 07:03:15 01/05/2001/04/2023 CBC AND DIFFE RENTI AL MCV 93 fL 82-98 Not Available [facility] Central Scheduling [address] [place], [address], 01/04/2023 07:03:15 01/05/2001/04/2023 CBC AND DIFFE RENTI AL RDW 11.8 % 11.5-1 4.5 Not Available [facility] Scheduling [address] [place], [address], 01/04/2023 07:03:15 01/05/2001/04/2023 CBC AND DIFFE RENTI AL platelet count 277 K/uL 150-45 0 Not Available [facility] Scheduling [address] [place], [address], 01/04/2023 07:03:15 01/05/2001/04/2023 CBC AND DIFFE RENTI AL polys 50.3 % Not Available [facility] Scheduling [address] [place], [address], 01/04/2023 07:03:15 01/05/2001/04/2023 CBC AND DIFFE RENTI AL lymphocyte 29.5 % Not Available [facility] Scheduling [address] [place], [address], 01/04/2023 07:03:15 01/05/2001/04/2023 CBC AND DIFFE RENTI AL monocyte 10.0 % Not Available [facility] Scheduling [address] [place], [address], 01/04/2023 07:03:15 01/05/20 23 01/04/2023 CBC AND DIFFE RENTI AL eosinophil 9.3 % Not Available [facility] Scheduling [address] [place], [address], 01/04/2023 07:03:15 01/05/2001/04/2023 CBC AND DIFFE RENTI AL basophil 0.5 % Not Available [facility] Central Scheduling [address] [place], [address], 01/04/2023 07:03:15 01/05/2001/04/2023 CBC AND DIFFE RENTI AL immature granulocytes 0.4 % Not Available [facility] Central Scheduling [address] [place], [address], 01/04/2023 07:03:15 01/05/20 23 01/04/2023 CBC AND DIFFE RENTI AL absolute gran CT 4.02 K/uL 1.50-7 .70 Not Available [facility] Scheduling [address] [place], [address], 01/04/2023 07:03:15 01/05/2001/04/2023 CBC AND DIFFE RENTI AL absolute lymph CT 2.36 K/uL 1.50-4 .00 Not Available [facility] Scheduling [address] [place], [address], 01/04/2023 07:03:15 01/05/2001/04/2023 CBC AND DIFFE RENTI AL absolute mono CT 0.80 K/uL 0.16-1 .26 Not Available [facility] Scheduling [address] [place], [address], 01/04/2023 07:03:15 01/05/2001/04/2023 CBC AND DIFFE RENTI AL absolute eos CT 0.74 K/uL 0.15-0 .30 high Not Available [facility] Scheduling [address] [place], [address], 01/04/2023 07:03:15 01/05/2001/04/2023 CBC AND DIFFE RENTI AL absolute baso CT 0.04 K/uL 0.00-0 .21 Not Available [facility] Scheduling [address] [place], [address], 01/04/2023 07:03:15 01/05/20 23 01/04/2023 CBC AND DIFFE RENTI AL absolute immature gran CT 0.03 K/uL 0.00-0 .09 Not Available [facility] Scheduling [address] [place], [address], 01/04/2023 07:03:15 01/05/2001/04/2023 CBC AND DIFFE RENTI AL MCH 30.8 pg 23.0-3 7.0 Not Available [facility] Scheduling [address] [place], [address], 01/04/2023 07:03:15 01/05/2001/04/2023 CBC AND DIFFE RENTI AL MCHC 33.1 g/dL 29.0-3 8.0 Not Available [facility] Scheduling [address] [place], [address], 01/04/2023 07:03:15 01/05/2001/04/2023 CBC AND DIFFE RENTI AL mean platelet volume 9.8 fL 6.0-14 .0 Lab Direc tor: AIRAM ANDREWS Not Available [facility] Central Scheduling [address] [place], [address], 01/04/2023 07:03:15 09/24/19 23 09/20/2022 MRI, cervi cyndie spine , w/o contr ast No observ ation record ed. [email or web address] [facility] [place] [address] [facility] [address], [place], [address], 09/23/2022 15:55:21 09/27/19 23 09/20/2022 MRI, cervi cyndie spine , w/o contr ast No observ ation record ed. [email or web address] [facility] [place] [address] [facility] [address], [place], [address], 09/29/2022 15:24:41 10/01/19 MRI, cervi cyndie spine , w/o contr ast No observ ation record ed. [email or web address] [facility] [address], [place], [address], 10/12/2022 12:00:06 12/31/1912/30/2022 XR, cervi cyndie spine , 2 or 3 view EXAM DESCRI PTION: FL OR C SPINE 2 OR 3 VWS CLINIC AL HISTOR Y: Cervic al radicu lopath y COMPAR SHIRIN: None. TECHNI QUE: Intrao perati ve fluoro scopy. FINDIN GS: Intrao perati ve fronta l and latera l views were obtain ed of the cervic al spine for the purpos e of total disc arthro plasty , C6-T1. Total cumula tive dose is 25.9 mGy. IMPRES REBECCA: Intrao perati ve fluoro scopy provid ed for cervic al spine surger y. REPORT SIGNED BY: GERRY SEGURA 12:08: 52 [email or web address] [facility] (Radiology) [address] [facility], [place], [address], 12/30/2022 13:41:32 01/01/2012/31/2022 XR, chest , 1 view EXAM DESCRI PTION: XR CHEST 1 VW PORTAB LE 2022 2:12 pm CLINIC AL HISTOR Y: Wheeze , shortn ess of breath , conges tion. Postop cervic al spine proced ure. COMPAR SHIRIN: No prior studie s for compar shirin. TECHNI QUE: AP view of the chest FINDIN GS: LINES/ TUBES: None LUNGS: Low lung volume s. Curvil inear densit ies within the lower lobes and lingul a. PLEURA : Is no pneumo thorax . No large pleura l effusi ons. Possib le right pleura l calcif ied plaque . HEART AND MEDIAS TINUM: The cardia c and medias tinal contou rs are normal . BONES AND SOFT TISSUE S: Cervic al interv ertebr al spacin g device s are noted. IMPRES REBECCA: Low lung volume s. Presum ed basila r and lingul ar atelec tasis in this postop erativ e patijaylen t, michelle r pneumo shamar could also have this appear ance. REPORT SIGNED BY: RYAN PALACIO 14:22: 11 [email or web address] [facility] (Radiology) [address] [place], [address], 12/31/2022 15:36:17 01/02/2012/31/2022 x-ray XR CHEST 1 VW PORTAB LE INTERFACE [facility] [address] [place], [address], 01/01/2023 04:03:37 01/27/20 23 01/26/2023 x-ray SPINE INTERFACE [facility] [address] [place], [address], 01/26/2023 10:48:06 03/09/19 24 03/09/2023 x-ray SPINE INTERFACE Spo [facility] [address] [place], [address], 03/09/2023 10:56:58 06/16/19 24 06/16/2023 x-ray SPINE INTERFACE Spo [facility] [address] [place], [address], 06/16/2023 11:30:07 08/19/19 24 08/19/2023 elect romyo gram + nerve condu ction study No observ ation record ed. [email or web address] [facility] [address] [place], [address], 08/23/2023 15:21:45 Result Notes None recorded. Problems Name Problem SNOMED Code Status Onset Date Resolution Date Notes Provider Name and Address Organization Details Recorded Time Myofascia l pain syndrome of thoracic spine 650540106834 01 Active 2020 Nam Carlson MD [address] [place], [address], [facility] 1 16:53:35 Neck pain 13731327 Active 2020 Nam Carlson MD [address] [place], [address], [facility] 1 16:53:38 Strain of neck muscle 353059331 Active 2020 Nam Carlson MD [address] [place], [address], [facility] 1 16:53:40 Pain in thoracic spine 189415845 Active 2020 Nam Carlson MD [address] [place], [address], [facility] 1 16:53:41 Cervical radiculop athy 56248000 Active 2020 Nam Carlson MD [address] [place], [address], [facility] 1 16:53:43 Strain of thoracic region 95940271 Active 2020 Nam Carlson MD [address] [place], [address], [facility] 1 16:53:44 Spinal stenosis in cervical region 19190740 Active 2021 Nam Carlson MD [address] [place], [address], [facility] 2 13:33:08 Bilateral carpal tunnel syndrome 511277013477 59298 Active 2023 Nam Carlson MD [address] [place], [address], [facility] 4 11:34:39 Problem Notes None recorded. Procedures Surgical History Date Name Laterality Status Provider Name and Address Organization Details Recorded Time 024 SMN Xray Cervical Spine (4-5) completed BERNIE TINEO [address] [place], [address], [facility] 06/16/2023 11:26:04 024 SMN Xray Cervical Spine (4-5) completed Nam Carlson MD [address] [place], [address], [facility] 03/09/2023 13:01:45 024 Test Interpretation completed Nam Carlson MD [address] [facility] [place] [address], [facility] 03/09/2023 11:33:49 023 SMN Xray Cervical Spine (4-5) completed Nam Carlson MD [address] [facility] [place] [address], [facility] 01/26/2023 11:19:28 023 Test Interpretation completed Nam Carlson MD [address] [facility] [place] [address], [facility] 01/26/2023 11:17:03 023 Test Interpretation completed Nam Carlson MD [address] [facility] [place], [address], [facility] 09/14/2022 12:41:01 023 CAST CHANGE completed Anushka Negro [facility] 09/10/2022 10:19:49 022 Test Interpretation completed BERNIE TABOR [address] [facility] [place], [address], [facility] 11/17/2021 16:05:54 022 Test Interpretation completed Nam Carlson MD [address] [facility] [place], [address], [facility] 10/14/2021 13:11:53 022 Test Interpretation completed Bing Lai [address] [facility] [place], [address], [facility] 04/24/2021 14:12:46 021 Test Interpretation completed Nam Carlson MD [address] [facility] [place], [address], [facility] 02/17/2021 16:51:24 021 Needle EMG completed Vince Mendez MD [address] [facility] [place] [address], [facility] 02/05/2021 13:46:08 021 Nerve Conduction completed Vince Mendez MD [address] [place], [address], [facility] 02/05/2021 13:46:08 Test Interpretation completed Nam Carlson MD [address] [place], [address], [facility] 01/14/2021 14:05:06 SMN Injection Trigger Point (3+) completed ALBINO PETIT MD [address] [place], [address], [facility] 09/23/2020 12:42:49 Test Interpretation completed Nam Carlson MD [address] [place], [address], [facility] 05/15/2020 12:09:24 Imaging Results Imaging Date Name Status LastModified by Organization Details LastModified Time 09/20/2022 MRI, cervical spine, w/o [email or web address] [place] [address], [address], 09/23/2022 15:55:21 09/20/2022 MRI, cervical spine, w/o contrast completed [email or web address] [facility] [place] [address], [address], 09/29/2022 15:24:41 09/30/2022 MRI, cervical spine, w/o contrast completed [email or web address] [facility] [place], [address], 10/12/2022 12:00:06 12/30/2022 XR, cervical spine, 2 or 3 view completed [address] (Radiology) [address] [place], [address], 12/30/2022 13:41:32 12/31/2022 XR, chest, 1 view completed [address] (Radiology) [address] [place], [address], 12/31/2022 15:36:17 12/31/2022 x-ray completed [facility] [address] [facility], [place], [address], 01/01/2023 04:03:37 01/26/2023 x-ray completed [facility] [address] [facility] [place], [address], 01/26/2023 10:48:06 03/09/2023 x-ray completed [facility] [address] [facility], [place], [address], 03/09/2023 10:56:58 06/16/2023 x-ray completed [facility] [address] [facility] [place], [address], 06/16/2023 11:30:07 08/19/2023 electromyogram + nerve conduction study completed [address] [facility] [address] [place] [address], [address], 08/23/2023 15:21:45 Procedure Notes None recorded. Medical Equipment None Reported. Medications Name Sig Start Date Stop Date Status Note LastModified by Organization Details LastModified Time blood pressure monitor [id number] USE TO CHECK BLOOD PRESSURE. Goal IS LESS THAN 140/90 active Not Available Not Available No t Available quetiapine 25 mg tablet TAKE 1 TABLET BY MOUTH AT NOON active Not Available Not Available No t Available cyclobenzapr ine 10 mg tablet TAKE 1 TABLET BY MOUTH EVERYDAY AT BEDTIME active Not Available Not Available No t Available buspirone 5 mg tablet TAKE 1 TABLET BY MOUTH 3 TIMES A DAY NEEDED FOR ANXIETY active Not Available Not Available Not Available bupropion HCl SR 150 mg tablet,12 hr sustained-re lease active Not Available Not Available Not Available prednisone 10 mg tablet 6 tab PO QD x 2 day then 5 tab PO QD x 2 day 4 tab PO QD x2 day then 3 tab PO QD x 2 day then 2 tab PO QD x 2 day then 1 tab PO QD x 2 day active Not Available Not Available No t Available nabumetone 750 mg tablet TAKE 1 TABLET(S) 2 TIMES A DAY BY ORAL ROUTE WITH FOOD active Not Available Not Available No t Available albuterol sulfate 2.5 mg/3 mL (0.083 %) solution for nebulization active Not Available Not Available Not Available trazodone 50 mg tablet TAKE 1 TABLET BY MOUTH AT BEDTIME active Not Available Not Available No t Available atorvastatin 10 mg tablet active Not Available Not Available Not Available azithromycin 250 mg tablet TAKE 2 TABLETS BY MOUTH TODAY, THEN TAKE 1 TABLET DAILY FOR 4 DAYS DIRECTED active Not Available Not Available No t Available ibuprofen 800 mg tablet TAKE 1 TABLET BY MOUTH EVERY DAY WITH FOOD active Not Available Not Available No t Available meloxicam 15 mg tablet TAKE 1 TABLET EVERY DAY BY ORAL ROUTE WITH FOOD. active Not Available Not Available No t Available ondansetron HCl 4 mg tablet TAKE 1 TABLET BY MOUTH EVERY 8 HOURS NEEDED FOR NAUSEA active Not Available Not Available No t Available prednisone 20 mg tablet TAKE 1 TABLET BY MOUTH THREE TIMES DAILY FOR 5 DAYS THEN TAKE 1 TABLET TWICE DAILY FOR 5 DAYS THEN TAKE 1 TABLET IN THE MORNING FOR 5 DAYS active Not Available Not Available N ot Available clonazepam 0.5 mg tablet TAKE 1 TABLET (0.5 MG) BY MOUTH IF NEEDED EACH DAY FOR ANXIETY FOR UP TO 7 DAYS. active Not Available Not Available No t Available atenolol 25 mg tablet TAKE 1 TABLET BY MOUTH TWICE A DAY active Not Available Not Available No t Available fexofenadine 180 mg tablet TAKE 1 TABLET BY MOUTH EVERY DAY active Not Available Not Available No t Available sildenafil 25 mg tablet active Not Available Not Available Not Available tramadol 50 mg tablet TAKE 1 TABLET EVERY 4 TO 6 HOURS BY MOUTH NEEDED FOR PAIN MAX 6 PER DAY active Not Available Not Available No t Available acetaminophe n 500 mg tablet TAKE 2 TABLETS BY MOUTH 3 TIMES A DAY NEEDED FOR PAIN active Not Available Not Available No t Available triamcinolon e acetonide 0.1 % topical cream APPLY TOPICALLY IF NEEDED IN THE MORNING AND AT BEDTIME (PAIN AND SWELLING). active Not Available Not Available N ot Available ciclopirox 8 % topical solution APPLY TOPICALLY EVERY DAY TO THE AFFECTED AREA(S) PREFERABLY AT BEDTIME OR 8 HOURS BEFORE WASHING active Not Available Not Available No t Available meloxicam 7.5 mg tablet TAKE 1 TABLET TWICE A DAY BY ORAL ROUTE BEFORE MEALS FOR 30 DAYS. active Not Available Not Available No t Available amoxicillin 875 mg tablet active Not Available Not Available Not Available hydromorphon e 2 mg tablet TAKE 1-2 TABLET(S) EVERY 4-6 HOURS BY ORAL ROUTE NEEDED FOR PAIN, MAX 6 A DAY active Not Available Not Available Not Available citalopram 20 mg tablet TAKE 1/2 TABLET BY MOUTH ONCE A DAY X4 DAYS THEN 1 TABLET DAILY DO NOT TAKE HYDROXYZINE . active Not Available Not Available No t Available methocarbamo l 750 mg tablet TAKE 1 TABLET BY MOUTH EVERY 8 HOURS FOR 10 DAYS active Not Available Not Available No t Available econazole nitrate 1 % topical cream APPLY TOPICALLY IN THE MORNING active Not Available Not Available No t Available prednisone 50 mg tablet TAKE 1 TABLET BY MOUTH EVERY DAY*NEED TO CALL WC* active Not Available Not Available No t Available lidocaine 5 % topical patch APPLY 1 PATCH TOPICALLY EVERY MORNING. REMOVE AND DISCARD PATCH WITHIN 12 HOURS DIRECTED active Not Available Not Available No t Available docusate sodium 100 mg capsule TAKE 1 CAPSULE (100 MG TOTAL) BY MOUTH TWICE A DAY NEEDED FOR CONSTIPATIO N FOR UP TO 10 DAYS active Not Available Not Available No t Available hydroxyzine HCl 25 mg tablet TAKE 1 TABLET BY MOUTH FOUR TIMES A DAY NEEDED FOR ANXIETY active Not Available Not Available Not Available gabapentin 100 mg capsule active Not Available Not Available Not Available ibuprofen 600 mg tablet TAKE 1 TABLET BY MOUTH FOUR TIMES A DAY FOR 5 DAYS active Not Available Not Available N ot Available zolpidem 10 mg tablet TAKE 1 TABLET BY MOUTH EVERY DAY AT BEDTIME NEEDED active Not Available Not Available No t Available methylpredni solone 4 mg tablets in a dose pack TAKE 6 TABLETS ON DAY 1 DIRECTED ON PACKAGE AND DECREASE BY 1 TAB EACH DAY FOR A TOTAL OF 6 DAYS active Not Available Not Available No t Available fluticasone propionate 50 mcg/actuatio n nasal spray,suspen rebecca SPRAY 1-2 PUFFS IN EACH NOSTRIL IN THE MORNING . active Not Available Not Available No t Available sertraline 50 mg tablet TAKE 1/2 TABLET BY MOUTH EVERY DAY FOR 7 DAYS THEN INCREASE TO 1 TABLET DAILY AT BEDTIME active Not Available Not Available No t Available doxycycline hyclate 100 mg tablet TAKE 1 TABLET BY MOUTH TWICE DAILY FOR 7 DAYS active Not Available Not Available No t Available loratadine 10 mg tablet TAKE 1 TABLET BY MOUTH EVERY DAY active Not Available Not Available No t Available naproxen 500 mg tablet TAKE 1 TABLET BY MOUTH TWICE A DAY WITH FOOD active Not Available Not Available No t Available diazepam 5 mg tablet TAKE 1 TABLET TWICE A DAY NO DRIVING active Not Available Not Available N ot Available Ventolin HFA 90 mcg/actuatio n aerosol inhaler INHALE 2 PUFFS EVERY 6 HOURS IF NEEDED FOR WHEEZING. active Not Available Not Available No t Available oxycodone 5 mg tablet TAKE 1 TABLET (5 MG TOTAL) BY MOUTH EVERY 4 HOURS. active Not Available Not Available No t Available escitalopram 5 mg tablet TAKE 1 TABLET BY MOUTH DAILY FOR 1 WEEK AND THEN INCREASE TO 2 TABLETS DAILY IF TOLERATED active Not Available Not Available No t Available duloxetine 30 mg capsule,amy yed release TAKE 1 CAPSULE (30 MG) BY MOUTH IN THE MORNING. DO NOT CRUSH OR CHEW. active Not Available Not Available No t Available Flovent HFA 110 mcg/actuatio n aerosol inhaler INHALE 1 PUFF BY MOUTH IN THE MORNING AND AT BEDTIME. RINSE MOUTH WITH WATER AFTER USE FOR AFTERTASTE AND INCIDENCE OF CANDIDIASIS . DO NOT SWALLOW active Not Available Not Available No t Available tizanidine 2 mg capsule 1 capsule PO at night prn muscle spasms 2022 active Not Available Not Available Not Avai lable Pulmicort Flexhaler 180 mcg/actuatio n breath activated INHALE 2 PUFFS BY MOUTH IN THE MORNING AND AT BEDTIME. RINSE MOUTH WITH WATER AFTER USE FOR AFTERTASTE AND INCIDENCE OF CANDIDIASIS . DO NOT SWALLOW active Not Available Not Available No t Available blood pressure test kit-large cuff USE TO CHECK BLOOD PRESSURE EVERY MORNING active Not Available Not Available No t Available Combivent Respimat 20 mcg-100 mcg/actuatio n solution for inhalation active Not Available Not Available N ot Available Vitals Date Recorded Body height Body weight Provider Name and Address Organization Details Last Updated DateTime 06/15/2023 170.2 cm 080627.8 g Not Available Capsule 06/05 11:21:45 Social History Question Answer Notes LastModified by Organizat ion Details LastModified Time Tobacco Smoking Status Never Smoker Fracisco bourgeois [facility] - [facility] [place] 05/19/2020 16:45:05 What Is Your Level Of Alcohol Consumption? None Information not available 05/19/2020 Auto Related Injury? No Information not available 01/26/2023 Are You Currently Employed? No Information not available 05/19/2020 Who Is Your Employer? [employer] Information not available 05/19/2020 What Is Your Occupation? [email or web address] Information not available 05/19/2020 High Blood Pressure No Information not available 01/26/2023 Have You Had X-rays/imaging For Today's Condition? Yes Information not available 05/19/2020 Have You Had A Bone Density Screening? No Information not available 05/19/2020 Have You Recently Lost Or Gained Weight? Yes Information not available 05/19/2020 Swollen Feet? Yes Information not available 05/19/2020 Change In Bowel/bladder Habits? Yes Information not available 05/19/2020 Chronic Cough? No Informatio n not available 05/19/2020 Chronic Diarrhea? No Information not available 05/19/2020 Chest Pain? Yes Information n ot available 05/19/2020 Easy Bruising/Bleed ing? No Information not available 05/19/2020 Fever? No Information no t available 05/19/2020 Night Sweats? No Information not available 05/19/2020 Joint Pain? Yes Information n ot available 05/19/2020 Back Pain? Yes Information no t available 05/19/2020 Height 5'7 Information no t available 05/19/2020 Weight 220 Information no t available 05/19/2020 Have You Fallen In The Past Year? No Information not available 05/19/2020 Marital Status Informatio n not available 01/26/2023 Work Related Injury? Yes Information not available 01/26/2023 Sex: Unknown Functional Status None recorded. Mental Status None recorded. Family History Relationship Description Onset Age of this Age Resolved Age Notes LastModified by Organization Details LastModified Time Unspecified Relation Mixed anxiety and depressive disorder [email or web address] Not available 06/15 10:45:37 Unspecified Relation Diabetes mellitus [email or web address] Not available 2020 16:44:42 Medical History Condition Response Coronary Artery Disease N Gout N Anxiety/Depression Y Other N MRSA Y Head Trauma/Injury N Emphysema N Depression N COPD N Lung Disease N Pacemaker N Anxiety Disorder N Muscle, Joint, or Bone Problems Y sleep apnea N Arthritis N Serious Illness or Injuries N Blood Clot N Cancer N Stroke N Leg or Foot Ulcers N Neck Injury N High Cholesterol N Neurologic Disorder N Liver Disease N Organ Transplant N Rheumatoid Arthritis N Headaches N Kidney Disease N Allergies/Hayfever N Heart Problems N Thyroid Problems N Carpel Tunnel N Anemia N Ulcers N Heart Attack (HI) N Diabetes N Bleeding Disorder N Seizures/Epilepsy N Tuberculosis N AIDS/HIV N Asthma Y Peripheral Vascular Disease N Reflux/GERD N Hepatitis N Neuropathy N Heart Disease N Pulmonary Embolism N Hypertension N Osteoporosis N Past Encounters Encounter ID Performer Location Encounter Start Date Encounter Closed Date Diagnosis/Indication Diagnosis SNOMED-CT Code Diagnosis ICD10 Code Diagnosis Note [id number] Nam Carlson MD [facility] [place] [address] [place] [address] 05/15/2020 11:13:29 05/16/2020 10:55:34 Neck pain 69210791 M54.2 Strain of neck muscle 36 9393989 S16.1XXA Pain in th oracic spine 751951647 M54.6 Strain of thoracic region 39740137 S29.019A [id number] ALBINO PETIT MD [facility] [place] [address] [place] [address] 05/29/2020 11:24:30 05/30/2020 10:13:19 Cervical spondylosis without myelopathy 975904619 M47.812 Strain of neck muscle 36 4653567 S16.1XXA Myofascial pain syndrome of thoracic spine 3850205816 9101 M79.18 [id number] Jessie Villanueva [facility] [place] [address] [place] [address] 06/12/2020 11:22:39 06/13/2020 10:51:54 Neck pain 00970295 M54.2 Strain of neck muscle 36 1102428 S16.1XXA Pain in th oracic spine 228806469 M54.6 Strain of thoracic region 09301376 S29.019A [id number] ALBINO PETIT MD [facility] [place] [address] [place] [address] 07/15/2020 15:34:24 07/17/2020 11:43:20 Cervical spondylosis without myelopathy 516505596 M47.812 [id number] Nam Carlson MD [facility] [place] [address] [place] [address] 07/30/2020 14:51:54 07/31/2020 09:34:00 Myofascial pain syndrome of thoracic spine 9029703641 9101 M79.18 Neck pain 84907660 M54.2 Strain of neck muscle 36 7569891 S16.1XXA Pain in th oracic spine 303942474 M54.6 Strain of thoracic region 58062754 S29.019A [id number] ALBINO PETIT MD [facility] [place] [address] [place] [address] 08/14/2020 15:25:09 08/18/2020 11:26:04 Pain 81403968 R52 Myofascial pain 27522847 9 M79.18 [id number] Nam Carlson MD [facility] [address] [place] [address] 09/16/2020 10:52:53 09/18/2020 15:09:26 Myofascial pain syndrome of thoracic spine 7692709911 9101 M79.18 Neck pain 19919020 M54.2 Strain of neck muscle 36 0790653 S16.1XXA Pain in th oracic spine 078873535 M54.6 Strain of thoracic region 71505407 S29.019A [id number] ALBINO PETIT MD [facility] [place] [address] [place] [address] 09/23/2020 08:28:09 09/24/2020 08:48:10 Myofascial pain 879115828 M79.18 [id number] ALBINO PETIT MD [facility] [place] [address] [place] [address] 10/22/2020 11:03:18 10/29/2020 09:29:00 Myofascial pain syndrome of neck 875880304 M54.2 [id number] Nam Carlson MD [facility] [place] [address] [place] [address] 10/23/2020 10:49:35 10/24/2020 09:23:07 Myofascial pain syndrome of thoracic spine 7868390417 9101 M79.18 Neck pain 45260844 M54.2 Strain of neck muscle 36 2651957 S16.1XXA Pain in th oracic spine 066256514 M54.6 Strain of thoracic region 20282426 S29.019A [id number] Nam Carlson MD [facility] [place] [address] [place] [address] 12/08/2020 08:54:32 12/09/2020 10:13:47 Myofascial pain syndrome of thoracic spine 2491614456 9101 M79.18 Neck pain 87845186 M54.2 Strain of neck muscle 36 2081236 S16.1XXA Pain in th oracic spine 769370355 M54.6 Strain of thoracic region 43323881 S29.019A [id number] [facility] [address] [place] [address] 12/30/2020 14:58:46 12/31/2020 09:35:11 Myofascial pain syndrome of thoracic spine 7064520829 9101 M79.18 Neck pain 76016823 M54.2 Strain of neck muscle 36 7331879 S16.1XXA Pain in th oracic spine 416554751 M54.6 Strain of thoracic region 77220092 S29.019A Cervical radiculopathy 45097123 M54.12 [id number] Nam Carlson MD [facility] [address] [place] [address] 01/14/2021 13:29:10 01/16/2021 10:32:37 Myofascial pain syndrome of thoracic spine 0587023870 9101 M79.18 Neck pain 89787509 M54.2 Strain of neck muscle 36 7817922 S16.1XXA Pain in th oracic spine 418049807 M54.6 Strain of thoracic region 65197439 S29.019A Cervical radiculopathy 25189227 M54.12 [id number] Vince Mendez MD [facility] [place] [address] [place] [address] 02/05/2021 13:07:12 02/06/2021 10:15:25 Cervical radiculopathy 83014395 M54.12 [id number] Nam AldoMD [facility] [address] [place] [address] 02/17/2021 15:36:37 02/18/2021 10:24:48 Myofascial pain syndrome of thoracic spine 4202436554 9101 M79.18 Neck pain 61155074 M54.2 Strain of neck muscle 36 9069346 S16.1XXA Pain in th oracic spine 636585467 M54.6 Strain of thoracic region 57208530 S29.019A Cervical radiculopathy 20393495 M54.12 Spinal lj nosis in cervical region 54294790 M48.02 [id number] Nam Carlson MD [facility] [address] [place] [address] 04/24/2021 13:08:27 04/27/2021 12:21:34 Myofascial pain syndrome of thoracic spine 5482774478 9101 M79.18 Neck pain 02687521 M54.2 Strain of neck muscle 36 7130426 S16.1XXA Pain in th oracic spine 527116985 M54.6 Strain of thoracic region 04487652 S29.019A Cervical radiculopathy 63850580 M54.12 Spinal lj nosis in cervical region 83080222 M48.02 [id number] Nam Carlson MD [facility] [address] [place] [address] 10/14/2021 13:05:18 10/15/2021 13:14:15 Myofascial pain syndrome of thoracic spine 7989802748 9101 M79.18 Neck pain 99953648 M54.2 Strain of neck muscle 36 2604501 S16.1XXA Pain in th oracic spine 569224243 M54.6 Strain of thoracic region 28291629 S29.019A Cervical radiculopathy 49571782 M54.12 Spinal lj nosis in cervical region 41879548 M48.02 Left side sciatica 81726 98135 15831 M54.32 Lumbar radiculopathy 128 240065 M54.16 [id number] MD [facility] [place] [address] [place] [address] 11/17/2021 14:32:03 11/19/2021 12:41:54 Myofascial pain syndrome of thoracic spine 0669417639 9101 M79.18 Neck pain 51823296 M54.2 Strain of neck muscle 36 2486658 S16.1XXA Pain in th oracic spine 137706626 M54.6 Strain of thoracic region 91962750 S29.019A Cervical radiculopathy 62944449 M54.12 Spinal lj nosis in cervical region 72501394 M48.02 Left side sciatica 52981 80156 45953 M54.32 Lumbar radiculopathy 128 582207 M54.16 [id number] Anushka Momin i, [facility] [place] [address] [place] [address] 09/09/2022 13:13:23 09/09/2022 17:07:44 Change of dressing 91533048 Z48.00 Cervical radiculopathy 44535045 M54.12 [id number] Nam Carlson MD [facility] [place] [address] [place] [address] 09/16/2022 08:07:53 09/17/2022 13:12:18 Myofascial pain syndrome of thoracic spine 1630726746 9101 M79.18 Neck pain 03431999 M54.2 Strain of neck muscle 36 6346847 S16.1XXA Pain in th oracic spine 735342938 M54.6 Strain of thoracic region 75732362 S29.019A Cervical radiculopathy 26782165 M54.12 Spinal lj nosis in cervical region 57653356 M48.02 Left side sciatica 61082 21942 56609 M54.32 Lumbar radiculopathy 128 190008 M54.16 [id number] Nam Carlson MD [facility] [place] [address] [place] [address] 01/26/2023 10:31:34 02/02/2023 14:45:31 Myofascial pain syndrome of thoracic spine 4909202136 9101 M79.18 Neck pain 84808099 M54.2 Strain of neck muscle 36 0361814 S16.1XXA Pain in th oracic spine 226169779 M54.6 Strain of thoracic region 10957826 S29.019A Cervical radiculopathy 27547413 M54.12 Spinal lj nosis in cervical region 43145052 M48.02 Left side sciatica 72654 51864 39097 M54.32 Lumbar radiculopathy 128 463902 M54.16 [id number] Nam Carlson MD [facility] [address] [place] [address] 03/09/2023 10:32:04 03/11/2023 15:55:06 Myofascial pain syndrome of thoracic spine 4004445776 9101 M79.18 Neck pain 78037951 M54.2 Strain of neck muscle 36 5799967 S16.1XXA Pain in th oracic spine 589275361 M54.6 Strain of thoracic region 92486955 S29.019A Cervical radiculopathy 71445448 M54.12 Spinal lj nosis in cervical region 32483707 M48.02 Left side sciatica 24312 01727 34082 M54.32 Lumbar radiculopathy 128 666886 M54.16 Bilateral carpal tunnel syndrome 0457093861 8211144 G56.03 [id number] Nam Carlson MD [facility] [address] [place] [address] 06/16/2023 10:45:13 06/17/2023 15:34:29 Myofascial pain syndrome of thoracic spine 6093505997 9101 M79.18 Neck pain 85042941 M54.2 Strain of neck muscle 36 3842075 S16.1XXA Pain in th oracic spine 561077610 M54.6 Strain of thoracic region 57989790 S29.019A Cervical radiculopathy 07677730 M54.12 Spinal lj nosis in cervical region 37579464 M48.02 Left side sciatica 02909 13019 35656 M54.32 Lumbar radiculopathy 128 030184 M54.16 Bilateral carpal tunnel syndrome 2964178103 5823820 G56.03 Health Concerns Section Related Observation LastModified by Organization Detai ls LastModified Time None Recorded Concern Status LastModified by Organization Details LastModified Time None Recorded Advance Directives Directive None Recorded Payers Encounter Date Sequence Insurance Name Policy Number Policy Fowler Covered Member ID Fowler Member ID Guarantor Name 09/09/2022 1 [place] [facility] Tc Malone [id number] Tc Malone 09[facility]16/20[facility]20[facility] [employer] [facility] Tc Malone 03/09/2023 [facility]/16/2023 [facility] [employer] [facility] Tc Malone Notes Date Note Type Note Provider Name and Address Organization Details Recorded Time 3 text/html Diagnosis:Left active C7, C8 radiculopathyNeck painThoracic painC4-5 bilateral, C5-6 right, C6-7 bilateral, left C7-T1 foraminal stenosisLeft sciaticaLeft cubital tunnel syndrome Date of Injury:01/17/2020 Disposition:Out of work. Plan for C6/7 and C7/T1 total disc replacement after updating his MRI History of Present Illness:Mr. Malone returns with continued neck pain and left radicular pain to the mid hand. 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 This has been present for many many months. He has been out of work. He is scheduled for a C6-7, C7-T1 total disc replacement however has had no recent MRI. His latest study is from 04/15/2021. He has no lower extremity numbness or weakness. There is no bowel bladder dysfunction or perineal numbness. Eleuterio Espino [facility] [place], [address], [facility] [place] 09/16/2022 08:43:41 3 text/html Diagnosis:Left active C7, C8 radiculopathyNeck painThoracic painC4-5 bilateral, C5-6 right, C6-7 bilateral, left C7-T1 foraminal stenosisLeft sciaticaLeft cubital tunnel syndrome Previous Surgeries: C6-7, C7-T1 TDR, 12/30/2022 Date of Injury: 01/17/2020 Disposition: To be seen in follow-up to physical therapy in 6 weeks. Patient will remain out of work until follow-up. Patient will need transportation to his follow-up visit. History of Present Illness: Mr. Malone returns 3-1/2 weeks s/p the above-mentioned surgery. He states his neck and left arm radicular pain have resolved. He has noted some numbness in the 1st webspace of the right hand however intermittently. He denies any weakness. There is no hand clumsiness. There is no gait disturbance or bowel/bladder dysfunction. No fevers, chills or night sweats. He states his dysphagia has significantly improved as well. Nam Carlson MD [address] [place], [address], [facility] [employer] [facility] 01/26/2023 11:28:51 4 text/html Diagnosis:Left active C7, C8 radiculopathyNeck painThoracic painC4-5 bilateral, C5-6 right, C6-7 bilateral, left C7-T1 foraminal stenosisLeft sciaticaBilateral cubital tunnel syndrome Previous Surgeries: C6-7, C7-T1 TDR, 12/30/2022 Date of Injury: 01/17/2020 Disposition: To be seen in follow-up to physical therapy in 6 weeks. Patient will begin nocturnal splinting History of Present Illness: Mr. Malone returns three months s/p the above-mentioned surgery. He states his neck and left arm radicular pain have resolved. He has noted some numbness in both radial 3 digits. This is primarily at night. He denies any weakness. There is no hand clumsiness. There is no gait disturbance or bowel/bladder dysfunction. No fevers, chills or night sweats. He states his dysphagia has significantly improved as well. Nam Carlson MD [address] [place], [address], [facility] [employer] [facility] 03/09/2023 13:02:42 4 text/html Diagnosis:Left active C7, C8 radiculopathyNeck painThoracic painC4-5 bilateral, C5-6 right, C6-7 bilateral, left C7-T1 foraminal stenosisLeft sciaticaBilateral cubital tunnel syndrome Previous Surgeries: C6-7, C7-T1 TDR, 12/30/2022 Date of Injury: 01/17/2020 Disposition: Continue physical therapy. Follow up in 6 months History of Present Illness: Mr. Malone returns just under 6 months s/p the above-mentioned surgery. He states his neck and left arm radicular pain have resolved. At his last visit we recommended starting physical therapy which he did start, but states that he eventually had to put a hold on physical therapy because his mother he has been dealing with that primarily at this point. He does still continue to have numbness and tingling in both of his radial 3 digits. This primarily occurs over night. At his last visit we prescribed him bilateral wrist splints for carpal tunnel syndrome and he states that the splints do help somewhat but he is still experiencing the numbness and tingling on a near nightly basis at this point. He continues to deny any gait disturbance or bowel or bladder dysfunction. Denies any fevers, chills, night sweats. BERNIE TINEO [address], [place], [address], [facility] Sports Medicine [place] 06/16/2023 11:33:40
--- OUTSIDE RECORDS SUMMARY | 2024-06-09 17:10 | XMS_ITS | Encounter Summary ---
Author Organization [employer] Address [address] [facility] 7t [place] [address] Care Team Providers Care Flag Signaler Name Role Phone Carolee Shea MD Primary Care Provider [phone]- [phone] Reason for Visit * Reason Onset Date Comments Lab Orders 06/07/2024 Encounter Details Date Type Department Care Team (Late st Contact Info) Description 06/07/2024 Telephone [facility] [address] [place] [address] Carolee Shea MD [address] [place] [address] Lab Orders Social History Tobacco Use Types Packs/Day Years [...] as of this encounter Miscellaneous Notes * Telephone Encounter - Abiola Mckinney RN - 06/08/2024 9:54 AM EDT TC to pt x2. First call someone picked up and breathing could be heard on the other line but no onewould answer RN. Second attempt, no answer. Voicemail left for pt to call clinic back with clinic number. * Telephone Encounter - David Osborn - 06/07/2024 4:03 PM EDT Tc from pt stating family member was diagnosed with mono and pt was advised to have lab work to have himself checked. If any questions you can contact pt at [phone]. documented in this encounter Plan of Treatment Not on file documented as of this encounter Visit Diagnoses Not on filedocumented in this encounter Additional Health Concerns Assessment Noted Time PHQ-9 Depression Total Score: 8 05/13/19 24 9:14 AM EST documented as of this encounter Care Teams Flag Signaler Relationship Specialty Start Date End Date Carolee Shea MD [address] [place] [address] PCP - General Internal Medicine 10/07/23 documented as of this encounter
--- OUTSIDE RECORDS SUMMARY | 2024-06-09 17:10 | XMS_ITS | Encounter Summary ---
Author Organization [employer] Address 75 [facility] 7t [place] [address] Care Team Providers Care Solderer Assembly Repair Name Role Phone Carolee Shea MD Primary Care Provider [phone]- [phone] Encounter Details Date Type Department Care Team ([facility] st Contact Info) Description 10/07/2023 Orders Only [facility]EDS [address] [place], [place] [id number] Carolee Shea MD [address] [place] [address] Inverse psoriasis; Psoriasis Social History Tobacco Use Types Packs/Day Years [...] AM EDT documented as of this encounter Plan of Treatment Not on file documented as of this encounter Visit Diagnoses Diagnosis Inverse psoriasis Other psoriasis Psoriasis Other psoriasis documented in this encounter Additional Health Concerns Assessment Noted Time PHQ-9 Depression Total Score: 8 05/13/19 9:14 AM EST documented as of this encounter Care Teams Solderer Assembly Repair Relationship Specialty Start Date End Date Carolee Shea MD [address] [place] [address] PCP - General Internal Medicine 10/07/23 documented as of this encounter
--- OUTSIDE RECORDS SUMMARY | 2024-06-09 17:10 | XMS_ITS | Encounter Summary ---
Author Organization [employer] Address [address] [place] [address] [address] [place] [address] Care Team Providers Care Supervisor Adult Education Name Role Phone Carolee Shea MD Primary Care Provider [phone] Reason for Referral * Consultation (Routine) - Authorized Specialty Diagnoses / Procedures Referred By Augusta busch Referred To Contact Podiatry Diagnoses Onychomycosis Carolee Shea MD [address] [place] [address] Phone: tel: fax: Lencho Cheung DPM [address] [place] [address] Phone: tel: fax: Referral ID Status Reason Start Date Expiration Date Visits Requested Visits Authorized [id number] Authorized Specialty Services Required 04/04/2024 04/04/2025 1 1 Encounter Details Date Type Department Care Team (Late st Contact Info) Description 04/04/2024 Orders Only [facility] & PEDS [address] [place], [place] [phone] Carolee Shea MD [address] [place], [place] [phone] Onychomycosis (Primary Dx) Social History Tobacco Use Types [...] as of this encounter Plan of Treatment Scheduled Referrals Name Type Priority Associated Diagnoses Orde r Schedule Referral to Podiatry Outpatient Referral Routine Onychomycosis Expected: 04/04/2024 (Approximate), Expires: 04/04/2025 documented as of this encounter Visit Diagnoses Diagnosis Onychomycosis- Primary Dermatophytosis of nail documented in this encounter Additional Health Concerns Assessment Noted Time PHQ-9 Depression Total Score: 8 05/13/19 24 9:14 AM EST documented as of this encounter Care Teams Supervisor Adult Education Relationship Specialty Start Date End Date Carolee Shea MD [address] [place] [address] PCP - General Internal Medicine 10/07/23 documented as of this encounter
--- OUTSIDE RECORDS SUMMARY | 2024-06-09 17:10 | XMS_ITS | Clinical Summary ---
Author Organization [address] [facility] Address [address] [place] [address] Phone Care Team Providers Care Skin Therapist Name Role Phone Carolee Shea MD Primary Care Provider [phone] [phone] Social History Tobacco Use Types Packs/Day Years Used Date Smoking Tobacco: Never Assessed Sex and Gender Information Value Date Recorded Sex Assigned at Not on file Legal Sex Male 11:56 AM EST Gender Identity Not on file Sexual Orientation Not on file Plan of Treatment Upcoming Encounters Date Type Department Care Team ([facility] Contact Info) Description 07/02/2024 2:15 PM EDT Consult Orthopedic Surgery - [place] [address] [phone] Lencho Cheung, DPM [address] [address] Health Maintenance Due Date Last Done Comments DTaP,Tdap,and Td Vaccines (1 - Tdap) 08/08/1987 Hepatitis B Vaccines (1 of 3 - 19+ 3-dose series) 08/08/1987 Pneumococcal Vaccine: 50+ Ye ars (1 of 1 - PCV) 2018 Zoster Vaccines (1 of 2) 2018 COVID-19 Vaccine (2023-2 5 season) 2023 Influenza Vaccine (#1) 2023 Cholesterol Screening (Lipid Panel) 04/23/2024 Colorectal Cancer Screening: Colonoscopy 04/23/2024 Depression Screening 04/23/2024 HIV Screening 04/23/2024 Hepatitis C Screening 04/23/2024 Social Influencers of Health Screening 04/23/2024 HIB Vaccines Aged Out No longer eligi [...] on patient's age to complete this topic MMR Vaccines Aged Out No longer eligi ble based on patient's age to complete this topic Meningococcal ACWY Vaccine Aged Out N o longer eligible based on patient's age to complete this topic Meningococcal B Vacine Aged Out No lo nger eligible based on patient's age to complete this topic Pneumococcal Vaccine: Pediat rics (0 to 5 Years) and At-Risk Patients (6 to 64 Years) Aged Out No longer eligible b ased on patient's age to complete this topic RSV Immunization Patients Un reyes 20 months Aged Out No longer eligible b ased on patient's age to complete this topic Varicella Vaccines Aged Out No longer eligible based on patient's age to complete this topic Insurance MEDICAID - [place] Care Teams Skin Therapist Relationship Specialty Start Date End Date Carolee Shea MD [address] [place] [address] PCP - General Internal Medicine 04/23/24
--- OUTSIDE RECORDS SUMMARY | 2024-06-09 17:10 | XMS_ITS | Patient Health Record ---
Author Organization [facility] Address [address] [place] [phone] Care Team Providers Care Senior Commissary Agent Name Role Phone Kylee Guerra Primary Care Provider Félix Crowley Unavailable [phone] Allergies Allergen (clinical drug ingredient) Drug/Non Drug Allergy documented on EMR Reaction Allergy Type Onset Date Status acetaminophen / oxycodone Percocet Unknown Drug Allergy Active Reason For Referral No Information Medications Medication SIG (Take, Route, Fr equency, Duration) Notes Start Date End Date Status ibuprofen Active clonazePAM Active traMADol HCl 50 MG 1 tablet as needed O rally Once a day Active Immunizations Vaccine Route Administration Date Status Comme nts Influenza Unknown 11/05/2021 Administered Social History Tobacco Use: Social History Observation Description Date Details (start date - stop date) Never Smoker NA - NA Tobacco Use/Smoking Question Answer Notes Patient is a nonsmoker Alcohol Screen Question Answer Notes Did you have a drink containing alcohol in the p ast year? No Points 0 Interpretation Negative Section Notes: Nonsmoker; no alcohol Problems Problem Type SNOMED Code ICD Code Onset Dates Problem Status W/U Status Risk Notes Problem 795620625 Colon cancer screening (Z12.11) Active confirmed Problem 803852575 History of adenomatous polyp of colon (Z86.010) Active confirmed Problem 788832021440727 Preprocedural examination (Z01.818) Active confirmed Encounters Encounter Location Date Provider Diagnosis [facility] [address] [place] [phone] 09/06/2023 Félix Matt [facility] [address] [place] [phone] 01/17/2024 Félix Matt [facility] [address] [place] [phone] 02/22/2024 Félix Matt Plan Of Treatment Future Test Test Name Order Date COLONOSCOPY 04/22/2022 Insurance Providers Payer Name Payer Address Payer Phone Subscriber Number Group Number Insured Name Patient Relationship to Insured Coverage Start Date Coverage End Date MEDICAID OF [employer] [address] [place] [id number] AAKASH KENT Self - patient is the insured Medical (General) History Medical History History ICD Code Seasonal allergies Denies [place],DM,CVA,Lung disease,renal dise ase Anxiety Colonoscopy 02/2014 with rem oval of a small tubular adenoma with Dr. Mccrary Neck injury with 2 discs--se eing Dr. Rose--will probably have surgery later in 2022 Surgical History Surgery Date(Month/Year) Appendectomy
--- OUTSIDE RECORDS SUMMARY | 2024-06-09 17:10 | XMS_ITS ---
Author Organization [facility] Address [address] [place] [phone] Care Team Providers Care Manager Epic Name Role Phone Kylee Guerra Primary Care Provider Félix Crowley [phone] REASON FOR VISIT Patient presents today for a colon screening Encounters Encounter Location Date Provider Diagnosis [facility] [address] [place] [phone] 02/22/2024 Félix Matt Plan Of Treatment No Information Progress Notes * YOLI, DEDRICKESTEFANIDOB:1970 (53 yo M)Acc No.[id number]:02/22/2024 Progress Notes Patient:?AAKASH KENT Provider:?Félix Matt MD :1970???Age:53 Y???Sex:Male Carlos e:02/22/2024 Address:[address] [place], [place] [id number] Pcp:Kylee Gracia Subjective: * Chief Complaints: * ???1. Patient presents today for a colon screening. * Medical History:? Objective: * Vitals:? Assessment: Plan: * Treatment: * * The named appointment provid er may or may not be the originator of this progress note, and it is not deemed complete until electronically signed by the appointment provider. Sign off status: Pending * Provider:?Félix Matt MD Date:? 024 Generated for Gisele saxena/Mariana/eTransmitting on:?06/09/2024 05:10 PM EDT
--- OUTSIDE RECORDS SUMMARY | 2024-06-09 17:10 | XMS_ITS | Encounter Summary ---
Author Organization [employer] Address [address] [facility] 7 [place] [address] Care Team Providers Care Certified Massage Therapist Name Role Phone Carolee Shea MD Primary Care Provider [phone]- [phone] Reason for Visit * Reason Onset Date Comments Med Refill 12/08/2023 Encounter Details Date Type Department Care Team ([facility] st Contact Info) Description 12/08/2023 Telephone [facility] [address] [place] [address] Carolee Shea MD [address] [place] [address] Med Refill Social History Tobacco Use Types Packs/Day Years [...] is your housing situation today? I have hemalmary lock 07/19/[address] you [...] encounter Miscellaneous Notes * Telephone Encounter - Nneka Zavala - 12/08/2023 2:47 PM EDT TC from pt requesting medication refill. Medications needing refill : clonazePAM (KlonoPIN) 0.5 MG tablet To be sent to: [id number] - [place] - [facility] documented in this encounter Plan of Treatment Not on file documented as of this encounter Visit Diagnoses Not on filedocumented in this encounter Additional Health Concerns Assessment Noted Time PHQ-9 Depression Total Score: 8 05/13/19 9:14 AM EST documented as of this encounter Care Teams Certified Massage Therapist Relationship Specialty Start Date End Date Carolee Shea MD [address] [place] [address] [place] [address] PCP - General Internal Medicine 10/07/23 documented as of this encounter
--- OUTSIDE RECORDS SUMMARY | 2024-06-09 17:10 | XMS_ITS | Encounter Summary ---
Author Organization [employer] Address [address] [place] [address] 7 [place] [address] Care Team Providers Care Lead Electrical Controls Engineer Name Role Phone Kylee Guerra MD Primary Care Pro vider Carolee Shea MD Primary Care Provider [phone]- [phone] Reason for Visit * Reason Onset Date Comments Durable Medical Equipment 05/26/2023 Encounter Details Date Type Department Care Team (Late st Contact Info) Description 05/26/2023 Telephone [facility]INE [address] [place] [address] Kylee Guerra MD [address] [place] [address] Durable Medical Equipment Social History Tobacco Use Types Packs/Day Years [...] is your housing situation today? I have housing today, but I am worried about losing housing in the future 12/13/[address] you li ve. Do you have problems with any of the following? Pests such as bugs, ants, or mice 12/13/2022 Food Insecurity Answer Date Recorded Within the past 12 months, y ou worried that your food would run out before you got money to buy more: Sometimes True 2022 Within the past 12 months,th e food you bought just didn't last and you didn't have enough money to get more: Sometimes True 12/27/2022 Transportation Answer Date Recorded In the past 12 months, has l ack of transportation kept you from medical appts, meetings, work or from getting things needed for daily living? No 12/27/2022 Utilities Answer Date Recorded In the past [...] encounter Miscellaneous Notes * Telephone Encounter - Jami Blum RN - 05/27/2023 12:42 PM EDT TC placed to patient regarding message below from Dr. Sridhar Garcia. Patient states that he will have his girlfriend sweet pickled fruit maker this new script and also that he will come in to the [facility] this afternoon to get checked out. After speaking with victims advocate clerk/specialist this morning, he feels this is the best plan. No other questions, needs, or concerns at this time. Routing message to PCP so she is aware. ----- Message from Kylee Garcia MD sent at 05/27/2023 12:28 PM EDT ----- Please can you inform pt that asmanex is in back order but sent instead pulmicort to use 2 puffs BID ,thanks I he is actively symptomatic as I saw message pt will need to go to [facility] for evaluation thanks * Telephone Encounter - Alicia Lopes - 05/27/2023 11:25 AM EDT PLEASE READ MESSAGE BELOW AND ADVICE, IF AGREE PROVIDE NOTES AND DX TO SUPPORT THE NEED. * Telephone Encounter - Autumn Todd - 05/26/2023 3:46 PM EDT Tc from pt requesting a script for a nebulizer due to inhaler being on hold at the pharmacy. documented in this encounter Plan of Treatment Not on file documented as of this encounter Visit Diagnoses Not on filedocumented in this encounter Additional Health Concerns Assessment Noted Time PHQ-9 Depression Total Score: 8 05/13/19 9:14 AM EST documented as of this encounter Care Teams Lead Electrical Controls Engineer Relationship Specialty Start Date End Date Kylee Guerra MD [address] [place] [address] PCP - General Internal Medicine 08/06/22 10/06/23 Carolee Shea MD [address] [place] [address] PCP - General Internal Medicine 10/07/23 documented as of this encounter
--- OUTSIDE RECORDS SUMMARY | 2024-06-09 17:10 | XMS_ITS | Encounter Summary ---
Author Organization [employer] Address [address] [facility] 7 [place] [address] Care Team Providers Care Tile And Marble Setter Name Role Phone Carolee Shea MD Primary Care Provider [phone]- [phone] Reason for Visit * Reason Onset Date Comments Letter for School/Work 06/06/2024 Encounter Details Date Type Department Care Team ([facility] Contact Info) Description 06/06/2024 Telephone [facility] MED & PEDS [address] [place] [address] Carolee Shea MD [address] [place] [address] Letter for School/Work Social History Tobacco Use Types Packs/Day Years [...] encounter Miscellaneous Notes * Telephone Encounter - Mackenzie Arango RN - 06/06/2024 3:26 PM EDT Pt arrived to office to speak with nurse. Pt explained that was able to figure out work clearance form, and stated that employer needed TB test done within past year. Author advised T-Spot test performed September 2023, pt aware and was given printed out result and placed in pt hand. Advised pt to call office if additional questions arise. Pt thanked author and office, verbalized understanding and agreement with plan. * Telephone Encounter - Mackenzie Arango RN - 06/06/2024 1:44 PM EDT TC to pt. No answer. Pt voicemail identified pt. Message left informing pt of last TB test date saroj, instructing pt to reach out to [employer] due to orthopedics following and treating pt after injury and pt was scheduled for follow up on 06/05/24 with [employer], and advised to ask place of employment if they have a specific form to be completed for clearance or if employer has specific provider office/services for pre employment clearance assessments. Instructed pt to return call if they have additional questions. * Telephone Encounter - Luz Marina Hope - 06/06/2024 12:13 PM EDT Tc from pt requesting a letter to be able to start a new job [employer]emi . 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 Pt would also like to know if he has done any recent TB test if not will need to get one done. Please call to clarify. documented in this encounter Plan of Treatment Not on file documented as of this encounter Visit Diagnoses Not on filedocumented in this encounter Additional Health Concerns Assessment Noted Time PHQ-9 Depression Total Score: 8 05/13/19 9:14 AM EST documented as of this encounter Care Teams Tile And Marble Setter Relationship Specialty Start Date End Date Carolee Shea MD [address] [place] [address] PCP - General Internal Medicine 10/07/23 documented as of this encounter
--- OUTSIDE RECORDS SUMMARY | 2024-06-09 17:10 | XMS_ITS | Encounter Summary ---
Author Organization [employer] Address [address] [place] [address] 7 [place] [address] Care Team Providers Care Paver Name Role Phone Kylee Guerra MD Primary Care Pro vider Carolee Shea MD Primary Care Provider [phone]- [phone] Reason for Visit * Reason Onset Date Comments Hospital Follow-up 07/14/2023 Encounter Details Date Type Department Care Team (Late st Contact Info) Description 07/14/2023 Telephone [facility] MEDICINE [address] [place] [address] Kylee Guerra MD [address] [place] [address] Hospital Follow-up Social History Tobacco Use Types Packs/Day Years [...] encounter Miscellaneous Notes * Telephone Encounter - Autumn Todd - 07/19/2023 10:32 AM EDT Tc from pt returning call to schedule HDF appointment. Please contact pt at [phone] * Telephone Encounter - Autumn Todd - 07/14/2023 4:24 PM EDT Tc from pt requesting a HDF appt. Hospital: [facility] Date of admission: 07/10 Discharge date: 07/13 Diagnosed: acute hypoxic respiratory failure, asthma exacerbation Please contact pt at [phone] documented in this encounter Plan of Treatment Not on file documented as of this encounter Visit Diagnoses Not on filedocumented in this encounter Additional Health Concerns Assessment Noted Time PHQ-9 Depression Total Score: 8 05/13/19 24 9:14 AM EST documented as of this encounter Care Teams Paver Relationship Specialty Start Date End Date Kylee Guerra MD [address] [place] [address] PCP - General Internal Medicine 08/06/22 10/06/23 Carolee Shea MD [address] [place] [address] PCP - General Internal Medicine 10/07/23 documented as of this encounter
--- OUTSIDE RECORDS SUMMARY | 2024-06-09 17:11 | XMS_ITS | Encounter Summary ---
Author Organization [employer] Address [address] [place] [address] 7 [place] [address] Care Team Providers Care Medical Science Liaison Name Role Phone Kylee Guerra MD Primary Care Pro vider Carolee Shea MD Primary Care Provider [phone] Reason for Visit * Reason Onset Date Comments Nurse Triage 12/27/2022 Encounter Details Date Type Department Care Team (Late st Contact Info) Description 12/27/2022 Telephone [facility] [address] [place] [address] Kylee Guerra MD [address] [place] [address] Nurse Triage Social History Tobacco Use Types Packs/Day Years Used Date Smoking Tobacco: Never Smokeless Tobacco: Never Alcohol Use Standard Drinks/Week Comments Never 0 (1 standard drink = 0.6 oz pure alcohol) hx of moderate alcohol use stopped 3 y ago Depression Answer Date Recorded Patient Health Questionnaire-9 Score 11 09/21/2022 Housing Stability Answer Date Recorded What is [...] Date Recorded Patient Health Questionnaire-2 Score 1 09/21/2022 Sex and Gender Information Value Date Recorded Sex Assigned at Male 01/04/2022 10:39 AM EDT Legal Sex Male 10:39 AM EDT Gender Identity Male 01/04/2022 10:39 AM EDT Sexual Orientation Choose not to disclose 2022 9:06 AM EDT documented as of this encounter Miscellaneous Notes * Telephone Encounter - Mireya Shabazz RN - 12/27/2022 3:25 PM EDT Called pt. girlfriend. She states that pt. Has been not taking his Duloxetine x 2 weeks. Pt. Was given a RX. For Gabapentin but, he never started it. Girlfriend states that last night pt. Was irritable and screaming and left the house and walked 8-10 blocks to his Mothers house which is Irrationalbehavior for pt. According to pt. Girlfriend. I asked if I could speak to pt. Pt. Got on phone. Pt. Is very calm and apologetic. Pt. States that he was upset last night over a difference of opinion. Pt. States he is going through a lot of stress due to the surgery coming up and his apartment situation is causing stress. I gave him the numbers to crisis so that he can talk to someone whenever heneeds. Pt. Is interested in getting back into counseling so that he can talk with someone about hisfeelings that is a neutral person. Pt. Denies thoughts of self harm, harm to others, or suicidal thoughts. I advised pt. To start taking his Gabapentin starting tonight and I see that pt. Has a RX for Clonazepam but is out. I advised pt. That I will send message to PCP for refill of clonazepam and that I will send a note to [facility] to reach out to pt. Protocol Used: Anxiety and Panic Attack (Adult) Protocol-Based Disposition: See in Office or Video Visit within 3 Days- Pt. Has back surgery in 3 days. Video visit not offered Positive Triage Question: * Requesting to talk to a counselor (e.g., mental health worker, psychiatrist) * All higher-acuity triage questions were negative Care Advice Discussed: * Anxiety - Healthy Lifestyle Tips * Avoid Triggers of Anxiety * Stress Reduction * Anxiety - Healthy Lifestyle Tips * Avoid Caffeine * Avoid Triggers of Anxiety * Telephone Encounter - Autumn Todd - 12/27/2022 1:41 PM EDT Symptom: Aggressive Behavior Outcome: Schedule an urgent appointment (within 1 hour) or talk to a nurse or provider soon Reason: spouse states pt has a cervical spine surgery on 12/30. Pt decided on his own to stop taking duloxetine and has been aggressive since. The caller accepted this outcome Please contact pt spouse at [phone] documented in this encounter Plan of Treatment Not on file documented as of this encounter Visit Diagnoses Not on filedocumented in this encounter Additional Health Concerns Assessment Noted Time PHQ-9 Depression Total Score: 11 023 11:12 AM EDT documented as of this encounter Care Teams Medical Science Liaison Relationship Specialty Start Date End Date Kylee Guerra MD [address] [place] [address] PCP - General Internal Medicine 08/06/22 10/06/23 Carolee Shea MD [address] [place] [id number] PCP - General Internal Medicine 10/07/23 documented as of this encounter
--- OUTSIDE RECORDS SUMMARY | 2024-06-09 17:11 | XMS_ITS ---
Author Organization [facility] Address [address] [place] [id number] Care Team Providers Care Sausage Linker Name Role Phone Kylee Guerra Primary Care Provider Félix Crowley [phone] REASON FOR VISIT Pt no showed Encounters Encounter Location Date Provider Diagnosis [facility] [address] [place] [phone] 02/22/2024 Félix Matt Plan Of Treatment No Information Progress Notes * AAKASH KENTDOB:1970 (53 yo M)Acc No.[id number]:02/22/2024 Patient:?YOLI AAKASH :1970???Age:53 Y???Sex:Male Address:[address] [place] [address], [address] * true * Date:? Generated for Daliai hemanth/Mariana/eTransmitting on:?06/09/2024 05:10 PM EDT
--- OUTSIDE RECORDS SUMMARY | 2024-06-09 17:11 | XMS_ITS | Encounter Summary ---
Author Organization [employer] Address [address] [facility] 7t [place] [address] Care Team Providers Care Fine Arts Model Name Role Phone Kylee Guerra MD Primary Care Pro vider Carolee Shea MD Primary Care Provider [phone] Reason for Visit * Reason Comments Med Refill Encounter Details Date Type Department Care Team (Late st Contact Info) Description 07/06/2023 Refill [facility] [address] [place] [address] Mackenzie Briseno MD [address] [place] [address] Social History Tobacco Use Types Packs/Day Years [...] documented as of this encounter Care Teams Fine Arts Model Relationship Specialty Start Date End Date Kylee Guerra MD [address] [place] [address] PCP - General Internal Medicine 08/06/22 10/06/23 Carolee Shea MD [address] [place] [id number] PCP - General Internal Medicine 10/07/23 documented as of this encounter
--- OUTSIDE RECORDS SUMMARY | 2024-06-09 17:11 | XMS_ITS | Encounter Summary ---
Author Organization [employer] Address [address] [facility] 7 [place] [address] Care Team Providers Care Director Of Athletics Name Role Phone Kylee Guerra MD Primary Care Pro vider Carolee Shea MD Primary Care Provider [phone] Reason for Visit * Reason Onset Date Comments Medication Question 12/09/2022 Encounter Details Date Type Department Care Team (Late st Contact Info) Description 12/09/2022 Telephone [facility] [address] [place] [address] Kylee Guerra MD [address] [place] [address] Medication Question Social History Tobacco Use Types Packs/Day Years [...] enough money to get more: Sometimes True 12/13/2022 Transportation Answer Date Recorded In the past 12 months, has l ack of transportation kept you from medical appts, meetings, work or from getting things needed for daily living? No 12/13/2022 Utilities Answer Date Recorded In the past 12 months, has t he electric, gas, oil or water company threatened to shut off services in your home? No 12/13/2022 Depression Answer Date Recorded Patient Health Questionnaire-2 Score 1 09/21/2022 Sex and Gender Information Value Date Recorded Sex Assigned at Male 01/04/2022 10:39 AM EDT Legal Sex Male 10:39 AM EDT Gender Identity Male 01/04/2022 10:39 AM EDT Sexual Orientation Choose not to disclose 2022 9:06 AM EDT documented as of this encounter Miscellaneous Notes * Telephone Encounter - Janell Rojas - 12/09/2022 12:29 PM EDT Tc from patient requesting a call back, in regards to medication cymbalta 30 mg. Patient would likealternative medication due to side affects including chest pressure, stomach pain, dizziness and not feeling like himself. Patient denies any symptoms at this time. Stopped medication 4-5 days ago. documented in this encounter Plan of Treatment Not on file documented as of this encounter Visit Diagnoses Not on filedocumented in this encounter Additional Health Concerns Assessment Noted Time PHQ-9 Depression Total Score: 11 023 11:12 AM EDT documented as of this encounter Care Teams Director Of Athletics Relationship Specialty Start Date End Date Kylee Guerra MD [address] [place] [address] PCP - General Internal Medicine 08/06/22 10/06/23 Carolee Shea MD [address] [place] [address] PCP - General Internal Medicine 10/07/23 documented as of this encounter
--- OUTSIDE RECORDS SUMMARY | 2024-06-09 17:11 | XMS_ITS ---
Author Organization [facility] Address [address] [place] [phone] Care Team Providers Care Certified Marine Mechanic Name Role Phone Kylee Guerra Primary Care Provider Félix Crowley [phone] REASON FOR VISIT Patient presents today for a colon screening Encounters Encounter Location Date Provider Diagnosis [facility] [address] [place] [phone] 01/17/2024 Félix Matt Plan Of Treatment No Information Progress Notes * YOLI, DEDRICKESTEFANIDOB:1970 (53 yo M)Acc No.[id number]:01/17/2024 Progress Notes Patient:?AAKASH KENT Provider:?Félix Matt MD :1970???Age:53 Y???Sex:Male Carlos e:01/17/2024 Address:[address] [place], [place] [id number] Pcp:Kylee Garcia Subjective: * Chief Complaints: * ???1. Patient [...]
[2024-06-09 17:31] LABS: MANUAL DIFF FLAG NO
[2024-06-09 17:33] LABS: Basophils Percent Auto 0.7 % (0-2); Eosinophils Absolute Auto 0.7 X10*3/uL (0.0-0.4); Eosinophils Percent Auto 12.1 % (0-4); Hematocrit 42.7 % (42.0-52.0); Hemoglobin 14.6 g/dl (14.0-18.0); Imm Gran Abs Auto 0.02 X10*3/uL (0.00-0.03); Imm Gran Pct Auto 0.3 % (0.0-0.4); Lymphocytes Absolute Auto 1.4 X10*3/uL (1.2-4.9); Lymphocytes Percent Auto 23.7 % (20-40); Mean Corpuscular HGB Conc 34.2 g/dl (31.0-36.0); Mean Corpuscular Hemoglobin 30.7 pg (27.0-33.0); Mean Corpuscular Volume 89.9 fL (80.0-98.0); Mean Platelet Volume 9.1 fL (9.4-12.4); Monocytes Absolute Auto 0.7 X10*3/uL (0.1-1.2); Monocytes Percent Auto 11.4 % (2-11); Neutrophils Percent Auto 51.8 % (45-73); Platelet Count 227 X10*3/uL (160-400); Red Blood Count 4.75 X10*6/uL (4.60-5.80); Red Cell Distribution Width 12.2 % (11.0-16.0); White Blood Count 5.8 X10*3/uL (4.8-10.8)
[2024-06-09] MEDS: methylPREDNISolone Sod Succ 125 MG/2 ML VIAL IVPUSH (17:37)
[2024-06-09] MEDS: 0.9 % Sodium Chloride 1,000 ML 999 ML IV (17:37)
[2024-06-09] MEDS: Magnesium Sulfate/H2O 2 GM/50 ML PIGGYBACK IV (17:37)
[2024-06-09 17:47] LABS: Anion Gap 14 (12-20); Blood Urea Nitrogen 19 mg/dL (9-16); Calcium 9.2 mg/dL (8.4-10.2); Carbon Dioxide 24 mmol/L (22-29); Chloride 108 mmol/L (96-108); Creatinine Clr Calc Pharmacy 91.2; Estimated Glomerular Filt Rate > 60; Glucose Random 88 mg/dL (60-115); Potassium 3.5 mmol/L (3.3-5.1); Sodium 142 mmol/L (135-145)
[2024-06-09 17:48] LABS: Lactic Acid 1.5 mmol/L (0.5-2.0)
[2024-06-09 18:12] LABS: Influenza A PCR POSITIVE (Negative); Influenza B PCR NEGATIVE (Negative); Resp Syncy Virus RNA Qual PCR NEGATIVE (Negative); SARS COV2 PCR INHOUSE NEGATIVE (Negative)
[2024-06-09] MEDS: Oseltamivir Phosphate 75 MG CAPSULE PO (18:44)
[2024-06-09] MEDS: Albuterol Sulfate (0.083%) 2.5 MG/3 ML VIAL.NEB 5 MG INHALE (19:09)
--- NOTE | 2024-06-09 19:15 | PC.NURSE ---
telemetry not needed per MD
--- NOTE | 2024-06-09 19:55 | PM.IMHP ---
History of Present Illness Date of Service: 06/09/24 Chief Complaint: Dyspnea This is a 52-year-old male with pertinent history of asthma not on home oxygen, allergic rhinitis, anxiety, CARLOS ALBERTO not compliant with CPAP who presents to the emergency department for evaluation of dyspnea. Patient states his symptoms started 2 days prior to presentation. He has been having generalized body ache, cough with clear sputum production and nasal congestion. Also has been having headache and chills. No documented fever. Does endorse wheezing which is not relieve with home inhalers. Does not use oxygen at baseline. States his stepdaughter is sick. No chest pain, palpitations, abdominal pain, changes in urinary or bowel habits. In the emergency department, patient was found to be hypoxic upon ambulation on room air. Also found to be wheezing despite DuoNeb treatments. Review of Systems Constitutional: Constitutional: Reports body ache(s), Reports chills, Reports fatigue, Reports headache(s), Reports lethargy and Reports malaise ENT: Reports headache(s) Cardiovascular: Cardiovascular: Reports no additional cardiovascular complaints and Reports dyspnea on exertion Respiratory: Respiratory: Reports cough, Reports dyspnea on exertion and Reports wheezing Gastrointestinal: Gastrointestinal: Reports no additional gastrointestinal complaints Genitourinary: Genitourinary: Reports no additional male genitourinary complaints Neurologic: Reports headache(s) Endocrine: Endocrine: Reports fatigue Allergic/Immunologic: Allergic/Immunologic: Reports wheezing [facility] Medical History Asthma Seasonal allergies Neck pain Pertinent family history: No family history of early CAD Surgical History History of colonoscopy with polypectomy Hx of appendectomy Social History Household Members: Significant Other Housing: Apartment Do you presently have visiting nurse or other home services: No Alcohol intake: current Patient Tobacco Use Status: Never used Tobacco Advance Directives: No Advance Directives Information Provided: No Do you have a plan to hurt others: No Plan service: No Meds Allergies Allergy/AdvReac Type Severity Reaction Status Date / Time oxycodone [From Percocet] Allergy whoozy Verified 06/09/24 16:59 Home Medications ?Medication ?Instructions ?Recorded ?Confirmed ?Last Taken ?Type clonazepam 0.5 mg tablet 0.5 mg PO DAILY PRN anxiety 07/11/23 06/09/24 07/10/23 History fexofenadine 180 mg tablet 180 mg PO DAILY 07/11/23 07/11/23 Unknown History ibuprofen 200 mg tablet (Advil) 400 mg PO Q6H PRN Pain 07/11/23 07/11/23 Unknown History Physical Exam Vital Signs and Narrative: Vital Signs: Last Vital Signs Temp 98.5 F 06/09/24 16:57 Pulse 79 06/09/24 19:13 Resp 18 06/09/24 19:13 BP 160/84 H 06/09/24 16:57 Pulse Ox 92 06/09/24 16:57 O2 Del Method Room Air 06/09/24 16:57 BMI result Body Mass Index 34.5 Middle-aged male lying in bed in mild distress Neck supple, no JVD Regular rate and rhythm, S1-S2 heard Bilateral wheezing appreciated Abdomen soft nontender, no guarding, no rigidity Patient is awake, alert and oriented to self, place, time and person ; no focal motor deficit Psych: Normal mood No pedal edema Results Labs 06/09/24 17:24 06/09/24 17:24 Labs: Laboratory Results - last 24 hr 06/09/24 17:24 MCV 89.9 MCH 30.7 MCHC 34.2 RDW 12.2 Plt Count 227 MPV 9.1 L Immature Gran % (Auto) 0.3 Neut % (Auto) 51.8 Lymph % (Auto) 23.7 [place] % (Auto) 11.4 H Eos % (Auto) 12.1 H Baso % (Auto) 0.7 Lymph # (Auto) 1.4 [place] # (Auto) 0.7 Eos # (Auto) 0.7 H Baso # (Auto) 0.0 Abs Immat Gran (auto) 0.02 Absolute Neuts (auto) 3.0 Absolute Nucleated RBC 0.000 Nucleated RBC % (auto) 0.0 Anion Gap 14 Estim Creat Clear Calc 91.2 Estimated GFR > 60 Random Glucose 88 Lactic Acid 1.5 Calcium 9.2 D Influenza Type A (PCR) POSITIVE A Influenza Type B (PCR) NEGATIVE RSV RNA Qual (PCR) NEGATIVE SARS-CoV-2 RNA (RT-PCR) NEGATIVE Assessment and Plan (1) Hypoxia: Status: Acute (2) Asthma: Status: Acute (3) Influenza: Status: Acute Plan This is a 52-year-old male with pertinent history of asthma not on home oxygen, allergic rhinitis, anxiety, CARLOS ALBERTO noncompliant with CPAP who presents to the emergency department for evaluation of dyspnea. #. Acute ambulatory hypoxia due to influenza a infection leading to asthma exacerbation: Will admit patient with supplemental oxygen as needed. Initiated Tamiflu and systemic steroids. Scheduled and p.r.n. DuoNebs. Continue home inhaler. #. CARLOS ALBERTO: Refused CPAP #. Anxiety: On clonazepam p.r.n. Med rec pending DVT prophylaxis: Lovenox Full code Admit as inpatient and will require two night minimum hospital stay for supplemental oxygen, monitoring of respiratory status (as above), which is not possible in a lesser acute setting. Quality Stroke Does the patient have a stroke diagnosis?: No VTE Prior VTE?: No VTE Risk Level:: Medical - moderate - high VTE Device Contraindication: Treatment Not Indicated VTE Drug Contraindication: N/A - Med Ordered
[2024-06-09] MEDS: Acetaminophen 325 MG TABLET 975 MG PO (19:58)
[2024-06-09] MEDS: Albuterol/Iprat 2.5/0.5MG 3 ML AMPUL.NEB INHALE (20:46)
[2024-06-09] MEDS: Benzonatate 100 MG CAPSULE PO (21:03)
[2024-06-09] MEDS: clonazePAM 0.5 MG TABLET PO (21:03)
[2024-06-09] MEDS: Enoxaparin Sodium 40 MG/0.4 ML SYRINGE SUBCUT (21:03)
[2024-06-10] VITALS (8 sets, daily range): BP systolic 121–127; BP diastolic 62–78; PULSE 78–100; RESP 16–20; TEMP 36.7–36.9; O2SAT 90–93; BMI 34.5
--- NOTE | 2024-06-10 00:54 | PC.NURSE ---
second set of cultures not needed per MD Webber
[2024-06-10] MEDS: Ibuprofen 800 MG TABLET PO (02:21)
[2024-06-10 05:41] LABS: Basophils Percent Auto 0.2 % (0-2); Imm Gran Abs Auto 0.01 X10*3/uL (0.00-0.03); Imm Gran Pct Auto 0.2 % (0.0-0.4); Lymphocytes Absolute Auto 0.5 X10*3/uL (1.2-4.9); Lymphocytes Percent Auto 8.1 % (20-40); MANUAL DIFF FLAG SCAN; Mean Corpuscular HGB Conc 34.1 g/dl (31.0-36.0); Mean Corpuscular Hemoglobin 30.6 pg (27.0-33.0); Mean Corpuscular Volume 89.7 fL (80.0-98.0); Mean Platelet Volume 9.6 fL (9.4-12.4); Monocytes Percent Auto 0.7 % (2-11); Neutrophils Percent Auto 90.8 % (45-73); Platelet Count 242 X10*3/uL (160-400); Red Blood Count 4.57 X10*6/uL (4.60-5.80); Red Cell Distribution Width 12.4 % (11.0-16.0); SCAN SMEAR FLAG 1; White Blood Count 5.5 X10*3/uL (4.8-10.8)
[2024-06-10 05:58] LABS: Anion Gap 14 (12-20); Blood Urea Nitrogen 17 mg/dL (9-16); Carbon Dioxide 20 mmol/L (22-29); Chloride 110 mmol/L (96-108); Creatinine Clr Calc Pharmacy 95.8; Estimated Glomerular Filt Rate > 60; Glucose Random 245 mg/dL (60-115); Potassium 4.3 mmol/L (3.3-5.1); Sodium 140 mmol/L (135-145)
[2024-06-10 06:05] LABS: SLIDE REVIEW VERIFIED
[2024-06-10] MEDS: Oseltamivir Phosphate 75 MG CAPSULE PO ×2 (07:41→20:37)
[2024-06-10] MEDS: 0.9 % Sodium Chloride Flush 3 ML SYRINGE IVFLUSH ×3 (07:41→20:38)
[2024-06-10] MEDS: predniSONE 20 MG TABLET 40 MG PO (07:41)
[2024-06-10] MEDS: Albuterol/Iprat 2.5/0.5MG 3 ML AMPUL.NEB INHALE ×3 (07:51→15:34)
--- NOTE | 2024-06-10 08:42 | PC.NURSE ---
Pharmacy at bedside for Med Rec.
--- NOTE | 2024-06-10 09:05 | PHA.MEDREC ---
Addendum entered by Luisana Love RPh 06/10/24 09:41: [facility] Original Note: Pharmacy Consult ? Medication Reconciliation Pharmacy has completed the medication reconciliation. Spoke to pt to confirm meds.
[2024-06-10] MEDS: Benzonatate 100 MG CAPSULE PO ×2 (10:09→20:37)
[2024-06-10] MEDS: clonazePAM 0.5 MG TABLET PO (10:09)
--- NOTE | 2024-06-10 10:13 | HO.PM.IMPN ---
Subjective Subjective Date of Service: 06/10/24 Interval History: wheezing, short of breath, coughing Review of Systems Review of Systems: Yes all other systems are reviewed and are negative Physical Exam Vital Signs: Vital Signs: Last Vital Signs Temp 98.0 F 06/10/24 09:38 Pulse 88 06/10/24 09:38 Resp 18 06/10/24 09:38 BP 126/69 06/10/24 09:38 Pulse Ox 93 06/10/24 09:38 O2 Del Method Nasal Cannula 06/10/24 09:38 O2 Flow Rate 4 06/10/24 09:38 BMI result Body Mass Index 34.5 Gen: in no acute distress HEENT: sclera anicteric, moist mucus membranes Neck: supple Lungs: extensive expiratory wheezing throughout all lung sotelo Heart: regular rate and rhythm, no murmurs Abd: soft, non-tender, non-distended Ext: no edema Skin: warm/well-perfused Neuro: alert and oriented x3, no focal findings Psych: appropriate affect Objective Data Active Medications Acetaminophen (Acetaminophen 325 Mg Tablet) 650 mg PO Q6H PRN PRN Reason: Pain, Mild 1-3,fever,headache Albuterol/Ipratropium (Albuterol/Iprat 2.5/0.5mg 3 Ml Ampul.Neb) 3 ml INHALE Q4H PRN PRN Reason: Shortness of Breath/Wheezing Albuterol/Ipratropium (Albuterol/Iprat 2.5/0.5mg 3 Ml Ampul.Neb) 3 ml INHALE RQ4H WHILE AWAKE [facility] Last Admin: 06/10/24 07:51 Dose: 3 ml Documented By: SCOVILALIT Benzonatate (Benzonatate 100 Mg Capsule) 100 mg PO TID PRN PRN Reason: Cough Last Admin: 06/10/24 10:09 Dose: 100 mg Documented By: MOOKIE Calcium Carbonate (Calcium Carbonate 750 Mg Tab.Chew) 750 mg PO Q4H PRN PRN Reason: Heartburn Clonazepam (Clonazepam 0.5 Mg Tablet) 0.5 mg PO DAILY PRN PRN Reason: anxiety Last Admin: 06/10/24 10:09 Dose: 0.5 mg Documented By: MOOKIE Enoxaparin Sodium (Enoxaparin Sodium 40 Mg/0.4 Ml Syringe) 40 mg SUBCUT Q24H [facility] Last Admin: 06/09/24 21:03 Dose: 40 mg Documented By: MARCUS Loratadine (Loratadine 10 Mg Tablet) 10 mg PO DAILY [facility] Magnesium Hydroxide (Milk Of Magnesia 30 Ml Oral.Susp) 30 ml PO DAILY PRN PRN Reason: Constipation Melatonin (Melatonin 3 Mg Tablet) 6 mg PO BEDTIME PRN PRN Reason: Insomnia Non-Formulary Medication (Fluticasone Furoate-Vilanterol [Breo Ellipta]) 1 inhalation INHALE DAILY [facility] Ondansetron HCl (Ondansetron Hcl 4 Mg/2 Ml Vial) 4 mg IVPUSH Q8H PRN PRN Reason: Nausea and Vomiting Oseltamivir Phosphate (Oseltamivir Phosphate 75 Mg Capsule) 75 mg PO Q12H [facility] Stop: 06/14/24 20:01 Last Admin: 06/10/24 07:41 Dose: 75 mg Documented By: BROOKS Prednisone (Prednisone 20 Mg Tablet) 40 mg PO DAILY [facility] Last Admin: 06/10/24 07:41 Dose: 40 mg Documented By: BROOKS Sodium Chloride (0.9 % Sodium Chloride Flush 3 Ml Syringe) 3 ml IVFLUSH QSHIFT [facility] Last Admin: 06/10/24 07:41 Dose: 3 ml Documented By: BROOKS Labs 06/10/24 05:05 06/10/24 05:05 Labs: Laboratory Results - last 24 hr 06/09/24 06/10/24 17:24 05:05 MCV 89.9 89.7 MCH 30.7 30.6 MCHC 34.2 34.1 RDW 12.2 12.4 Plt Count 227 242 MPV 9.1 L 9.6 Immature Gran % (Auto) 0.3 0.2 Neut % (Auto) 51.8 90.8 H Lymph % (Auto) 23.7 8.1 L [place] % (Auto) 11.4 H 0.7 L Eos % (Auto) 12.1 H 0.0 Baso % (Auto) 0.7 0.2 Lymph # (Auto) 1.4 0.5 L [place] # (Auto) 0.7 0.0 L Eos # (Auto) 0.7 H 0.0 Baso # (Auto) 0.0 0.0 Abs Immat Gran (auto) 0.02 0.01 Absolute Neuts (auto) 3.0 5.0 Absolute Nucleated RBC 0.000 0.000 Nucleated RBC % (auto) 0.0 0.0 Smear Tech's Comments VERIFIED Anion Gap 14 14 Estim Creat Clear Calc 91.2 95.8 Estimated GFR > 60 > 60 Random Glucose 88 245 H Lactic Acid 1.5 Calcium 9.2 D 9.0 Influenza Type A (PCR) POSITIVE A Influenza Type B (PCR) NEGATIVE RSV RNA Qual (PCR) NEGATIVE SARS-CoV-2 RNA (RT-PCR) NEGATIVE Microbiology Microbiology Results: Microbiology 06/09/24 17:03 Blood Culture - Final Blood - Venous Assessment and Plan (1) Influenza: Status: Acute Plan d2 for 53yo M with moderate-persistent asthma and psoriatic [facility] + asthma exacerbation triggered by influenza acute hypoxic respiratory failure and exacerbation of moderate-persistent asthma due to influenza - prednisone 4/5-, nebs, continue ICS/LABA - oseltamivir 4/5-10 - supplemental O2, wean as tolerated anxiety - clonazepam VTE ppx - enoxaparin dispo - eventual home In my clinical judgment, the patient requires continued inpatient hospitalization for the following reasons: hypoxia Total time managing care of this patient today: 35 minutes. Quality Stroke Does the patient have a stroke diagnosis?: No VTE Prior VTE?: No VTE Risk Level:: Medical - moderate - high VTE Device Contraindication: Treatment Not Indicated VTE Drug Contraindication: N/A - Med Ordered
[2024-06-10] MEDS: Acetaminophen 325 MG TABLET 650 MG PO (14:41)
--- NOTE | 2024-06-10 15:17 | MHC.CM.PN ---
Patient HAL LANDAVERDE from Home, FLU A+ Lives with family members. Family has the FLU too. He is independent with all functional mobility. Requiring supplemental O2 4L via [place] @ [facility] A new HCP has been documented. DP home self care. [facility] Shuttle transport home.
[2024-06-10] MEDS: Enoxaparin Sodium 40 MG/0.4 ML SYRINGE SUBCUT (20:37)
[2024-06-11 08:00] VITALS: BP 131/83; PULSE 76; RESP 16; TEMP 36.4; O2SAT 90
[2024-06-11 08:02] VITALS: PULSE 91; RESP 18; O2SAT 90
[2024-06-11] MEDS: Albuterol/Iprat 2.5/0.5MG 3 ML AMPUL.NEB INHALE ×2 (08:02→11:36)
[2024-06-11] MEDS: Oseltamivir Phosphate 75 MG CAPSULE PO (08:05)
[2024-06-11] MEDS: Loratadine 10 MG TABLET PO (08:05)
[2024-06-11] MEDS: 0.9 % Sodium Chloride Flush 3 ML SYRINGE IVFLUSH (08:05)
[2024-06-11] MEDS: predniSONE 20 MG TABLET 40 MG PO (08:05)
[2024-06-11] MEDS: Acetaminophen 325 MG TABLET 650 MG PO (10:54)
[2024-06-11 11:38] VITALS: PULSE 88; RESP 18; O2SAT 94
--- NOTE | 2024-06-11 13:43 | P.DS_ITS ---
DS: Providers Provider Date of Service: 06/11/24 Date of admission: 06/09/24 19:54 Date of discharge: 06/11/24 Primary care physician: Nonstaff Physician DS: Diagnosis Discharge Diagnosis (1) Influenza: Status: Acute (2) Moderate persistent asthma with (acute) exacerbation: Status: Acute (3) Acute respiratory failure with hypoxia: Status: Acute DS: Summary Hospital Course Hospital Course: From the history and physical by the admitting hospitalist, Mike Rowe MD, 06/09/24: This is a 52-year-old male with pertinent history of asthma not on home oxygen, allergic rhinitis, anxiety, CARLOS ALBERTO not compliant with CPAP who presents to the emergency department for evaluation of dyspnea. Patient states his symptoms started 2 days prior to presentation. He has been having generalized body ache, cough with clear sputum production and nasal congestion. Also has been having headache and chills. No documented fever. Does endorse wheezing which is not relieve with home inhalers. Does not use oxygen at baseline. States his stepdaughter is sick. No chest pain, palpitations, abdominal pain, changes in urinary or bowel habits. In the emergency department, patient was found to be hypoxic upon ambulation on room air. Also found to be wheezing despite DuoNeb treatments. 53yo M with moderate-persistent asthma and psoriatic arthritis on Stelara admitted to the medical-surgical unit for hypoxia + asthma exacerbation triggered by influenza. He was treated with prednisone, nebulizeed bronchodilators, and oseltamivir with clinical improvement. He was weaned off of oxygen and discharged home to complete a 5-day course of prednisone and oseltamivir. Time Attestation Discharge Coordination Time (in mins): 35 Quality: Safe Use of Opioids Does Pt have an Active Cancer Diagnosis on the Problem List?: No Quality: Stroke Does the patient have a stroke diagnosis?: No Physical Exam Vital Signs: Vital Signs: Last Vital Signs Temp 97.5 F 06/11/24 08:00 Pulse 88 06/11/24 11:38 Resp 18 06/11/24 11:38 BP 131/83 06/11/24 08:00 Pulse Ox 90 L 06/11/24 08:00 O2 Del Method Nasal Cannula 06/11/24 08:00 O2 Flow Rate 3.0 06/11/24 08:00 BMI result Body Mass Index 34.5 Gen: in no acute distress HEENT: sclera anicteric, moist mucus membranes Neck: supple Lungs: diminished Heart: regular rate and rhythm, no murmurs Abd: soft, non-tender, non-distended Ext: no edema Skin: warm/well-perfused Neuro: alert and oriented x3, no focal findings Psych: appropriate affect DS: Data Data Completed and Pending Completed studies during hospitalization [Text1]: Laboratory Results WBC 5.5 X10*3/uL (4.8-10.8) 06/10/24 05:05 RBC 4.57 X10*6/uL (4.60-5.80) L 06/10/24 05:05 Hgb 14.0 g/dl (14.0-18.0) 06/10/24 05:05 Hct 41.0 % (42.0-52.0) L 06/10/24 05:05 MCV 89.7 fL (80.0-98.0) 06/10/24 05:05 MCH 30.6 pg (27.0-33.0) 06/10/24 05:05 MCHC 34.1 g/dl (31.0-36.0) 06/10/24 05:05 RDW 12.4 % (11.0-16.0) 06/10/24 05:05 Plt Count 242 X10*3/uL (160-400) 06/10/24 05:05 MPV 9.6 fL (9.4-12.4) 06/10/24 05:05 Immature Gran % (Auto) 0.2 % (0.0-0.4) 06/10/24 05:05 Neut % (Auto) 90.8 % (45-73) H 06/10/24 05:05 Lymph % (Auto) 8.1 % (20-40) L 06/10/24 05:05 [place] % (Auto) 0.7 % (2-11) L 06/10/24 05:05 Eos % (Auto) 0.0 % (0-4) 06/10/24 05:05 Baso % (Auto) 0.2 % (0-2) 06/10/24 05:05 Lymph # (Auto) 0.5 X10*3/uL (1.2-4.9) L 06/10/24 05:05 [place] # (Auto) 0.0 X10*3/uL (0.1-1.2) L 06/10/24 05:05 Eos # (Auto) 0.0 X10*3/uL (0.0-0.4) 06/10/24 05:05 Baso # (Auto) 0.0 X10*3/uL (0.0-0.2) 06/10/24 05:05 Abs Immat Gran (auto) 0.01 X10*3/uL (0.00-0.03) 06/10/24 05:05 Absolute Neuts (auto) 5.0 x10*3/uL (2.0-8.3) 06/10/24 05:05 Absolute Nucleated RBC 0.000 X10*3/uL (0.0-0.012) 06/10/24 05:05 Nucleated RBC % (auto) 0.0 /100WBC (0.0-0.2) 06/10/24 05:05 Smear Tech's Comments VERIFIED 06/10/24 05:05 Sodium 140 mmol/L (135-145) 06/10/24 05:05 Potassium 4.3 mmol/L (3.3-5.1) D 06/10/24 05:05 Chloride 110 mmol/L (96-108) H 06/10/24 05:05 Carbon Dioxide 20 mmol/L (22-29) L 06/10/24 05:05 Anion Gap 14 (12-20) 06/10/24 05:05 BUN 17 mg/dL (9-16) H 06/10/24 05:05 Creatinine 0.98 mg/dL (0.5-1.4) 06/10/24 05:05 Estim Creat Clear Calc 95.8 06/10/24 05:05 Estimated GFR > 60 06/10/24 05:05 Random Glucose 245 mg/dL (60-115) H 06/10/24 05:05 Lactic Acid 1.5 mmol/L (0.5-2.0) 06/09/24 17:24 Calcium 9.0 mg/dL (8.4-10.2) 06/10/24 05:05 Influenza Type A (PCR) POSITIVE (Negative) A 06/09/24 17:24 Influenza Type B (PCR) NEGATIVE (Negative) 06/09/24 17:24 RSV RNA Qual (PCR) NEGATIVE (Negative) 06/09/24 17:24 SARS-CoV-2 RNA (RT-PCR) NEGATIVE (Negative) 06/09/24 17:24 Discharge Plan Discharge Anticipated Discharge Date/Time: 06/11/24 16:45 Patient Disposition: Home, Self-Care Discharge Diagnosis: hypoxia and asthma exacerbation due to influenza Referrals: Physician,Nonstaff [Primary Care Provider] - 1 Week Discharge Medications: New prednisone 20 mg Tablet 40 mg PO DAILY Qty: 6 0RF benzonatate 100 mg Capsule 100 mg PO TID PRN (Reason: Cough) Qty: 30 0RF oseltamivir [Tamiflu] 75 mg Capsule 75 mg PO Q12H Qty: 7 0RF Continued ibuprofen 800 mg tablet 800 mg PO Q8H PRN (Reason: pain) Stelara 90 mg/mL syringe 90 mg subcut [id number] acetaminophen 500 mg Tablet 1,000 mg PO Q6H PRN (Reason: Pain) albuterol sulfate 2.5 mg /3 mL (0.083 %) solution for nebulization 2.5 mg inhalation QID PRN (Reason: Shortness Of Breath) fexofenadine 180 mg tablet 180 mg PO DAILY clonazepam 0.5 mg tablet 0.5 mg PO DAILY PRN (Reason: anxiety) albuterol sulfate 90 mcg/actuation aerosol powdr breath activated 2 inh inhalation Q6H PRN (Reason: shortness of breath or wheezing) Qty: 1 0RF Breo Ellipta 50-25 mcg/dose blister with device 1 inh inhalation DAILY Qty: 60 0RF Discharge Orders: Discharge Order (Routine); Ordered 06/11/24 Ordered By: Mckenna Plaza Diet: Advance to usual diet Activity on Discharge: As tolerated Stand Alone Forms: Patient Portal Discharge page Print Language: Croatian Care Plan Goals: recovery from influenza Health Concerns: hypoxia and asthma exacerbation due to influenza Plan of Treatment: prednisone 40 mg daily x 3 days oseltamivir 75 mg twice daily for 7 more doses benzonatate as needed for cough Please follow up with your primary care doctor within 1 week. Return to the hospital if you experience recurrent or worsening symptoms. Assessment: See Discharge Summary.
--- NOTE | 2024-06-11 13:45 | MHC.CM.PN ---
pt dcd home self care
[2024-06-11 14:26] VITALS: BP 148/84; PULSE 93; RESP 16; TEMP 36.8; O2SAT 92
== END 2024-06-11 14:37 | disposition home or self-care (01) | DRG 113 ==
LOC: HO.ED 19:48 → HO.EDOVER 19:59 → HO.S3 06-10 08:41
PROVIDERS: Admitting Provider Student in an Organized Health Care Education/Training Program; Emergency Provider Internal Medicine; PCP Internal Medicine; Visit Provider Family Medicine
DX: J10.1 Influenza due to other identified influenza virus with other respiratory manifestations (principal); J96.01 Acute respiratory failure with hypoxia; J45.41 Moderate persistent asthma with (acute) exacerbation; G47.33 Obstructive sleep apnea (adult) (pediatric); L40.50 Arthropathic psoriasis, unspecified; F41.9 Anxiety disorder, unspecified; Z91.199 Patient's noncompliance with other medical treatment and regimen due to unspecified reason; Z79.899 Other long term (current) drug therapy
CPT/HCPCS: 0241U; 36415; 71045; 80048; 83605; 85025; 87040; 93005; 94640; 99285; J1650; J2919; J3475

== ENCOUNTER → 2024-06-09 17:17 | Outpatient (BNV) | payer MEDICAID, SELFPAY | PROVIDERS: Admitting Provider Student in an Organized Health Care Education/Training Program; Emergency Provider Internal Medicine; Visit Provider Internal Medicine | DX: R06.02 Shortness of breath (principal) | CPT/HCPCS: 93010 ==

== ENCOUNTER → 2024-06-09 17:32 | Outpatient (BNV) | payer MEDICAID, SELFPAY | PROVIDERS: Emergency Provider Internal Medicine; Visit Provider Radiology Diagnostic Radiology | DX: R06.02 Shortness of breath (principal) | CPT/HCPCS: 71045 ==

== ENCOUNTER → 2024-06-09 19:54 | Outpatient (BNV) | payer MEDICAID, SELFPAY | PROVIDERS: Admitting Provider Student in an Organized Health Care Education/Training Program; Emergency Provider Internal Medicine; Visit Provider Student in an Organized Health Care Education/Training Program | DX: J96.01 Acute respiratory failure with hypoxia (principal); J11.1 Influenza due to unidentified influenza virus with other respiratory manifestations; J45.41 Moderate persistent asthma with (acute) exacerbation | CPT/HCPCS: 99222; 99232; 99239 ==

== ENCOUNTER 2024-06-19 15:32 | Outpatient (REF) | payer MEDICAID, SELFPAY ==
[2024-06-19 18:24] LABS: MANUAL DIFF FLAG NO
[2024-06-19 18:34] LABS: Basophils Absolute Auto 0.1 X10*3/uL (0.0-0.2); Basophils Percent Auto 0.5 % (0-2); Eosinophils Absolute Auto 0.9 X10*3/uL (0.0-0.4); Eosinophils Percent Auto 9.3 % (0-4); Hematocrit 43.9 % (42.0-52.0); Hemoglobin 15.1 g/dl (14.0-18.0); Imm Gran Abs Auto 0.05 X10*3/uL (0.00-0.03); Imm Gran Pct Auto 0.5 % (0.0-0.4); Lymphocytes Absolute Auto 3.4 X10*3/uL (1.2-4.9); Lymphocytes Percent Auto 34.1 % (20-40); Mean Corpuscular HGB Conc 34.4 g/dl (31.0-36.0); Mean Corpuscular Hemoglobin 30.4 pg (27.0-33.0); Mean Corpuscular Volume 88.3 fL (80.0-98.0); Mean Platelet Volume 9.5 fL (9.4-12.4); Monocytes Absolute Auto 0.9 X10*3/uL (0.1-1.2); Monocytes Percent Auto 8.6 % (2-11); Neutrophils Absolute Auto 4.7 x10*3/uL (2.0-8.3); Platelet Count 314 X10*3/uL (160-400); Red Blood Count 4.97 X10*6/uL (4.60-5.80); Red Cell Distribution Width 11.9 % (11.0-16.0); White Blood Count 10.1 X10*3/uL (4.8-10.8)
--- OUTSIDE RECORDS SUMMARY | 2024-06-19 18:39 | XMS_ITS | Encounter Summary ---
Author Organization [employer] Address [address] [address] Care Team Providers Care Quartz Miner Name Role Phone Carolee Shea MD Primary Care Provider [phone] Reason for Visit * Reason Onset Date Comments Med Refill 12/08/2023 Encounter Details Date Type Department Care Team ([facility] st Contact Info) Description 12/08/2023 Telephone [facility] [address] [place] [address] Carolee Shea MD [address] [place] [address] Med Refill Social History Tobacco Use Types [...] 0.5 MG tablet To be sent to: [id number] [place], [place] - [facility] documented in this encounter Plan of Treatment Upcoming Encounters Date Type Department Care Team (Late st Contact Info) Description 07/03/2024 2:15 PM EDT Clinical Support [facility]ED[facility] [address] [place] [address] documented as of this encounter Visit Diagnoses Not on filedocumented in this encounter Additional Health Concerns Assessment Noted Time PHQ-9 Depression Total Score: 8 05/13/19 9:14 AM EST documented as of this encounter Care Teams Quartz Miner Relationship Specialty Start Date End Date Carolee Shea MD [address] [place] [address] PCP - General Internal Medicine 10/07/23 documented as of this encounter
--- OUTSIDE RECORDS SUMMARY | 2024-06-19 18:39 | XMS_ITS | Encounter Summary ---
Author Organization [employer] Address [address] [address] Care Team Providers Care Net Lead Developer Name Role Phone Carolee Shea MD Primary Care Provider [phone] Reason for Visit * Reason Comments Pre-visit Planning HDF scheduled Encounter Details Date Type Department Care Team (Late st Contact Info) Description 06/14/2024 Patient Outreach [facility] [address] [place] [address] Carolee Shea MD [address] [place], [place] [id number] Pre-visit Planning (HDF scheduled) Social History Tobacco Use Types Packs/Day Years [...] as of this encounter Miscellaneous Notes * Significant Event - Calli Hope - 06/14/2024 8:39 AM EDT 06/14/24 0837 Hospital Discharges and Admission for [facility] Type of Visit Hospital Admission Date of Admission/Visit 06/09/24 Date of Discharge 06/11/24 Facility [facility] Diagnosis Dyspnea Disposition Discharged Home Follow-Up Actions Follow-Up Needed Provider appointment Follow-Up Outcome Booked Appointment;Spoke to Patient Initial Contact Date 06/14/24 LUPE Mccurdy placed outbound call to patient for HDF outreach. Patient's name and were confirmed. Patient educated on the importance of follow up with provider following inpatient admission. Patientoffered an HDF appt. Patient is agreeable to an appointment and has been scheduled for 06/19/2024 at2:15 pm with [employer] Insurance verified prior to scheduling. Patient advised to bring to appointment a photo id and insurance card. Patient also notified that a health center pharmacist will be reaching out to them via telephone prior to their scheduled appointment in order to review their medications in preparation for their appointment. Patient provided with education on contacting the Health enter with any questions or concerns prior to the scheduled appointment. Patient educated on extended clinic hours on Mondays and Wednesdays, and Walk-In Urgent Care Located in [facility]. Patient provided with after-hours line for [facility], , which offer night time triage service and option to transfer to elementary school professional provider if needed. CC will request [facility] discharge summary has been scanned into patient chart for review. documented in this encounter Plan of Treatment Upcoming Encounters Date Type Department Care Team ([facility] st Contact Info) Description 07/03/2024 2:15 PM EDT Clinical Support [facility] [address] [place] [address] documented as of this encounter Visit Diagnoses Not on filedocumented in this encounter Additional Health Concerns Assessment Noted Time PHQ-9 Depression Total Score: 8 05/13/19 24 9:14 AM EST documented as of this encounter Care Teams Net Lead Developer Relationship Specialty Start Date End Date Carolee Shea MD [address] [place] [address] PCP - General Internal Medicine 10/07/23 documented as of this encounter
--- OUTSIDE RECORDS SUMMARY | 2024-06-19 18:39 | XMS_ITS | Clinical Summary ---
Author Organization [address] [facility] Address [address] [place] [address] Phone Care Team Providers Care Gallery Intern Name Role Phone Carolee Shea MD Primary Care Provider [phone] Social History Tobacco Use Types Packs/Day Years Used Date Smoking Tobacco: Never Assessed Sex and Gender Information Value Date Recorded Sex Assigned at Not on file Legal Sex Male 11:56 AM EST Gender Identity Not on file Sexual Orientation Not on file Plan of Treatment Upcoming Encounters Date Type Department Care Team ([facility] Contact Info) Description 07/02/2024 2:15 PM EDT Consult Orthopedic Surgery - [place] [address] [phone] Lencho Cheung, DPM [address] [address] Health Maintenance Due Date Last Done Comments DTaP,Tdap,and Td Vaccines (1 - Tdap) 08/08/1987 Hepatitis B Vaccines (1 of 3 - 19+ 3-dose series) 08/08/1987 Pneumococcal Vaccine: 50+ Ye ars (1 of 1 - PCV) 2018 Zoster Vaccines (1 of 2) 2018 COVID-19 Vaccine (2023-2 5 season) 2023 Cholesterol Screening (Lipid Panel) 04/23/2024 Colorectal Cancer Screening: Colonoscopy 04/23/2024 Depression Screening 04/23/2024 HIV Screening 04/23/2024 Hepatitis C Screening 04/23/2024 Social Influencers of Health Screening 04/23/2024 Influenza Vaccine (Season Ended) 2024 HIB Vaccines Aged Out No longer eligi [...] age to complete this topic Meningococcal B Vaccine Aged Out No l onger eligible based on patient's age to complete [...] topic Insurance MEDICA[place] - [place] Care Teams Gallery Intern Relationship Specialty Start Date End Date Carolee Shea MD [address] [place] [address] PCP - General Internal Medicine 04/23/24
--- OUTSIDE RECORDS SUMMARY | 2024-06-19 18:39 | XMS_ITS | Patient Health Record ---
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 Name Role Phone Kylee Guerra Primary Care Provider Félix Crowley Unavailable [phone] Allergies Allergen (clinical drug ingredient) Drug/Non Drug [...] Problem Status W/U Status Risk Notes Problem 235218040 Colon cancer screening (Z12.11) Active confirmed Problem [id number] History of adenomatous polyp of colon (Z86.010) Active confirmed Problem [id number] Preprocedural examination (Z01.818) Active confirmed Encounters Encounter Location Date Provider Diagnosis [facility] [address] [place] [phone] 09/06/2023 Félix Matt [facility] [address] [place] [phone] 01/17/2024 Félix Matt [facility] [address] [place] [phone] 02/22/2024 Félix Matt Plan Of Treatment Future Test Test Name Order Date COLONOSCOPY 04/22/2022 Insurance Providers Payer Name Payer Address Payer Phone Subscriber Number Group Number Insured Name Patient Relationship to Insured Coverage Start Date Coverage End Date MEDICAID OF [employer] [address] [place] [id number] AAKASH KENT Self - patient is the insured Medical (General) History Medical History History ICD Code Seasonal allergies Denies OR,DM,CVA,Lung disease,renal dise ase Anxiety Colonoscopy 02/2014 with rem oval of a small tubular adenoma with Dr. Mccrary Neck injury with 2 discs--se eing Dr. Rose--will probably have surgery later in 2022 Surgical History Surgery Date(Month/Year) Appendectomy
--- OUTSIDE RECORDS SUMMARY | 2024-06-19 18:39 | XMS_ITS | Encounter Summary ---
Author Organization [employer] Address [address] [place] [id number] Care Team Providers Care Communications Maintainer Name Role Phone Kylee Guerra MD Primary Care Pro vider Carolee Shea MD Primary Care Provider [phone] Reason for Visit * Reason Onset Date Comments Medication Question 12/09/2022 Encounter Details Date Type Department Care Team ([facility] st Contact Info) Description 12/09/2022 Telephone [facility] [address] [place] [address] Kylee Guerra MD [address] [place], [place] [phone] Medication Question Social History Tobacco Use Types [...] Description 07/03/2024 2:15 PM EDT Clinical Support [facility] [address] [place] [address] documented as of this encounter Visit Diagnoses Not on filedocumented in this encounter Additional Health Concerns Assessment Noted Time PHQ-9 Depression Total Score: 11 023 11:12 AM EDT documented as of this encounter Care Teams Communications Maintainer Relationship Specialty Start Date End Date Kylee Guerra MD [address] [place] [phone] PCP - General Internal Medicine 08/06/22 10/06/23 Carolee Shea MD [address] [place] [address] PCP - General Internal Medicine 10/07/23 documented as of this encounter
--- OUTSIDE RECORDS SUMMARY | 2024-06-19 18:39 | XMS_ITS | Data Portability ---
Author Organization [place] 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 Work Status: Out of work [email or web address] Not available 09/16/2022 08:42:36 01/26/2023 01/26/2023 Assessment: [...] upper extremity carpal tunnel syndrome 2023 024 [facility] Central Scheduling, [address] [place], [address], 4 07:35:00 MRI, cervical spine, w/o contrast - Neck pain/radicu lopathy eval C6-7, C7-T1 stenosis (CPT: 00005) 2022 023 [place] [facility], [address], [place], [address], 3 14:30:26 Medication Orders ibuprofen 800 mg tablet [address] [facility] #[id number], [address] [facility], [place], [address], 4 11:35:51 Patient TargetsNo targets recorded. Patient InstructionsNo instructions recorded. Reason for Referral None Reported. Results Created Date Observation Date Name Description Value Unit Range Abnormal Flag Note LastModifiedBy Organization Detail LastModifiedTime 09/17/1909/16/2022 CBC WBC 7.05 K/uL 4.00-[address] [facility] Central Scheduling [address] [place], [address], 09/16/2022 10:13:06 09/17/1909/16/2022 CBC RBC 4.67 M/uL 4.10-[address] [facility] Central Scheduling [address] [place], [address], 09/16/2022 10:13:06 09/17/19 23 09/16/2022 CBC hemoglobin 14.5 g/dL 12.7-[address] [facility] Central Scheduling [address] [place], [address], 09/16/2022 10:13:06 09/17/19 23 09/16/2022 CBC hematocrit 42.9 % 38.1-[address] [facility] Central Scheduling [address] [place], [address], 09/16/2022 10:13:06 09/17/19 23 09/16/2022 CBC MCV 92 fL 82-[address] [facility] Central Scheduling [address] [place], [address], 09/16/2022 10:13:06 09/17/19 23 09/16/2022 CBC RDW 12.0 % 11.5-[address] [facility] Central Scheduling [address] [place], [address], 09/16/2022 10:13:06 09/17/19 23 09/16/2022 CBC platelet count 259 K/uL 150-[address] [facility] Central Scheduling [address] [place], [address], 09/16/2022 10:13:06 09/17/19 23 09/16/2022 CBC MCH 31.0 pg 23.0-3 7.0 Not Available [facility] [address] [place], [address], 09/16/2022 10:13:06 09/17/19 23 09/16/2022 CBC MCHC 33.8 g/dL 29.0-3 8.0 Not Available [facility] Scheduling [address] [place], [address], 09/16/2022 10:13:06 09/17/19 23 09/16/2022 CBC mean platelet volume 9.7 fL 6.0-14 .0 Lab Direc tor: ISAIAH MOORE Not Available [facility] [address] [place], [address], 09/16/2022 10:13:06 09/17/19 23 09/16/2022 PROTI ME-IN R PT 13.0 s 12.2-1 4.2 Not Available [facility] [address] [place], [address], 09/16/2022 10:23:08 09/17/19 23 09/16/2022 PROTI ME-IN R INR 1.0 0.9-1. 1 Lab Direc tor: ISAIAH MOORE Not Available [facility] [address] [place], [address], 09/16/2022 10:23:08 09/17/19 23 09/16/2022 BASIC METAB OLIC PANEL sodium 139 mmol/ L 135-14 6 Not Available [facility] [address] [place], [address], 09/16/2022 11:49:17 09/17/19 23 09/16/2022 BASIC METAB OLIC PANEL potassium 4.9 mmol/ L 3.4-5. 2 Plasm a sampl e Sampl es teste d in serum may exhib it a highe r potas sium value than those teste d on plasm a. Our curre nt range is based on plasm a testi ng. Not Available [facility] Scheduling [address] [place], [address], 09/16/2022 11:49:17 09/17/19 23 09/16/2022 BASIC METAB OLIC PANEL chloride 109 mmol/ L 98-110 Not Available [facility] Scheduling [address] [place], [address], 09/16/2022 11:49:17 09/17/19 23 09/16/2022 BASIC METAB OLIC PANEL total CO2 23 mmol/ L 24-32 low Not Available [facility] [address] [place], [address], 09/16/2022 11:49:17 09/17/19 23 09/16/2022 BASIC METAB OLIC PANEL anion gap 7 mmol/ L 2-15 Not Available [facility] [address] [place], [address], 09/16/2022 11:49:17 09/17/19 23 09/16/2022 BASIC METAB OLIC PANEL BUN 19 mg/dL 7-24 Not Available [facility] [address] [place], [address], 09/16/2022 11:49:17 09/17/1909/16/2022 BASIC METAB OLIC PANEL creatinine 1.1 mg/dL 0.6-1. 3 Not Available [facility] Scheduling [address] [place], [address], 09/16/2022 11:49:17 09/17/1909/16/2022 BASIC METAB OLIC PANEL glucose 97 mg/dL 70-118 Not Available [facility] Scheduling [address] [place], [address], 09/16/2022 11:49:17 09/17/19 23 09/16/2022 BASIC METAB OLIC PANEL calcium 9.5 mg/dL 8.5-[address] [facility] Central Scheduling [address] [place], [address], 09/16/2022 11:49:17 09/17/19 23 09/16/2022 BASIC METAB [...] Direc tor: ISAIAH MOORE Not Available [facility] Scheduling [address] [place], [address], 09/16/2022 11:49:17 12/17/19 23 12/16/2022 CBC WBC 8.62 K/uL 4.00-[address] [facility] Scheduling [address] [place], [address], 12/16/2022 10:36:21 12/17/19 23 12/16/2022 CBC RBC 4.84 M/uL 4.10-[address] [facility] Scheduling [address] [place], [address], 12/16/2022 10:36:21 12/17/19 23 12/16/2022 CBC hemoglobin 15.2 g/dL 12.7-[address] [facility] Scheduling [address] [place], [address], 12/16/2022 10:36:21 12/17/19 23 12/16/2022 CBC hematocrit 44.5 % 38.1-[address] [facility] Scheduling [address] [place], [address], 12/16/2022 10:36:21 12/17/19 23 12/16/2022 CBC MCV 92 fL 82-[address] [facility] Scheduling [address] [place], [address], 12/16/2022 10:36:21 12/17/19 23 12/16/2022 CBC RDW 12.2 % 11.5-[address] [facility] Scheduling [address] [place], [address], 12/16/2022 10:36:21 12/17/19 23 12/16/2022 CBC platelet count 279 K/uL 150-[address] [facility] Scheduling [address] [place], [address], 12/16/2022 10:36:21 12/17/19 23 12/16/2022 CBC MCH 31.4 pg 23.0-[address] [facility] Scheduling [address] [place], [address], 12/16/2022 10:36:21 12/17/19 23 12/16/2022 CBC MCHC 34.2 g/dL 29.0-[address] [facility] Scheduling [address] [place], [address], 12/16/2022 10:36:21 12/17/19 23 12/16/2022 CBC mean platelet volume 9.8 fL 6.0-14 .0 Lab Direc tor: AIRAM ANDREWS Not Available [facility] Scheduling [address] [place], [address], 12/16/2022 10:36:21 12/17/19 23 12/16/2022 PROTI ME-IN R PT 12.7 s 12.2-[address] [facility] Scheduling [address] [place], [address], 12/16/2022 10:53:09 12/17/1912/16/2022 PROTI ME-IN R INR 0.9 0.9-1. 1 Lab Direc tor: AIRAM ANDREWS Not Available [facility] Scheduling [address] [place], [address], 12/16/2022 10:53:09 12/17/1912/16/2022 APTT PTT 25 s 22-36 Unfra ction ated Hepar in Thera damienuti c Range : 70-11 0 secon ds. Lab Direc tor: AIRAM ANDREWS Not Available [facility] Scheduling [address] [place], [address], 12/16/2022 10:53:11 12/17/1912/16/2022 COMPR EHENS FAVIOLA METAB OLIC PANEL sodium 136 mmol/ L 135-[address] [facility] Scheduling [address] [place], [address], 12/16/2022 11:17:10 12/17/1912/16/2022 COMPR EHENS FAVIOLA METAB OLIC PANEL potassium 4.4 mmol/ L 3.4-5. 2 Plasm a sampl e Sampl es teste d in serum may exhib it a highe r potas sium value than those teste d on plasm a. Our curre nt range is based on plasm a testi ng. Not Available [facility] Scheduling [address] [place], [address], 12/16/2022 11:17:10 12/17/1912/16/2022 COMPR EHENS FAVIOLA METAB OLIC PANEL chloride 107 mmol/ L 98-[address] [facility] Scheduling [address] [place], [address], 12/16/2022 11:17:10 12/17/1912/16/2022 COMPR EHENS FAVIOLA METAB OLIC PANEL total CO2 22 mmol/ L 24-[address] [facility] Scheduling [address] [place], [address], 12/16/2022 11:17:10 12/17/1912/16/2022 COMPR EHENS FAVIOLA METAB OLIC PANEL anion gap 7 mmol/ L 2-[address] [facility] Scheduling [address] [place], [address], 12/16/2022 11:17:10 12/17/19 23 12/16/2022 COMPR EHENS FAVIOLA METAB OLIC PANEL BUN 14 mg/dL 7-[address] [facility] Scheduling [address] [place], [address], 12/16/2022 11:17:10 12/17/19 23 12/16/2022 COMPR EHENS FAVIOLA METAB OLIC PANEL creatinine 1.0 mg/dL 0.6-1. [address] [facility] Scheduling [address] [place], [address], 12/16/2022 11:17:10 12/17/1912/16/2022 COMPR EHENS FAVIOLA METAB OLIC PANEL glucose 95 mg/dL 70-[address] [facility] [address] [place], [address], 12/16/2022 11:17:10 12/17/1912/16/2022 COMPR EHENS FAVIOLA METAB OLIC PANEL calcium 9.5 mg/dL 8.5-[address] [facility] Scheduling [address] [place], [address], 12/16/2022 11:17:10 12/17/19 23 12/16/2022 COMPR EHENS FAVIOLA METAB OLIC PANEL total protein 7.7 g/dL 6.2-8. [address] [facility] Scheduling [address] [place], [address], 12/16/2022 11:17:10 12/17/19 23 12/16/2022 COMPR EHENS FAVIOLA METAB OLIC PANEL albumin, blood 4.1 g/dL 3.4-5. 2 Not Available [facility] Scheduling [address] [place], [address], 12/16/2022 11:17:10 12/17/19 23 12/16/2022 COMPR EHENS FAVIOLA METAB OLIC PANEL globulin 3.6 g/dL 2.0-4. 0 Not Available [facility] Scheduling [address] [place], [address], 12/16/2022 11:17:10 12/17/19 23 12/16/2022 COMPR EHENS FAVIOLA METAB OLIC PANEL AST (SGOT) 31 IU/L 11-40 Not Available [facility] Scheduling [address] [place], [address], 12/16/2022 11:17:10 12/17/19 23 12/16/2022 COMPR EHENS FAVIOLA METAB OLIC PANEL ALT (SGPT) 62 IU/L 7-40 high Not Available [facility] Scheduling [address] [place], [address], 12/16/2022 11:17:10 12/17/19 23 12/16/2022 COMPR EHENS FAVIOLA METAB OLIC PANEL alk phosphatase 101 IU/L 30-115 Not Available [facility] Central Scheduling [address] [place], [address], 12/16/2022 11:17:10 12/17/19 23 12/16/2022 COMPR EHENS FAVIOLA METAB OLIC PANEL total bilirubin 0.6 mg/dL 0.0-1. 2 Not Available [facility] Scheduling [address] [place], [address], 12/16/2022 11:17:10 12/17/19 23 12/16/2022 COMPR EHENS [...] Lab Direc tor: AIRAM ANDREWS Not Available [facility] Scheduling [address] [place], [address], 12/16/2022 11:17:10 12/17/19 23 12/16/2022 HEMOG LOBIN A1C hemoglobin A1C 5.7 % 4.6-5. [address] [facility] Scheduling [address] [place], [address], 12/16/2022 13:45:45 12/17/1912/16/2022 HEMOG LOBIN A1C estimated average glucose 117 mg/dL Lab Dire tor: AIRAM ANDREWS Not Available [facility] Scheduling [address] [place], [address], 12/16/2022 13:45:45 01/01/2012/31/2022 CBC WBC 14.59 K/uL 4.00-1 1.[address] [facility] Scheduling [address] [place], [address], 12/31/2022 19:59:31 01/01/20 23 12/31/2022 CBC RBC 4.53 M/uL 4.10-[address] [facility] Scheduling [address] [place], [address], 12/31/2022 19:59:31 01/01/20 23 12/31/2022 CBC hemoglobin 14.1 g/dL 12.7-[address] [facility] Scheduling [address] [place], [address], 12/31/2022 19:59:31 01/01/20 23 12/31/2022 CBC hematocrit 42.6 % 38.1-[address] [facility] Scheduling [address] [place], [address], 12/31/2022 19:59:31 01/01/20 23 12/31/2022 CBC MCV 94 fL 82-[address] [facility] Scheduling [address] [place], [address], 12/31/2022 19:59:31 01/01/20 23 12/31/2022 CBC RDW 12.3 % 11.5-[address] [facility] Scheduling [address] [place], [address], 12/31/2022 19:59:31 01/01/20 23 12/31/2022 CBC platelet count 265 K/uL 150-[address] [facility] Scheduling [address] [place], [address], 12/31/2022 19:59:31 01/01/20 23 12/31/2022 CBC MCH 31.1 pg 23.0-[address] [facility] Scheduling [address] [place], [address], 12/31/2022 19:59:31 01/01/20 23 12/31/2022 CBC MCHC 33.1 g/dL 29.0-[address] [facility] Scheduling [address] [place], [address], 12/31/2022 19:59:31 01/01/20 23 12/31/2022 CBC mean platelet volume 9.6 fL 6.0-14 .0 Lab Direc tor: AIRAM ANDREWS Not Available [facility] Scheduling [address] [place], [address], 12/31/2022 19:59:31 01/01/20 23 12/31/2022 URINA LYSIS WITH URINE CULTU RE REFLE X color, urine Yellow colorl ess, straw, yellow Not Available [facility] Scheduling [address] [place], [address], 12/31/2022 22:30:19 01/01/20 23 12/31/2022 URINA LYSIS WITH URINE CULTU RE REFLE X clarity, urine Clear clear Not Available [facility] Central Scheduling [address] [place], [address], 12/31/2022 22:30:19 01/01/20 23 12/31/2022 URINA LYSIS WITH URINE CULTU RE REFLE X pH, urine 7.0 5.0-9. [address] [facility] Scheduling [address] [place], [address], 12/31/2022 22:30:19 01/01/20 23 12/31/2022 URINA LYSIS WITH URINE CULTU RE REFLE X protein ur Negati ve negati ve Not Available [facility] Scheduling [address] [place], [address], 12/31/2022 22:30:19 01/01/20 23 12/31/2022 URINA LYSIS WITH URINE CULTU RE REFLE X ketone, ur Negati ve negati ve Not Available [facility] Scheduling [address] [place], [address], 12/31/2022 22:30:19 01/01/20 23 12/31/2022 URINA LYSIS WITH URINE CULTU RE REFLE X glucose ur Negati ve negati ve Not Available [facility] Scheduling [address] [place], [address], 12/31/2022 22:30:19 01/01/20 23 12/31/2022 URINA LYSIS WITH URINE CULTU RE REFLE X blood ur Negati ve negati ve Not Available [facility] Scheduling [address] [place], [address], 12/31/2022 22:30:19 01/01/20 23 12/31/2022 URINA LYSIS WITH URINE CULTU RE REFLE X leukocyte ur Negati ve negati ve Not Available [facility] Scheduling [address] [place], [address], 12/31/2022 22:30:19 01/01/20 23 12/31/2022 URINA LYSIS WITH URINE CULTU RE REFLE X nitrite ur Negati ve negati ve Not Available [facility] Scheduling [address] [place], [address], 12/31/2022 22:30:19 01/01/20 23 12/31/2022 URINA LYSIS WITH URINE CULTU RE REFLE X specific gravity ur 1.017 1.001- 1.[address] [facility] Scheduling [address] [place], [address], 12/31/2022 22:30:19 01/01/20 23 12/31/2022 URINA LYSIS WITH URINE CULTU RE REFLE X bilirubin ur Negati ve negati ve Not Available [facility] Scheduling [address] [place], [address], 12/31/2022 22:30:19 01/01/20 23 12/31/2022 URINA LYSIS WITH URINE CULTU RE REFLE X urobilinogen ur Negati ve negati ve Not Available [facility] Scheduling [address] [place], [address], 12/31/2022 22:30:19 01/01/20 23 12/31/2022 URINA LYSIS WITH URINE CULTU RE REFLE X WBC, ur (numeric) < 1 /hpf <=4 Not Available [facility] Central Scheduling [address] [place], [address], 12/31/2022 22:30:19 01/01/20 23 12/31/2022 URINA LYSIS WITH URINE CULTU RE REFLE X RBC, ur (numeric) 1 /hpf <=2 Not Available [facility] Central Scheduling [address] [place], [address], 12/31/2022 22:30:19 01/01/20 23 12/31/2022 URINA LYSIS WITH URINE CULTU RE REFLE X squamous epithelial cells Few /hpf none, rare, few Lab Direc tor: AIRAM ANDREWS Not Available [facility] Scheduling [address] [place], [address], 12/31/2022 22:30:19 01/01/20 23 12/31/2022 CULTU RE, BLOOD blood culture No growth after [address] [facility] Scheduling [address] [place], [address], 01/05/2023 22:02:21 01/01/20 23 12/31/2022 CULTU RE, BLOOD blood culture No growth after 5 days Not Available [facility] Scheduling [address] [place], [address], 01/05/2023 22:02:37 01/02/20 23 01/01/2023 CULTU RE, SPUTU M (INCL GRAM) respiratory culture Normal cristina Not Available [facility] Scheduling [address] [place], [address], 01/03/2023 10:49:26 01/02/2001/01/2023 CULTU RE, SPUTU M (INCL GRAM) smear, gram stain Moder ate Squam ous epith elial cells Moder ate Neutr ophil s Many Gram posit faviola cocci Rare Gram posit faviola rods Rare Gram negat faviola rods Not Available [facility] Scheduling [address] [place], [address], 01/03/2023 10:49:26 01/02/2001/01/2023 BASIC METAB OLIC PANEL sodium 133 mmol/ L 135-14 6 low Not Available [facility] Scheduling [address] [place], [address], 01/01/2023 09:42:35 01/02/2001/01/2023 BASIC METAB OLIC PANEL potassium 4.3 mmol/ L 3.4-5. 2 Plasm a sampl e Sampl es teste d in serum may exhib it a highe r potas sium value than those teste d on plasm a. Our curre nt range is based on plasm a testi ng. Not Available [facility] Scheduling [address] [place], [address], 01/01/2023 09:42:35 01/02/20 23 01/01/2023 BASIC METAB OLIC PANEL chloride 102 mmol/ L 98-110 Not Available [facility] Scheduling [address] [place], [address], 01/01/2023 09:42:35 01/02/20 23 01/01/2023 BASIC METAB OLIC PANEL total CO2 24 mmol/ L 24-32 Not Available [facility] Scheduling [address] [place], [address], 01/01/2023 09:42:35 01/02/20 23 01/01/2023 BASIC METAB OLIC PANEL anion gap 8 mmol/ L 2-[address] [facility] Scheduling [address] [place], [address], 01/01/2023 09:42:35 01/02/20 23 01/01/2023 BASIC METAB OLIC PANEL BUN 18 mg/dL 7-[address] [facility] Scheduling [address] [place], [address], 01/01/2023 09:42:35 01/02/20 23 01/01/2023 BASIC METAB OLIC PANEL creatinine 1.1 mg/dL 0.6-1. 3 Not Available [facility] Scheduling [address] [place], [address], 01/01/2023 09:42:35 01/02/20 23 01/01/2023 BASIC METAB OLIC PANEL glucose 95 mg/dL 70-118 Not Available [facility] Scheduling [address] [place], [address], 01/01/2023 09:42:35 01/02/20 23 01/01/2023 BASIC METAB OLIC PANEL calcium 8.9 mg/dL 8.5-[address] [facility] Scheduling [address] [place], [address], 01/01/2023 09:42:35 01/02/20 23 01/01/2023 BASIC METAB OLIC PANEL estimated GFR (CKD-epi) 76 mL/mi n/bsa >=60 This Cr-ba sed equat ion under estim ates GFR in patie nts with incre ased muscl e mass. Order CYSTA TIN C WITH GFR ESTIM ATE, LAB45 59, if addit ional evalu ation of renal funct ion is neede d. Lab Direc tor: AIRAM ANDREWS Not Available [facility] Scheduling [address] [place], [address], 01/01/2023 09:42:35 01/02/2001/01/2023 CBC AND DIFFE RENTI AL WBC 13.86 K/uL 4.00-1 1[address] [facility] Scheduling [address] [place], [address], 01/01/2023 09:42:55 01/02/2001/01/2023 CBC AND DIFFE RENTI AL RBC 4.41 M/uL 4.10-[address] [facility] Scheduling [address] [place], [address], 01/01/2023 09:42:55 01/02/2001/01/2023 CBC AND DIFFE RENTI AL hemoglobin 13.8 g/dL 12.7-[address] [facility]uling [address] [place], [address], 01/01/2023 09:42:55 01/02/2001/01/2023 CBC AND DIFFE RENTI AL hematocrit 42.5 % 38.1-[address] [facility] Scheduling [address] [place], [address], 01/01/2023 09:42:55 01/02/2001/01/2023 CBC AND DIFFE RENTI AL MCV 96 fL 82-[address] [facility]uling [address] [place], [address], 01/01/2023 09:42:55 01/02/2001/01/2023 CBC AND DIFFE RENTI AL RDW 12.3 % 11.5-[address] [facility]uling [address] [place], [address], 01/01/2023 09:42:55 01/02/2001/01/2023 CBC AND DIFFE RENTI AL platelet count 223 K/uL 150-[address] [facility] Scheduling [address] [place], [address], 01/01/2023 09:42:55 01/02/2001/01/2023 CBC AND DIFFE RENTI AL polys 63.4 % Not Available [facility] [address] [place], [address], 01/01/2023 09:42:55 01/02/2001/01/2023 CBC AND DIFFE RENTI AL lymphocyte 23.9 % Not Available [facility]uling [address] [place], [address], 01/01/2023 09:42:55 01/02/2001/01/2023 CBC AND DIFFE RENTI AL monocyte 11.3 % Not Available [facility]uling [address] [place], [address], 01/01/2023 09:42:55 01/02/2001/01/2023 CBC AND DIFFE RENTI AL eosinophil 0.6 % Not Available [facility]uling [address] [place], [address], 01/01/2023 09:42:55 01/02/2001/01/2023 CBC AND DIFFE RENTI AL basophil 0.4 % Not Available [facility]uling [address] [place], [address], 01/01/2023 09:42:55 01/02/2001/01/2023 CBC AND DIFFE RENTI AL immature granulocytes 0.4 % Not Available [facility] Scheduling [address] [place], [address], 01/01/2023 09:42:55 01/02/2001/01/2023 CBC AND DIFFE RENTI AL absolute gran CT 8.79 K/uL 1.50-7 [address] [facility]uling [address] [place], [address], 01/01/2023 09:42:55 01/02/2001/01/2023 CBC AND DIFFE RENTI AL absolute lymph CT 3.31 K/uL 1.50-[address] [facility] Scheduling [address] [place], [address], 01/01/2023 09:42:55 01/02/2001/01/2023 CBC AND DIFFE RENTI AL absolute mono CT 1.57 K/uL 0.16-1 .[address] [facility] [address] [place], [address], 01/01/2023 09:42:55 01/02/2001/01/2023 CBC AND DIFFE RENTI AL absolute eos CT 0.08 K/uL 0.15-0 .[address] [facility]uling [address] [place], [address], 01/01/2023 09:42:55 01/02/2001/01/2023 CBC AND DIFFE RENTI AL absolute baso CT 0.05 K/uL 0.00-[address] [facility]uling [address] [place], [address], 01/01/2023 09:42:55 01/02/2001/01/2023 CBC AND DIFFE RENTI AL absolute immature gran CT 0.06 K/uL 0.00-[address] [facility]uling [address] [place], [address], 01/01/2023 09:42:55 01/02/20 23 01/01/2023 CBC AND DIFFE RENTI AL MCH 31.3 pg 23.0-[address] [facility] Scheduling [address] [place], [address], 01/01/2023 09:42:55 01/02/20 23 01/01/2023 CBC AND DIFFE RENTI AL MCHC 32.5 g/dL 29.0-[address] [facility] [address] [place], [address], 01/01/2023 09:42:55 01/02/2001/01/2023 CBC AND DIFFE RENTI AL mean platelet volume 10.0 fL 6.0-14 .0 Lab Direc tor: AIRAM ANDREWS Not Available [facility] [address] [place], [address], 01/01/2023 09:42:55 01/03/2001/02/2023 CBC AND DIFFE RENTI AL WBC 11.12 K/uL 4.00-[address] [facility] [address] [place], [address], 01/02/2023 10:08:30 01/03/2001/02/2023 CBC AND DIFFE RENTI AL RBC 4.31 M/uL 4.10-[address] [facility] [address] [place], [address], 01/02/2023 10:08:30 01/03/20 23 01/02/2023 CBC AND DIFFE RENTI AL hemoglobin 13.5 g/dL 12.7-[address] [facility] [address] [place], [address], 01/02/2023 10:08:30 01/03/2001/02/2023 CBC AND DIFFE RENTI AL hematocrit 40.4 % 38.1-[address] [facility] [address] [place], [address], 01/02/2023 10:08:30 01/03/2001/02/2023 CBC AND DIFFE RENTI AL MCV 94 fL 82-[address] [facility] [address] [place], [address], 01/02/2023 10:08:30 01/03/20 23 01/02/2023 CBC AND DIFFE RENTI AL RDW 11.9 % 11.5-[address] [facility] [address] [place], [address], 01/02/2023 10:08:30 01/03/20 23 01/02/2023 CBC AND DIFFE RENTI AL platelet count 239 K/uL 150-[address] [facility] Central Scheduling [address] [place], [address], 01/02/2023 10:08:30 01/03/20 23 01/02/2023 CBC AND DIFFE RENTI AL polys 70.5 % Not Available [facility] Central Scheduling [address] [place], [address], 01/02/2023 10:08:30 01/03/20 23 01/02/2023 CBC AND DIFFE RENTI AL lymphocyte 18.3 % Not Available [facility] Central Scheduling [address] [place], [address], 01/02/2023 10:08:30 01/03/20 23 01/02/2023 CBC AND DIFFE RENTI AL monocyte 8.1 % Not Available [facility] Central Scheduling [address] [place], [address], 01/02/2023 10:08:30 01/03/20 23 01/02/2023 CBC AND DIFFE RENTI AL eosinophil 2.3 % Not Available [facility] Central Scheduling [address] [place], [address], 01/02/2023 10:08:30 01/03/20 23 01/02/2023 CBC AND DIFFE RENTI AL basophil 0.4 % Not Available [facility] Central Scheduling [address] [place], [address], 01/02/2023 10:08:30 01/03/20 23 01/02/2023 CBC AND DIFFE RENTI AL immature granulocytes 0.4 % Not Available [facility] Central Scheduling [address] [place], [address], 01/02/2023 10:08:30 01/03/20 23 01/02/2023 CBC AND DIFFE RENTI AL absolute gran CT 7.83 K/uL 1.50-7 [address] [facility] Central Scheduling [address] [place], [address], 01/02/2023 10:08:30 01/03/20 23 01/02/2023 CBC AND DIFFE RENTI AL absolute lymph CT 2.04 K/uL 1.50-[address] [facility] Sched[facility] [address] [place], [address], 01/02/2023 10:08:30 01/03/20 23 01/02/2023 CBC AND DIFFE RENTI AL absolute mono CT 0.90 K/uL 0.16-[address] [facility] Central Scheduling [address] [place], [address], 01/02/2023 10:08:30 01/03/20 23 01/02/2023 CBC AND DIFFE RENTI AL absolute eos CT 0.26 K/uL 0.15-[address] [facility] Central Scheduling [address] [place], [address], 01/02/2023 10:08:30 01/03/20 23 01/02/2023 CBC AND DIFFE RENTI AL absolute baso CT 0.04 K/uL 0.00-[address] [facility] Central Sched[facility] [address] [place], [address], 01/02/2023 10:08:30 01/03/20 23 01/02/2023 CBC AND DIFFE RENTI AL absolute immature gran CT 0.05 K/uL 0.00-[address] [facility] Central Scheduling [address] [place], [address], 01/02/2023 10:08:30 01/03/20 23 01/02/2023 CBC AND DIFFE RENTI AL MCH 31.3 pg 23.0-[address] [facility] Central Scheduling [address] [place], [address], 01/02/2023 10:08:30 01/03/20 23 01/02/2023 CBC AND DIFFE RENTI AL MCHC 33.4 g/dL 29.0-[address] [facility] Central Scheduling [address] [place], [address], 01/02/2023 10:08:30 01/03/20 23 01/02/2023 CBC AND DIFFE RENTI AL mean platelet volume 9.5 fL 6.0-14 .0 Lab Dire tor: AIRAM ANDREWS Not Available [facility] Central Scheduling [address] [place], [address], 01/02/2023 10:08:30 01/04/20 23 01/03/2023 CBC AND DIFFE RENTI AL WBC 9.66 K/uL 4.00-[address] [facility] Central Scheduling [address] [place], [address], 01/03/2023 06:59:24 01/04/2001/03/2023 CBC AND DIFFE RENTI AL RBC 4.18 M/uL 4.10-[address] [facility] Central Scheduling [address] [place], [address], 01/03/2023 06:59:24 01/04/20 23 01/03/2023 CBC AND DIFFE RENTI AL hemoglobin 13.1 g/dL 12.7-[address] [facility] Central Scheduling [address] [place], [address], 01/03/2023 06:59:24 01/04/20 23 01/03/2023 CBC AND DIFFE RENTI AL hematocrit 39.6 % 38.1-[address] [facility] Central Scheduling [address] [place], [address], 01/03/2023 06:59:24 01/04/20 23 01/03/2023 CBC AND DIFFE RENTI AL MCV 95 fL 82-[address] [facility] Central Scheduling [address] [place], [address], 01/03/2023 06:59:24 01/04/20 23 01/03/2023 CBC AND DIFFE RENTI AL RDW 11.9 % 11.5-[address] [facility] Central Scheduling [address] [place], [address], 01/03/2023 06:59:24 01/04/20 23 01/03/2023 CBC AND DIFFE RENTI AL platelet count 245 K/uL 150-[address] [facility] Central Scheduling [address] [place], [address], 01/03/2023 06:59:24 01/04/20 23 01/03/2023 CBC AND DIFFE RENTI AL polys 63.1 % Not Available [facility] Central Scheduling [address] [place], [address], 01/03/2023 06:59:24 01/04/20 23 01/03/2023 CBC AND DIFFE RENTI AL lymphocyte 22.3 % Not Available [facility] Central Scheduling [address] [place], [address], 01/03/2023 06:59:24 01/04/20 23 01/03/2023 CBC AND DIFFE RENTI AL monocyte 8.3 % Not Available [facility] Central Scheduling [address] [place], [address], 01/03/2023 06:59:24 01/04/20 23 01/03/2023 CBC AND DIFFE RENTI AL eosinophil 5.5 % Not Available [facility] Central Scheduling [address] [place], [address], 01/03/2023 06:59:24 01/04/20 23 01/03/2023 CBC AND DIFFE RENTI AL basophil 0.4 % Not Available [facility] Central Scheduling [address] [place], [address], 01/03/2023 06:59:24 01/04/20 23 01/03/2023 CBC AND DIFFE RENTI AL immature granulocytes 0.4 % Not Available [facility] Central Scheduling [address] [place], [address], 01/03/2023 06:59:24 01/04/20 23 01/03/2023 CBC AND DIFFE RENTI AL absolute gran CT 6.10 K/uL 1.50-[address] [facility] Central Scheduling [address] [place], [address], 01/03/2023 06:59:24 01/04/20 23 01/03/2023 CBC AND DIFFE RENTI AL absolute lymph CT 2.15 K/uL 1.50-[address] [facility] Central Scheduling [address] [place], [address], 01/03/2023 06:59:24 01/04/20 23 01/03/2023 CBC AND DIFFE RENTI AL absolute mono CT 0.80 K/uL 0.16-[address] [facility] Central Scheduling [address] [place], [address], 01/03/2023 06:59:24 01/04/20 23 01/03/2023 CBC AND DIFFE RENTI AL absolute eos CT 0.53 K/uL 0.15-0 .[address] [facility] Central Scheduling [address] [place], [address], 01/03/2023 06:59:24 01/04/20 23 01/03/2023 CBC AND DIFFE RENTI AL absolute baso CT 0.04 K/uL 0.00-[address] [facility] Central Scheduling [address] [place], [address], 01/03/2023 06:59:24 01/04/20 23 01/03/2023 CBC AND DIFFE RENTI AL absolute immature gran CT 0.04 K/uL 0.00-[address] [facility] Central Scheduling [address] [facility] [place], [address], 01/03/2023 06:59:24 01/04/20 23 01/03/2023 CBC AND DIFFE RENTI AL MCH 31.3 pg 23.0-[address] [facility] Central Scheduling [address] [facility] [place], [address], 01/03/2023 06:59:24 01/04/20 23 01/03/2023 CBC AND DIFFE RENTI AL MCHC 33.1 g/dL 29.0-[address] [facility] Central Scheduling [address] [place], [address], 01/03/2023 06:59:24 01/04/20 23 01/03/2023 CBC AND DIFFE RENTI AL mean platelet volume 9.8 fL 6.0-14 .0 Lab Direc tor: AIRAM ANDREWS Not Available [facility] Central Scheduling [address] [place], [address], 01/03/2023 06:59:24 01/05/20 23 01/04/2023 CBC AND DIFFE RENTI AL WBC 7.99 K/uL 4.00-[address] [facility] Central Scheduling [address] [place], [address], 01/04/2023 07:03:15 01/05/2001/04/2023 CBC AND DIFFE RENTI AL RBC 4.15 M/uL 4.10-[address] [facility] Central Scheduling [address] [place], [address], 01/04/2023 07:03:15 01/05/20 23 01/04/2023 CBC AND DIFFE RENTI AL hemoglobin 12.8 g/dL 12.7-[address] [facility] Central Scheduling [address] [place], [address], 01/04/2023 07:03:15 01/05/2001/04/2023 CBC AND DIFFE RENTI AL hematocrit 38.7 % 38.1-[address] [facility] Central Scheduling [address] [place], [address], 01/04/2023 07:03:15 01/05/2001/04/2023 CBC AND DIFFE RENTI AL MCV 93 fL 82-[address] [facility] Central Scheduling [address] [place], [address], 01/04/2023 07:03:15 01/05/2001/04/2023 CBC AND DIFFE RENTI AL RDW 11.8 % 11.5-[address] [facility] Central Scheduling [address] [place], [address], 01/04/2023 07:03:15 01/05/2001/04/2023 CBC AND DIFFE RENTI AL platelet count 277 K/uL 150-[address] [facility] Central Scheduling [address] [facility] [place], [address], 01/04/2023 07:03:15 01/05/2001/04/2023 CBC AND DIFFE RENTI AL polys 50.3 % Not Available [facility] Central Scheduling [address] [place], [address], 01/04/2023 07:03:15 01/05/2001/04/2023 CBC AND DIFFE RENTI AL lymphocyte 29.5 % Not Available [facility] Central Scheduling [address] [place], [address], 01/04/2023 07:03:15 01/05/2001/04/2023 CBC AND DIFFE RENTI AL monocyte 10.0 % Not Available [facility] Central Scheduling [address] [place], [address], 01/04/2023 07:03:15 01/05/20 23 01/04/2023 CBC AND DIFFE RENTI AL eosinophil 9.3 % Not Available [facility] Central Scheduling [address] [place], [address], 01/04/2023 07:03:15 01/05/2001/04/2023 CBC AND DIFFE RENTI AL basophil 0.5 % Not Available [facility] Central Scheduling [address] [place], [address], 01/04/2023 07:03:15 01/05/2001/04/2023 CBC AND DIFFE RENTI AL immature granulocytes 0.4 % Not Available [facility] Central Scheduling [address] [place], [address], 01/04/2023 07:03:15 01/05/20 23 01/04/2023 CBC AND DIFFE RENTI AL absolute gran CT 4.02 K/uL 1.50-[address] [facility] Central Scheduling [address] [place], [address], 01/04/2023 07:03:15 01/05/2001/04/2023 CBC AND DIFFE RENTI AL absolute lymph CT 2.36 K/uL 1.50-[address] [facility] Central Scheduling [address] [place], [address], 01/04/2023 07:03:15 01/05/2001/04/2023 CBC AND DIFFE RENTI AL absolute mono CT 0.80 K/uL 0.16-[address] [facility] Central Scheduling [address] [place], [address], 01/04/2023 07:03:15 01/05/2001/04/2023 CBC AND DIFFE RENTI AL absolute eos CT 0.74 K/uL 0.15-0 .[address] [facility] Central Scheduling [address] [place], [address], 01/04/2023 07:03:15 01/05/2001/04/2023 CBC AND DIFFE RENTI AL absolute baso CT 0.04 K/uL 0.00-[address] [facility] Central Scheduling [address] [place], [address], 01/04/2023 07:03:15 01/05/20 23 01/04/2023 CBC AND DIFFE RENTI AL absolute immature gran CT 0.03 K/uL 0.00-[address] [facility] Central Scheduling [address] [place], [address], 01/04/2023 07:03:15 01/05/2001/04/2023 CBC AND DIFFE RENTI AL MCH 30.8 pg 23.0-[address] [facility] Central Scheduling [address] [place], [address], 01/04/2023 07:03:15 01/05/2001/04/2023 CBC AND DIFFE RENTI AL MCHC 33.1 g/dL 29.0-[address] [facility] Central Scheduling [address] [facility] [place], [address], 01/04/2023 07:03:15 01/05/2001/04/2023 CBC AND DIFFE RENTI AL mean platelet volume 9.8 fL 6.0-14 .0 Lab Direc tor: AIRAM ANDREWS Not Available [facility] Central Scheduling [address] [place], [address], 01/04/2023 07:03:15 09/24/19 23 09/20/2022 MRI, cervi cyndie spine , w/o contr ast No observ ation record ed. [email or web address] [facility] [place] [address] [facility] [address], [place], [address], 09/23/2022 15:55:21 09/27/19 23 09/20/2022 MRI, cervi cyndie spine , w/o contr ast No observ ation record ed. [email or web address] [facility] [place] [address] [facility] [address], [place], [address], 09/29/2022 15:24:41 10/01/19 MRI, cervi cyndie spine , w/o contr ast No observ ation record ed. [facility] [address], [place], [address], 10/12/2022 12:00:06 12/31/1912/30/2022 XR, cervi cyndie spine [...] SIGNED BY: GERRY SEGURA 12:08: [email or web address] [facility] (Radiology) [address] [facility], [place], [address], 12/30/2022 13:41:32 01/01/2012/31/2022 XR, chest , 1 [...] SIGNED BY: RYAN PALACIO 14:22: [email or web address] [facility] (Radiology) [address] [place], [address], 12/31/2022 15:36:17 01/02/2012/31/2022 x-ray XR CHEST 1 VW PORTAB LE INTERFACE [facility] [address] [place], [address], 01/01/2023 04:03:37 01/27/20 23 01/26/2023 x-ray SPINE INTERFACE [facility] [address] [place], [address], 01/26/2023 10:48:06 03/09/19 24 03/09/2023 x-ray SPINE INTERFACE [facility] [address] [place], [address], 03/09/2023 10:56:58 06/16/19 24 06/16/2023 x-ray SPINE INTERFACE [facility] [address] [place], [address], 06/16/2023 11:30:07 08/19/19 24 08/19/2023 elect romyo gram + nerve condu ction study No observ ation record ed. [email or web address] [facility] [address] [place], [address], 08/23/2023 15:21:45 Result Notes None recorded. Problems Name Problem SNOMED Code Status Onset Date Resolution Date Notes Provider Name and Address Organization Details Recorded Time Myofascia l pain syndrome of thoracic spine 310818973511 01 Active 2020 Nam Carlson MD [address] [place], [address], [facility] 1 16:53:35 Neck pain 23040492 Active 2020 Nam Carlson MD [address] [place], [address], [facility] 1 16:53:38 Strain of neck muscle 869731179 Active 2020 Nam Carlson MD [address] [place], [address], [facility] 1 16:53:40 Pain in thoracic spine 707671455 Active 2020 Nam Carlson MD [address] [place], [address], [facility] 1 16:53:41 Cervical radiculop athy 09511896 Active 2020 Nam Carlson MD [address] [place], [address], [facility] 1 16:53:43 Strain of thoracic region 99806719 Active 2020 Nam Carlson MD [address] [place], [address], [facility] 1 16:53:44 Spinal stenosis in cervical region 07222397 Active 2021 Nam Carlson MD [address] [place], [address], [facility] 2 13:33:08 Bilateral carpal tunnel syndrome 124502292645 88861 Active 2023 Nam Carlson MD [address] [place], [address], [facility] 4 11:34:39 Problem Notes None recorded. Procedures Surgical History Date Name Laterality Status Provider Name and Address Organization Details Recorded Time 024 SMN Xray Cervical Spine (4-5) completed BERNIE TINEO [address] [place], [address], [facility] 06/16/2023 11:26:04 024 SMN Xray Cervical Spine (4-5) completed Nam Carlson MD [address] [place], [address], [facility] 03/09/2023 13:01:45 024 Test Interpretation completed Nam Carlson MD [address] [facility] [facility] [place], [address], [facility] 03/09/2023 11:33:49 023 SMN Xray Cervical Spine (4-5) completed Nam Carlson MD [address] [facility] [facility] [place], [address], [facility] 01/26/2023 11:19:28 023 Test Interpretation completed Nam Carlson MD [address] [facility] [facility] [place], [address], [facility] 01/26/2023 11:17:03 023 Test Interpretation completed Nam Carlson MD [address] [facility] [facility] [place], [address], [facility] 09/14/2022 12:41:01 023 CAST CHANGE completed Anushka Negro ATC [facility] [place] 09/10/2022 10:19:49 022 Test Interpretation completed BERNIE TABOR [address] [facility] [place], [address], [facility] 11/17/2021 16:05:54 022 Test Interpretation completed Nam Carlson MD [address] [facility] [place], [address], [facility] 10/14/2021 13:11:53 022 Test Interpretation completed Bing Lai [address] [facility] [place], [address], [facility] 04/24/2021 14:12:46 021 Test Interpretation completed Nam Carlson MD [address] [facility] [facility] [place], [address], [facility] 02/17/2021 16:51:24 021 Needle EMG completed Vince Mendez MD [address] [facility] [facility] [place], [address], [facility] 02/05/2021 13:46:08 021 Nerve Conduction completed Vince Mendez MD [address] [place], [address], [facility] 02/05/2021 13:46:08 Test Interpretation completed Nam Carlson MD [address] [place], [address], [facility] 01/14/2021 14:05:06 SMN Injection Trigger Point (3+) completed ALBINO PETIT MD [address] [place], [address], [facility] 09/23/2020 12:42:49 Test Interpretation completed Nam Carlson MD [address] [place], [address], [facility] 05/15/2020 12:09:24 Imaging Results Imaging Date Name Status LastModified by Organization Details LastModified Time 09/20/2022 MRI, cervical spine, w[facility]o contrast [email or web address] [place] [address], [address], 09/23/2022 15:55:21 09/20/2022 MRI, cervical spine, w/o contrast [place] [address] [facility] [place] [address], [address], 09/29/2022 15:24:41 09/30/2022 MRI, cervical spine, w/o contrast completed [email or web address] [facility] [place], [address], 10/12/2022 12:00:06 12/30/2022 XR, cervical spine, 2 or 3 view completed [address] (Radiology) [address] [place], [address], 12/30/2022 13:41:32 12/31/2022 XR, chest, 1 view completed [address] (Radiology) [address] [place], [address], 12/31/2022 15:36:17 12/31/2022 x-ray completed [facility] [place] [facility] [address] [facility], [place], [address], 01/01/2023 04:03:37 01/26/2023 x-ray completed [facility] [address] [facility] [place], [address], 01/26/2023 10:48:06 03/09/2023 x-ray completed [facility] [facility] [address] [facility] [place], [address], 03/09/2023 10:56:58 06/16/2023 x-ray completed [facility]FACE [facility] [address] [facility], [place], [address], 06/16/2023 11:30:07 08/19/2023 electromyogram + nerve conduction study completed [address] [facility] [address] [place] [address], [address], 08/23/2023 15:21:45 Procedure Notes None recorded. Medical [...] Details Last Updated DateTime 06/15/2023 170.2 cm 187847.8 g Not Available Capsule 06/05 11:21:45 Social History Question Answer Notes LastModified by Organizat ion Details LastModified Time Tobacco Smoking Status Never Smoker Fracisco bourgeois [facility] - [facility] [place] 05/19/2020 16:45:05 What Is Your Level Of Alcohol Consumption? None Information not available 05/19/2020 Auto Related Injury? No Information not available 01/26/2023 Are You Currently Employed? No Information not available 05/19/2020 Who Is Your Employer? [employer] Information not available 05/19/2020 What Is Your [...] History Condition Response Coronary Artery Disease N Other N Gout N MRSA Y Emphysema N Head Trauma/Injury N COPD N Depression N Anxiety Disorder N Muscle, Joint, or Bone Problems Y sleep apnea N Arthritis N Blood Clot N Cancer N Stroke N Leg or Foot Ulcers N Neck Injury N Neurologic Disorder N Rheumatoid Arthritis N Headaches N Kidney Disease N Heart Problems N Carpel Tunnel N Ulcers N Bleeding Disorder N Tuberculosis N AIDS/HIV N Asthma Y Peripheral Vascular Disease N Hepatitis N Neuropathy N Pulmonary Embolism N Anxiety/Depression Y Lung Disease N Pacemaker N Serious Illness or Injuries N High Cholesterol N Liver Disease N Organ Transplant N Allergies/Hayfever N Thyroid Problems N Anemia N Heart Attack (CT) N Diabetes N Seizures/Epilepsy N Reflux/GERD N Heart Disease N Hypertension N Osteoporosis N Past Encounters Encounter ID Performer Location Encounter Start Date Encounter Closed Date Diagnosis/Indication Diagnosis SNOMED-CT Code Diagnosis ICD10 Code Diagnosis Note [id number] Nam Carlson MD [facility] [employer] [address] [place] [address] 05/15/2020 11:13:29 05/16/2020 10:55:34 Neck pain 50043018 M54.2 Strain of neck muscle 36 2996450 S16.1XXA Pain in th oracic spine 344129453 M54.6 Strain of thoracic region 62229704 S29.019A [id number] ALBINO PETIT MD [facility] [place] [address] [place] [address] 05/29/2020 11:24:30 05/30/2020 10:13:19 Cervical spondylosis without myelopathy 384460068 M47.812 Strain of neck muscle 36 3651901 S16.1XXA Myofascial pain syndrome of thoracic spine 1989015992 9101 M79.18 [id number] Jessie Villanueva [facility] [employer] [address] [place] [address] 06/12/2020 11:22:39 06/13/2020 10:51:54 Neck pain 96169888 M54.2 Strain of neck muscle 36 5217325 S16.1XXA Pain in th oracic spine 550143605 M54.6 Strain of thoracic region 23504981 S29.019A [id number] ALBINO PETIT MD [facility] [place] [address] [place] [address] 07/15/2020 15:34:24 07/17/2020 11:43:20 Cervical spondylosis without myelopathy 649941250 M47.812 [id number] Nam Carlson MD [facility] [place] [address] [place] [address] 07/30/2020 14:51:54 07/31/2020 09:34:00 Myofascial pain syndrome of thoracic spine 1406097590 9101 M79.18 Neck pain 27062784 M54.2 Strain of neck muscle 36 9101843 S16.1XXA Pain in th oracic spine 947280300 M54.6 Strain of thoracic region 54915061 S29.019A [id number] ALBINO PETIT MD [facility] [place] [address] [place] [address] 08/14/2020 15:25:09 08/18/2020 11:26:04 Pain 79785578 R52 Myofascial pain 50200523 9 M79.18 [id number] Nam Carlson MD [facility] [place] [address] [place] [address] 09/16/2020 10:52:53 09/18/2020 15:09:26 Myofascial pain syndrome of thoracic spine 0169600268 9101 M79.18 Neck pain 71920501 M54.2 Strain of neck muscle 36 9826137 S16.1XXA Pain in th oracic spine 903982104 M54.6 Strain of thoracic region 55708873 S29.019A [id number] ALBINO PETIT MD [facility] [place] [address] [place] [address] 09/23/2020 08:28:09 09/24/2020 08:48:10 Myofascial pain 390682821 M79.18 [id number] ALBINO PETIT MD [facility] [place] [address] [place] [address] 10/22/2020 11:03:18 10/29/2020 09:29:00 Myofascial pain syndrome of neck 878883406 M54.2 [id number] Nam Carlson MD [facility] [place] [address] [place] [address] 10/23/2020 10:49:35 10/24/2020 09:23:07 Myofascial pain syndrome of thoracic spine 1203491841 9101 M79.18 Neck pain 23191819 M54.2 Strain of neck muscle 36 5884076 S16.1XXA Pain in th oracic spine 814326258 M54.6 Strain of thoracic region 14446402 S29.019A [id number] Nam Carlson MD [facility] [place] [address] [place] [address] 12/08/2020 08:54:32 12/09/2020 10:13:47 Myofascial pain syndrome of thoracic spine 2651211204 9101 M79.18 Neck pain 88089821 M54.2 Strain of neck muscle 36 6176863 S16.1XXA Pain in th oracic spine 512746783 M54.6 Strain of thoracic region 94685640 S29.019A [id number] [facility] [address] [place] [address] 12/30/2020 14:58:46 12/31/2020 09:35:11 Myofascial pain syndrome of thoracic spine 7023637067 9101 M79.18 Neck pain 40791605 M54.2 Strain of neck muscle 36 2053461 S16.1XXA Pain in th oracic spine 416356059 M54.6 Strain of thoracic region 52414993 S29.019A Cervical radiculopathy 81562926 M54.12 [id number] Nam Carlson MD [facility] [address] [facility] [place] [address] 01/14/2021 13:29:10 01/16/2021 10:32:37 Myofascial pain syndrome of thoracic spine [id number] 9101 M79.18 Neck pain 89713854 M54.2 Strain of neck muscle 36 2739703 S16.1XXA Pain in th oracic spine 215520988 M54.6 Strain of thoracic region 44366095 S29.019A Cervical radiculopathy 52193668 M54.12 [id number] Vince Mendez MD [facility] [place] [address] [address] 02/05/2021 13:07:12 02/06/2021 10:15:25 Cervical radiculopathy 81532634 M54.12 [id number] Nam AldoMD [facility] [address] [place] [address] 02/17/2021 15:36:37 02/18/2021 10:24:48 Myofascial pain syndrome of thoracic spine 0357442807 9101 M79.18 Neck pain 63977198 M54.2 Strain of neck muscle 36 5090307 S16.1XXA Pain in th oracic spine 577979096 M54.6 Strain of thoracic region 10496658 S29.019A Cervical radiculopathy 02600424 M54.12 Spinal lj nosis in cervical region 51677065 M48.02 [id number] Nam Carlson MD [facility] [address] [place] [address] 04/24/2021 13:08:27 04/27/2021 12:21:34 Myofascial pain syndrome of thoracic spine 8539776540 9101 M79.18 Neck pain 31213470 M54.2 Strain of neck muscle 36 1431623 S16.1XXA Pain in th oracic spine 253152720 M54.6 Strain of thoracic region 86637757 S29.019A Cervical radiculopathy 90180551 M54.12 Spinal lj nosis in cervical region 47122549 M48.02 [id number] Nam Carlson MD [facility] [address] [address] 10/14/2021 13:05:18 10/15/2021 13:14:15 Myofascial pain syndrome of thoracic spine 3823612900 9101 M79.18 Neck pain 98514947 M54.2 Strain of neck muscle 36 4256708 S16.1XXA Pain in th oracic spine 162105303 M54.6 Strain of thoracic region 34295401 S29.019A Cervical radiculopathy 16073336 M54.12 Spinal lj nosis in cervical region 14124904 M48.02 Left side sciatica 44665 07016 13017 M54.32 Lumbar radiculopathy 128 378616 M54.16 [id number] MD [facility] [place] [address] [place] [address] 11/17/2021 14:32:03 11/19/2021 12:41:54 Myofascial pain syndrome of thoracic spine 3017361528 9101 M79.18 Neck pain 26022265 M54.2 Strain of neck muscle 36 4428465 S16.1XXA Pain in th oracic spine 216170617 M54.6 Strain of thoracic region 12583305 S29.019A Cervical radiculopathy 01153074 M54.12 Spinal lj nosis in cervical region 36804262 M48.02 Left side sciatica 96685 97069 42489 M54.32 Lumbar radiculopathy 128 248153 M54.16 [id number] Anushka Momin i, ATC [facility] [place] [address] [place] [address] 09/09/2022 13:13:23 09/09/2022 17:07:44 Change of dressing 51066764 Z48.00 Cervical radiculopathy 72654976 M54.12 [id number] Nam Carlson MD [facility] [place] [address] [place] [address] 09/16/2022 08:07:53 09/17/2022 13:12:18 Myofascial pain syndrome of thoracic spine 0059515338 9101 M79.18 Neck pain 09703532 M54.2 Strain of neck muscle 36 6312652 S16.1XXA Pain in th oracic spine 773162858 M54.6 Strain of thoracic region 22206002 S29.019A Cervical radiculopathy 97924213 M54.12 Spinal lj nosis in cervical region 79401693 M48.02 Left side sciatica 62132 29483 81250 M54.32 Lumbar radiculopathy 128 573345 M54.16 [id number] Nam Carlson MD [facility] [place] [address] [place] [address] 01/26/2023 10:31:34 02/02/2023 14:45:31 Myofascial pain syndrome of thoracic spine 5115803879 9101 M79.18 Neck pain 77227532 M54.2 Strain of neck muscle 36 8353221 S16.1XXA Pain in th oracic spine 740593424 M54.6 Strain of thoracic region 69611593 S29.019A Cervical radiculopathy 76885180 M54.12 Spinal lj nosis in cervical region 19662278 M48.02 Left side sciatica 48075 99336 54252 M54.32 Lumbar radiculopathy 128 913550 M54.16 [id number] Nam Carlson MD [facility] [address] [place] [address] 03/09/2023 10:32:04 03/11/2023 15:55:06 Myofascial pain syndrome of thoracic spine 1552467489 9101 M79.18 Neck pain 04702148 M54.2 Strain of neck muscle 36 1387860 S16.1XXA Pain in th oracic spine 624366504 M54.6 Strain of thoracic region 45054037 S29.019A Cervical radiculopathy 43073528 M54.12 Spinal lj nosis in cervical region 60084165 M48.02 Left side sciatica 09789 11475 43420 M54.32 Lumbar radiculopathy 128 162259 M54.16 Bilateral carpal tunnel syndrome 4819797528 1063841 G56.03 [id number] Nam Carlson MD [facility] [address] [place] [address] 06/16/2023 10:45:13 06/17/2023 15:34:29 Myofascial pain syndrome of thoracic spine 0284583722 9101 M79.18 Neck pain 77154446 M54.2 Strain of neck muscle 36 0918940 S16.1XXA Pain in th oracic spine 425227840 M54.6 Strain of thoracic region 25693851 S29.019A Cervical radiculopathy 07772120 M54.12 Spinal lj nosis in cervical region 19353851 M48.02 Left side sciatica 40500 76312 69320 M54.32 Lumbar radiculopathy 128 782358 M54.16 Bilateral carpal tunnel syndrome 8580327972 9694133 G56.03 Health Concerns Section Related Observation LastModified by Organization Detai ls LastModified Time None Recorded Concern Status LastModified by Organization Details LastModified Time None Recorded Advance Directives Directive None Recorded Payers Encounter Date Sequence Insurance Name Policy Number Policy Fowler Covered Member ID Fowler Member ID Guarantor Name 09/09/2022 1 [place] [facility] Tc Malone [id number] Tc Malone 09/16/2022 [facility] [employer] [facility] 01/26/2023 [facility] [employer] [facility] Tc Malone 03/09/2023 [facility] [employer] [facility] 06/16/2023 [facility] [employer] [facility] Tc Malone Notes Date Note Type Note [...] 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 This has been present for many many months. He has been out of work. He is scheduled for a C6-7, C7-T1 total disc replacement however has had no recent MRI. His latest study is from 04/15/2021. He has no lower extremity numbness or weakness. There is no bowel bladder dysfunction or perineal numbness. Eleuterio Espino [facility] [place], [address], [facility] [place] 09/16/2022 08:43:41 3 text/html Diagnosis:Left active C7, [...] as well. Nam Carlson MD [address] [place], [address], [facility] 01/26/2023 11:28:51 4 text/html Diagnosis:Left active [...] as well. Nam Carlson MD [address] [place], [address], [facility] 03/09/2023 13:02:42 4 text/html Diagnosis:Left active [...] night sweats. BERNIE TINEO [address], [place], [address], [facility] [place] 06/16/2023 11:33:40
--- OUTSIDE RECORDS SUMMARY | 2024-06-19 18:39 | XMS_ITS | Encounter Summary ---
Author Organization [employer] Address [address] [place] [address] Care Team Providers Care Chairman And Chief Executive Officer Name Role Phone Kylee Guerra MD Primary Care Pro vider Carolee Shea MD Primary Care Provider [phone] Reason for Visit * Reason Onset Date Comments Durable Medical Equipment 05/26/2023 Encounter Details Date Type Department Care Team ([facility] st Contact Info) Description 05/26/2023 Telephone [facility] [address] [place] [address] Kylee Guerra MD [address] [place], [place] [phone] Durable Medical Equipment Social History Tobacco Use [...] states that he will have his girlfriend continuous pickling line pickler helper this new script and also that he will come in to the [facility] this afternoon to get checked out. After speaking with natural resources professor this morning, he feels this is the [...] message pt will need to go to [facility] for evaluation thanks * Telephone Encounter - [...] Description 07/03/2024 2:15 PM EDT Clinical Support [facility] [address] [place] [address] documented as of this encounter Visit Diagnoses Not on filedocumented in this encounter Additional Health Concerns Assessment Noted Time PHQ-9 Depression Total Score: 8 05/13/19 24 9:14 AM EST documented as of this encounter Care Teams Chairman And Chief Executive Officer Relationship Specialty Start Date End Date Kylee Guerra MD [address] [place] [address] PCP - General Internal Medicine 08/06/22 10/06/23 Carolee Shea MD [address] [place] [address] PCP - General Internal Medicine 10/07/23 documented as of this encounter
--- OUTSIDE RECORDS SUMMARY | 2024-06-19 18:39 | XMS_ITS | Encounter Summary ---
Author Organization [employer] Address [address] [place] [address] Care Team Providers Care Produce Manager Name Role Phone Kylee Guerra MD Primary Care Pro vider Carolee Shea MD Primary Care Provider +[phone] Reason for Visit * Reason Onset Date Comments Hospital Follow-up 07/14/2023 Encounter Details Date Type Department Care Team (Late st Contact Info) Description 07/14/2023 Telephone [facility] [address] [place], [place] [phone] Kylee Guerra MD [address] [place], [place] [phone] Hospital Follow-up Social History Tobacco Use Types [...] schedule HDF appointment. Please contact pt at [phone] * Telephone Encounter - Autumn Todd - 07/14/2023 4:24 PM EDT Tc from pt requesting a HDF appt. [place] [facility] [place] of admission: 07/10 Discharge date: 07/13 Diagnosed: acute hypoxic respiratory failure, asthma exacerbation Please contact pt at [phone] documented in this encounter Plan of Treatment Upcoming Encounters Date Type Department Care Team (Late st Contact Info) Description 07/03/2024 2:15 PM EDT Clinical Support [facility] [address] [place] [address] documented as of this encounter Visit Diagnoses Not on filedocumented in this encounter Additional Health Concerns Assessment Noted Time PHQ-9 Depression Total Score: 8 05/13/19 24 9:14 AM EST documented as of this encounter Care Teams Produce Manager Relationship Specialty Start Date End Date Kylee Guerra MD [address] [place] [address] PCP - General Internal Medicine 08/06/22 10/06/23 Carolee Shea MD [address] [place] [address] PCP - General Internal Medicine 10/07/23 documented as of this encounter
--- OUTSIDE RECORDS SUMMARY | 2024-06-19 18:39 | XMS_ITS | Encounter Summary ---
Author Organization [employer] Address [address] [place] [address] Care Team Providers Care Websphere Message Broker Developer Name Role Phone Carolee Shea MD Primary Care Provider [phone] Reason for Referral * Consultation (Routine) - Authorized Specialty Diagnoses / Procedures Referred By Augusta busch Referred To Contact Podiatry Diagnoses Onychomycosis Carolee Shea MD [address] [place] [address] Phone: tel: fax: Lencho Cheung DPM [address] [place] [address] Phone: tel: fax: Referral ID Status Reason Start Date Expiration Date Visits Requested Visits Authorized [id number] Authorized Specialty Services Required 04/04/2024 04/04/2025 1 1 Encounter Details Date Type Department Care Team ([facility] st Contact Info) Description 04/04/2024 Orders Only [facility] [address] [place], [place] [phone] Carolee Shea MD [address] [place] [address] Onychomycosis (Primary Dx) Social History Tobacco Use [...] as of this encounter Plan of Treatment Upcoming Encounters Date Type Department Care Team (Late st Contact Info) Description 07/03/2024 2:15 PM EDT Clinical Support [facility] [address] [place] [address] Scheduled Referrals Name Type Priority Associated Diagnoses Orde r Schedule Referral to Podiatry Outpatient Referral Routine Onychomycosis Expected: 04/04/2024 (Approximate), Expires: 04/04/2025 documented as of this encounter Visit Diagnoses Diagnosis Onychomycosis- Primary Dermatophytosis of nail documented in this encounter Additional Health Concerns Assessment Noted Time PHQ-9 Depression Total Score: 8 05/13/19 9:14 AM EST documented as of this encounter Care Teams Websphere Message Broker Developer Relationship Specialty Start Date End Date Carolee Shea MD [address] [place] [address] PCP - General Internal Medicine 10/07/23 documented as of this encounter
--- OUTSIDE RECORDS SUMMARY | 2024-06-19 18:39 | XMS_ITS | Encounter Summary ---
Author Organization [employer] Address [address] [place] [address] [address] [place] [address] Care Team Providers Care Concrete Products Dispatcher Name Role Phone Carolee Shea MD Primary Care Provider [phone] Encounter Details Date Type Department Care Team ([facility] st Contact Info) Description 10/07/2023 Orders Only [facility] [address] [place], [place] [phone] Carolee Shea MD [address] [place] [address] Inverse psoriasis; Psoriasis Social History Tobacco Use [...] Upcoming Encounters Date Type Department Care Team ([facility] st Contact Info) Description 07/03/2024 2:15 PM EDT Clinical Support [facility] [address] [place] [address] documented as of this encounter Visit Diagnoses Diagnosis Inverse psoriasis Other psoriasis Psoriasis Other psoriasis documented in this encounter Additional Health Concerns Assessment Noted Time PHQ-9 Depression Total Score: 8 05/13/19 24 9:14 AM EST documented as of this encounter Care Teams Concrete Products Dispatcher Relationship Specialty Start Date End Date Carolee Shea MD [address] [place] [address] PCP - General Internal Medicine 10/07/23 documented as of this encounter
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
--- OUTSIDE RECORDS SUMMARY | 2024-06-19 18:39 | XMS_ITS | Encounter Summary ---
Author Organization [employer] Address [address] [place] [address] 7 [place] [address] Care Team Providers Care Business Analyst Name Role Phone Kylee Guerra MD Primary Care Pro vider Carolee Shea MD Primary Care Provider [phone] Encounter Details Date Type Department Care Team ([facility] st Contact Info) Description 09/19/2023 Orders Only [facility] MED & PEDS [address] [place], [place] [phone] Carolee Shea MD [address] [place] [address] Erectile dysfunction, unspecified erectile dysfunction type (Primary [...] Description 07/03/2024 2:15 PM EDT Clinical Support [facility] MED & PEDS [address] [place] [address] documented as of this encounter Procedures Procedure Name Priority Date/Time Associated Diagnosis Comments TESTOSTERONE, TOTAL, MALES (ADULT), IA Routine 09/27/2023 10:34 AM EDT Erectile dysfunction, unspecified erectile dysfunction type documented in this encounter Results * Testosterone, Total, males (Adult), IA (09/27/2023 10:34 AM EDT) Testosterone, Total 281 250 - 1100 ng/dL [facility] Comment:For additional infor ravi, please refer [email or web address]/faq/[email or web address](This link is being provided for informational/educational purposes only.)This test was developed and its analytical performancecharacteristics have been determined by [employer] [place], [place]. It hasnot been cleared or approved by the U.S. Food and DrugAdministration. This assay has been validated pursuantto the CLIA regulations and is used for clinicalpurposes.THIS TEST WAS PERFORMED AT:[employer] [place] [address]IAQJJNWJOHN HERNADEZ MD,PHD Blood Venous blood specimen / Unknown 09/27/2023 10:34 AM EDT 09/27/2023 1:58 PM EDT Carolee Shea MD LAB BLOOD ORDERABLES Final Result [facility] [address] [place] [phone] [phone] documented in this encounter Visit Diagnoses Diagnosis Erectile dysfunction, unspecified erectile dysfunction type- Primary documented in this encounter Additional Health Concerns Assessment Noted Time PHQ-9 Depression Total Score: 8 05/13/19 24 9:14 AM EST documented as of this encounter Care Teams Business Analyst Relationship Specialty Start Date End Date Kylee Guerra MD [address] [place] [address] PCP - General Internal Medicine 08/06/22 10/06/23 Carolee Shea MD [address] [place] [address] PCP - General Internal Medicine 10/07/23 documented as of this encounter
--- OUTSIDE RECORDS SUMMARY | 2024-06-19 18:39 | XMS_ITS | Encounter Summary ---
Author Organization [employer] Address [address] [place] [address] 7 [place] [address] Care Team Providers Care Special Library Librarian Name Role Phone Kylee Guerra MD Primary Care Pro vider Carolee Shea MD Primary Care Provider [phone] Reason for Visit * Reason Comments Med Refill Encounter Details Date Type Department Care Team (Late st Contact Info) Description 07/06/2023 Refill [facility] MED & PEDS [address] [place] [address] Mackenzie Briseno MD [address] [place] [address] Social History Tobacco Use Types Packs/Day Years [...] Description 07/03/2024 2:15 PM EDT Clinical Support [facility] MED & PEDS [address] [place] [address] documented as of this encounter Visit Diagnoses Not on filedocumented in this encounter Additional Health Concerns Assessment Noted Time PHQ-9 Depression Total Score: 8 05/13/19 24 9:14 AM EST documented as of this encounter Care Teams Special Library Librarian Relationship Specialty Start Date End Date Kylee Guerra MD [address] [place] [address] PCP - General Internal Medicine 08/06/22 10/06/23 Carolee Shea MD [address] [place] [address] PCP - General Internal Medicine 10/07/23 documented as of this encounter
--- OUTSIDE RECORDS SUMMARY | 2024-06-19 18:39 | XMS_ITS ---
Author Organization [facility] Address [address] [place] [phone] Care Team Providers Care Principal Security Architect Name Role Phone Kylee Guerra Primary Care Provider Félix Crowley [phone] REASON FOR VISIT Patient presents today for a colon screening Encounters Encounter Location Date Provider Diagnosis [facility] [address] [place] [phone] 02/22/2024 Féilx Matt Plan Of Treatment No Information Progress Notes * YOLI, DEDRICKESTEFANIDOB:1970 (53 yo M)Acc No.[id number]:02/22/2024 Progress Notes Patient:?AAKASH KENT Provider:?Félix Matt MD :1970???Age:53 Y???Sex:Male Carlos e:02/22/2024 Address:[address] [place], [place] [id number] Pcp:Kylee Garcia Subjective: * Chief Complaints: * [...] MD Date:? 024 Generated for Gisele saxena/Mariana/eTransmitting on:?06/19/2024 06:39 PM EDT
--- OUTSIDE RECORDS SUMMARY | 2024-06-19 18:39 | XMS_ITS | Encounter Summary ---
Author Organization [employer] Address [address] [place] [address] Care Team Providers Care [place] [employer] [place] Dental Lab Technician Name Role Phone Kylee Guerra MD Primary Care Pro vider Carolee Shea MD Primary Care Provider [phone] Reason for Visit * Reason Onset Date Comments Nurse Triage 12/27/2022 Encounter Details Date Type Department Care Team ([facility] st Contact Info) Description 12/27/2022 Telephone [facility] [address] [place] [address] Kylee Guerra MD [address] [place], [place] [phone] Nurse Triage Social History Tobacco Use Types [...] this outcome Please contact pt spouse at [phone] documented in this encounter Plan of Treatment Upcoming Encounters Date Type Department Care Team (Late st Contact Info) Description 07/03/2024 2:15 PM EDT Clinical Support [facility] MED & PEDS [address] [place] [address] documented as of this encounter Visit Diagnoses Not on filedocumented in this encounter Additional Health Concerns Assessment Noted Time PHQ-9 Depression Total Score: 11 023 11:12 AM EDT documented as of this encounter Care Teams [employer] [facility] Lab Technician Relationship Specialty Start Date End Date Kylee Guerra MD [address] [place] [address] PCP - General Internal Medicine 08/06/22 10/06/23 Carolee Shea MD [address] [place] [address] PCP - General Internal Medicine 10/07/23 documented as of this encounter
--- OUTSIDE RECORDS SUMMARY | 2024-06-19 18:39 | XMS_ITS | Encounter Summary ---
Author Organization [employer] Address [address] [place] [address], [place] [address] Care Team Providers Care Junior Linux Systems Administrator Name Role Phone Carolee Shea MD Primary Care Provider [phone] Reason for Referral * Consultation (Routine) - Authorized Specialty Diagnoses / Procedures Referred By Augusta busch Referred To Contact Psychiatry / Behavioral Health Diagnoses Mild depression of parent Feeling angry Lay Narvaez FNP [address] [place] [address] Phone: tel: fax: Referral ID Status Reason Start Date Expiration Date Visits Requested Visits Authorized [id number] Authorized Specialty Services Required 06/19/2024 06/19/2025 1 1 * Consultation (Routine) - Authorized Specialty Diagnoses / Procedures Referred By Augusta busch Referred To Contact Behavioral Health Diagnoses Mild depression of parent Feeling angry Lay Narvaez FNP [address] [place] [address] Phone: tel: fax: Referral ID Status Reason Start Date Expiration Date Visits Requested Visits Authorized [id number] Authorized Specialty Services Required 06/19/2024 06/19/2025 1 1 Encounter Details Date Type Department Care Team ([facility] st Contact Info) Description 06/19/2024 2:15 PM EDT Office Visit [facility] MED & PEDS [address] [place] [address] Carolee Shea MD [address] [place] [address] Moderate asthma with exacerbation, unspecified whether persistent (Primary Dx); Class 2 obesity due to excess calories with body mass index (BMI) of 35.0 to 35.9 in adult, unspecified whether serious comorbidity present; Mild depression; Elevated BP without diagnosis of hypertension; of parent; Hospital discharge follow-up; Feeling angry; Dietary counseling; Exercise counseling Social History Tobacco Use Types Packs/Day Years [...] AM EDT documented as of this encounter Last Filed Vital Signs Vital Sign Reading [...] Mass Index 35.35 06/19/2024 2:41 PM EDT documented in this encounter Plan of Treatment Upcoming Encounters Date Type Department Care Team (Late st Contact Info) Description 07/03/2024 2:15 PM EDT Clinical Support [facility] MED & PEDS [address] [place] [address] Scheduled Orders Name Type Priority Associated Diagnoses Orde r Schedule CBC auto differential Lab Routine Class 2 obesity due to excess calories with body mass index (BMI) of 35.0 to 35.9 in adult, unspecified whether serious comorbidity present Expected: 06/19/2024 (Approximate), Expires: 06/19/2025 Lipid Panel, Standard Lab Routine Class 2 obesity due to excess calories with body mass index (BMI) of 35.0 to 35.9 in adult, unspecified whether serious comorbidity present Expected: 06/19/2024 (Approximate), Expires: 06/19/2025 Comprehensive Metabolic Panel Lab Routine Class 2 obesity due to excess calories with body mass index (BMI) of 35.0 to 35.9 in adult, unspecified whether serious comorbidity present Expected: 06/19/2024 (Approximate), Expires: 06/19/2025 Hemoglobin A1c Lab Routine Class 2 obesity due to excess calories with body mass index (BMI) of 35.0 to 35.9 in adult, unspecified whether serious comorbidity present Expected: 06/19/2024 (Approximate), Expires: 06/19/2025 Scheduled Referrals Name Type Priority Associated Diagnoses Order Schedule Referral to Behavioral Health Outpatient Referral Routine Mild depression of parent Feeling angry Expected: 06/19/2024 (Approximate), Expires: 06/19/2025 Referral to Behavioral Health Psychiatry Outpatient Referral Routine Mild depression of parent Feeling angry Expected: 06/19/2024 (Approximate), Expires: 06/19/2025 documented as of this encounter Visit Diagnoses Diagnosis Moderate asthma with exacerbation, unspecified whether persistent- Primary Class 2 obesity due to excess calories with body mass index (BMI) of 35.0 to 35.9 in adult, unspecified whether serious comorbidity present Mild depression Depressive disorder, not elsewhere classified Elevated BP without diagnosis of hypertension of parent Hospital discharge follow-up Other follow-up examination Feeling angry Irritability Dietary counseling Dietary surveillance and counseling Exercise counseling documented in this encounter Additional Health Concerns Assessment Noted Time PHQ-9 Depression Total Score: 8 05/13/19 24 9:14 AM EST documented as of this encounter Care Teams Junior Linux Systems Administrator Relationship Specialty Start Date End Date Carolee Shea MD [address] [place] [address] PCP - General Internal Medicine 10/07/23 documented as of this encounter
--- OUTSIDE RECORDS SUMMARY | 2024-06-19 18:39 | XMS_ITS ---
Author Organization [facility] Address [address] [place] [phone] Care Team Providers Care Nursing Unit Manager Name Role Phone Kylee Guerra Primary Care Provider Félix Crowley [phone] REASON FOR VISIT Pt no showed Encounters Encounter Location Date Provider Diagnosis [facility] [address] [place] [phone] 02/22/2024 Félix Matt Plan Of Treatment No Information Progress Notes * AAKASH KENTDOB:1970 (53 yo M)Acc No.[id number]:02/22/2024 Patient:?YOLI AAKASH :1970???Age:53 Y???Sex:Male Address:[address] [place] [address], [address] * true * Date:? Generated for Daliai hemanth/Mariana/eTransmitting on:?06/19/2024 11:33 AM EDT
--- OUTSIDE RECORDS SUMMARY | 2024-06-19 18:39 | XMS_ITS | Encounter Summary ---
Author Organization [employer] Address [address] [facility] 7t [place] [address] Care Team Providers Care Geothermal Production Manager Name Role Phone Carolee Shea MD Primary Care Provider [phone] Encounter Details Date Type Department Care Team (Latest Contact Info) Description 06/19/2024 Travel Social History Tobacco Use Types Packs/Day Years [...] t he electric, gas, oil or water [employer] threatened to shut off services in your [...] Description 07/03/2024 2:15 PM EDT Clinical Support [facility] MED & PEDS [address] [place] [address] documented as of this encounter Visit Diagnoses Not on filedocumented in this encounter Additional Health Concerns Assessment Noted Time PHQ-9 Depression Total Score: 8 05/13/19 24 9:14 AM EST documented as of this encounter Care Teams Geothermal Production Manager Relationship Specialty Start Date End Date Carolee Shea MD [address] [place] [address] PCP - General Internal Medicine 10/07/23 documented as of this encounter
--- OUTSIDE RECORDS SUMMARY | 2024-06-19 18:39 | XMS_ITS ---
Author Organization [facility] Address [address] [place] [id number] Care Team Providers Care Slag Production Worker Name Role Phone Kylee Guerra Primary Care Provider Félix Crowley [phone] REASON FOR VISIT Patient presents today for a colon screening Encounters Encounter Location Date Provider Diagnosis [facility] [address] [place] [id number] 01/17/2024 Félix Matt Plan Of Treatment No Information Progress Notes * YOLI, DEDRICKESTEFANIDOB:1970 (53 yo M)Acc No.[id number]:01/17/2024 Progress Notes Patient:?AAKASH KENT Provider:?Félix Matt MD :1970???Age:53 Y???Sex:Male Carlos e:01/17/2024 Address:[address] [place], [place] [id number] Pcp:Kylee Garcia Subjective: * Chief Complaints: * [...]
[2024-06-19 18:46] LABS: Alanine Aminotransferase 57 U/L (0-40); Albumin Level 4.1 g/dL (3.5-5.0); Alkaline Phosphatase 97 U/L (39-117); Anion Gap 12 (12-20); Aspartate Amino Transferase 28 U/L (5-37); Bilirubin Total 0.5 mg/dL (0.0-1.0); Blood Urea Nitrogen 19 mg/dL (9-16); Calcium 9.5 mg/dL (8.4-10.2); Carbon Dioxide 26 mmol/L (22-29); Chloride 109 mmol/L (96-108); Cholesterol 206 mg/dL (<200); Estimated Glomerular Filt Rate > 60; Glucose Random 74 mg/dL (60-115); HDL Cholesterol 35 mg/dL (>40); LDL Cholesterol Calculated 150 mg/dL (<100); Potassium 4.3 mmol/L (3.3-5.1); Sodium 143 mmol/L (135-145); Total Protein 7.2 g/dL (6.5-8.0); Triglycerides 105 mg/dL (<150)
[2024-06-20 07:11] LABS: Estimated Average Glucose 123 mg/dL; Hemoglobin A1C 160.3202 umol/L; Hemoglobin A1c % 5.9 % (<6.0); Total Hemoglobin (HGBA1C) 3869.8481 umol/L
== END 2024-06-19 15:33 | disposition home or self-care (01) ==
LOC: HO.CHCLDS 15:32
PROVIDERS: Visit Provider Nurse Practitioner Family
DX: E66.812 Obesity, class 2 (principal); Z68.35 Body mass index [BMI] 35.0-35.9, adult; E66.09 Other obesity due to excess calories
CPT/HCPCS: 36415; 80053; 80061; 83036; 85025